=== PATIENT | female | born 1940 | race Caucasian/White ===

== ENCOUNTER → 2017-11-05 08:40 | Outpatient (BNVA) | payer MEDICARE, SELFPAY | PROVIDERS: PCP Family Medicine; Referring Provider Family Medicine; Visit Provider Student in an Organized Health Care Education/Training Program | DX: M76.71 Peroneal tendinitis, right leg (principal) | CPT/HCPCS: 99214 ==

== ENCOUNTER 2017-11-05 12:36 | Outpatient (CLI) | payer MEDICARE, SELFPAY ==
--- NOTE | 2017-11-05 09:30 | DI.RAD_ITS ---
SYMPTOMS/DIAGNOSIS: RT LEG PAIN RIGHT LEG: Two views were obtained. There are mild degenerative changes of the knee. No other significant bony abnormality is seen.
== END 2017-11-05 12:56 ==
PROVIDERS: PCP Family Medicine; Visit Provider Student in an Organized Health Care Education/Training Program
DX: M79.604 Pain in right leg (principal); M17.11 Unilateral primary osteoarthritis, right knee
CPT/HCPCS: 99214; 73590

== ENCOUNTER 2018-02-26 22:08 | Emergency (ER) | payer MEDICARE, SELFPAY ==
[2018-02-26 22:13] VITALS: BP 154/83; PULSE 90; RESP 18; TEMP 36.7; O2SAT 97
--- NOTE | 2018-02-26 22:21 | DI.CT_ITS ---
SYMPTOM/DIAGNOSIS: RT FLANK PAIN RENAL COLIC CT: A noncontrast exam was performed. Comparison is made with 06/14/09. There is severe left hydronephrosis. The left ureter is also severely dilated. There is an obstructing stone in the distal ureter. This is a similar or same position as the stone on the previous exam. It measures 5 mm. in greatest dimension. The degree of hydronephrosis has increased significantly since the previous exam. There is severe renal parenchymal atrophy. A large parapelvic cyst of the right kidney with calcifications is relatively unchanged. No right hydronephrosis is seen. The bladder is unremarkable. The uterus and ovaries also are unremarkable. The visualized portions of the liver and spleen appear normal. The gallbladder, pancreas and adrenals also appear normal. The appendix has a normal appearance. There is no bowel dilatation or inflammatory change. No free fluid or adenopathy is seen. The aorta is normal in diameter. There is a small amount of fat at the umbilicus. Degenerative disc changes are seen in the lumbar spine. IMPRESSION: Severe left hydronephrosis secondary to a 5 mm. stone at the distal left ureter. The stone position is unchanged from the previous exam. There is underlying severe left renal atrophy. There is a relatively stable right parapelvic renal cyst.
--- NOTE | 2018-02-26 22:26 | ED.GENADUL_ITS ---
Discharge Plan Disposition Patient Disposition: HOME Condition: Stable Discharge Details Chief Complaint: FlankPain Clinical Impression: Kidney stone on left side Primary Care Provider: Richie Mendez ED Provider: Trent Ch Home Meds and New Rx's Prescriptions: New ondansetron 4 mg tablet,disintegrating 4 mg PO TID PRN (Reason: nausea and vomiting) Qty: 30 RF: 0 oxycodone 5 mg tablet 5 mg PO Q6H PRN (Reason: pain) Qty: 10 RF: 0 Discharge Instructions Instructions: Kidney Stones (ED) Additional Instructions: You have a kidney stone on the left side you can take 1000mg tylenol every 6 hours. If you need additional pain relief take 1 oxycodone, do not drink alcohol or drive if you take this medicine you should be contacted with an appointment with urology if you have fevers, severe worsening pain that doesn't improve with pain medication or uncontrolled vomit return to the emergency department for reevaluation Medical Decision Making 77 yo female with hx of nonfunctioning kidney who comes in with left flank pain since 11am. She states she has a hx of stones but not in over 10 years and hasn't seen a urologist since. Since 11am she has had sharp left flank and llq pain. Has mild llq pain on exam and cva tenderness. No other abdominal tenderness, no fevers or chills, denies chest pain or sob. Will eval for kidney stone vs diverticulitis with CT and monitor Labs are unremarkable, her pain is much improved. CT shows distal left kidney stone and evidence of chronic obstruction as well. No evidence of infection, is hd stable for d/c. Will have her f/u with urology ADRIANA and return precautions given Differential Diagnosis kidney stone, lumbar strain, diverticulitis Imaging Data Radiologic Study: Attestation: I personally reviewed and interpreted this imaging study as follows: Imaging: CT Scan Radiologist's impression: IMPRESSION: 1. There is an obstructing 4.5 mm diameter distal left ureteric calculus with severe left hydroureter and severe left hydronephrosis. There is almost no discernible renal cortex remaining within the right kidney. No evidence of significant perinephric stranding or periureteric stranding. 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 2. There is a large, complex, septated and calcified renal cyst seen within the right kidney arising from the inferior pole. Impression. There is moderate to severe right hydronephrosis. No definitive right ureteric calculi are identified. Lab Data Lab results reviewed: Yes I reviewed the patient's lab results. HPI General Mode of arrival: ambulatory . Date/Time Provider Initiated Documentation: 02/26/18 22:09 . Limitations to Documentation: no limitations . Information obtained by: patient . History of Present Illness 77 year old F presents to the emergency department with the chief complaint of left flank pain, described as moderate, Quality is described as stabbing, Patient started experiencing this hour(s) (11) and it has been constant. No relieving factors improve symptom(s), No exacerbating factors reported . Patient notes other (nausea). Patient did receive the following treatments prior to arrival, none Related Data Home Medications Medication Instructions Recorded Confirmed ondansetron 4 mg PO TID PRN #30 tab 02/26/18 oxycodone 5 mg PO Q6H PRN #10 tab 02/26/18 Previous Rx's Medication Instructions Recorded ondansetron 4 mg PO TID PRN #30 tab 02/26/18 oxycodone 5 mg PO Q6H PRN #10 tab 02/26/18 Allergies Allergy/AdvReac Type Severity Reaction Status Date / Time codeine AdvReac SLEEPS Unverified 02/26/18 23:29 ibuprofen AdvReac ONE KIDNEY Unverified 02/26/18 23:29 Review of Systems Review of Systems All systems reviewed & are unremarkable except as noted in HPI and below Constitutional Denies chills, Denies fever(s) and Denies weakness Eyes Denies loss of vision ENT Denies change in voice Cardiovascular Denies chest pain and Denies dyspnea Respiratory Denies dyspnea Gastrointestinal Denies nausea Genitourinary Denies dysuria Musculoskeletal Denies joint swelling Integumentary/Breasts Denies rash Neurologic Denies loss of vision and Denies weakness PFSH Medical History Primary osteoarthritis of right knee (Chronic 04/04/15) GERD IBS Migraine Non functing kidney elevated lipids kidney stones visual issues Surgical History Ligation of fallopian tube kidney surgery X 2 procedures for kidney stones Family History Mother Diabetes Dementia Father Heart disease Sister Breast cancer Social History Smoking/Tobacco Use Status: Never Exam Const General: no acute distress Orientation: alert HENMT Head: normal to inspection Ears: external ears normal General nose exam: external nose normal Mouth: moist mucous membranes Eyes General: appearance normal, both eyes and all related structures Neck Neck: normal visual inspection Resp Effort & Inspection: normal respiratory effort and able to speak in complete sentences Cardio Rate: regular rate GI Palpation: soft Skin General skin exam: no rashes or lesions noted Neuro General: alert and oriented x3 Extrem General: normal to inspection Psych Mental Status: mental status grossly normal
[2018-02-26] MEDS: Ondansetron 4 MG/2 ML VIAL IVP (22:29)
[2018-02-26] MEDS: Normal Saline 1,000 ML 1000 ML IV (22:30)
[2018-02-26] MEDS: MORPHine 10 MG/ML VIAL 4 MG IVP (22:30)
[2018-02-26 22:34] LABS: Abs Immature Grans 0.01 k/cumm (0.0-0.09); Absolute Basophil Count 0.02 k/cumm (0.0-0.2); Absolute Eosinophil Count 0.23 k/cumm (0.0-0.7); Absolute Lymphocyte Count 1.99 k/cumm (1.2-3.4); Absolute Monocyte Count 0.54 k/cumm (0.11-0.7); Absolute Neutrophil Count 4.64 k/cumm (1.2-6.7); Basophils % 0.3; Eosinophils % 3.1; HCT 45.2 % (36.0-46.0); HGB 14.7 g/dL (12.0-15.5); Immature Grans % 0.1; Lymphocytes % 26.8; Mean Corp. HGB Concentration 32.5 g/dL (32.0-36.0); Mean Corpuscular Hemoglobin 29.1 pg (27.0-33.0); Mean Corpuscular Volume 89.3 fL (80-95); Mean Platelet Volume 11.2 fL (8.0-11.0); Monocytes % 7.3; Neutrophils % 62.4; Platelet Count 204 x1000/uL (130-400); RBC 5.06 m/cumm (4.00-5.20); RBC Distribution Width 14.8 % (11.7-14.6); White Blood Cell Count 7.43 k/cumm (4.4-10.8)
[2018-02-26 22:48] LABS: ALT 32 U/L (12-78); AST 22 U/L (15-37); Albumin 3.7 g/dL (3.4-5.0); Alkaline Phosphatase 106 U/L (46-116); Anion Gap 11.7 mmol/L (3-11); BUN 15 mg/dL (7-18); Bilirubin, Direct 0.08 mg/dL (0.00-0.20); Bilirubin, Total 0.3 mg/dL (0.2-1.0); CO2 23.3 mmol/L (21.0-32.0); CREATININE 1.06 mg/dL (0.55-1.02); Calcium 9.5 mg/dL (8.5-10.1); Chloride 103 mmol/L (98-107); Estimated GFR 50.54 (mL/min/1.73m2); Glucose 105 mg/dL (70-100); Lipase 250 U/L (73-393); Magnesium 1.9 mg/dL (1.8-2.4); Potassium 4.1 mmol/L (3.5-5.1); Sodium 138 mmol/L (136-145); Total Protein 7.8 g/dL (6.4-8.2)
[2018-02-26 23:02] LABS: Bilirubin Negative (Negative); Blood Small (Negative); Clarity Clear; Glucose Negative (Negative); Ketones Negative (Negative); Leukocyte Esterase Trace (Negative); Nitrite Negative (Negative); Urobilinogen 0.2 EU/dL (Up TO 0.2); pH 6.5 (5-8)
[2018-02-26 23:12] LABS: Bacteria Negative HPF (Negative); C & S Indicated? Yes; Casts Negative LPF (Negative); Crystals Negative HPF (Negative); Epithelial Cells Negative HPF (Negative); Mucus Negative (Negative); Other Cells Negative (Negative); RBC Negative (0-2); WBC 0-2 HPF (0-5)
[2018-02-26 23:15] LABS: INR 0.9 (0.9-1.1); PTT Activated 24.7 sec (21.0-31.4); Prothrombin Time 9.1 sec (9.3-11.0)
--- NOTE | 2018-02-26 23:36 | DI.VRAD_ITS ---
EXAM: CT Abdomen and Pelvis Without Contrast EXAM DATE/TIME: 02/26/2018 10:22 PM CLINICAL HISTORY: 77 years old, female; Pain; Abdominal pain; Localized; Left; Prior surgery; Surgery date: 6+ months; Surgery type: Stent placed in left kidney in 2002. ; Patient HX: Left sided back/ abdominal pain, HX of kidney stones, no kidney stone since 2009. No blood in urine, no difficulty urinating. TECHNIQUE: Axial computed tomography images of the abdomen and pelvis without contrast. All CT scans at this facility use at least one of these dose optimization techniques: automated exposure control; mA and/or kV adjustment per patient size (includes targeted exams where dose is matched to clinical indication); or iterative reconstruction. Coronal and sagittal reformatted images were created and reviewed. COMPARISON: CR LEFT HIP COMPLETE \T\ AP PELVIS 09/26/2014 11:24 AM FINDINGS: Lower thorax: The lungs are normal. There is no evidence of pneumothorax. There are no pleural effusions present. The cardiac structures are normal. ABDOMEN: Liver: There are no focal liver lesions present. Gallbladder and bile ducts: Normal. No calcified stones. No ductal dilation. Pancreas: Normal. No ductal dilation. Spleen: Calcifications within the splenic parenchyma consistent with old granulomatous exposure. Adrenals: The adrenal glands are normal. Kidneys and ureters: There is an obstructing 4.5 mm diameter distal left ureteric calculus with severe left hydroureter and severe left hydronephrosis. There is almost no discernible renal cortex remaining within the right kidney. No evidence of significant perinephric stranding or periureteric stranding. These findings are consistent with long-standing obstruction of the left distal ureter. There is a large, complex, septated and calcified renal cyst seen within the right kidney arising from the inferior pole. Impression. There is moderate to severe right hydronephrosis. No definitive right ureteric calculi are identified. Stomach and bowel: There is no evidence of intestinal obstruction. There is mild increased colonic fecal content. The colon is nondilated. These findings suggest a mild degree of constipation. Clinical correlation recommended. Appendix: No evidence of appendicitis. PELVIS: Bladder: The bladder is normal. Reproductive: There is a small, simple appearing right ovarian cyst measuring 11 mm. No follow-up is necessary. ABDOMEN and PELVIS: Intraperitoneal space: There is no free intraperitoneal air. There is no evidence of free intraperitoneal or pelvic fluid. Bones/joints: The skeletal structures and soft tissues show no evidence of fracture or other acute processes. There is moderate to severe degenerative changes of the lumbosacral spine. Soft tissues: There is a fat-containing umbilical hernia. The extra-abdominal soft tissues are normal. Vasculature: The aorta is normal. The inferior venacava appears normal.The portal, mesenteric and splenic veins are patent.There is a fat-containing umbilical hernia. Lymph nodes: There is no evidence of lymphadenopathy. IMPRESSION: 1. There is an obstructing 4.5 mm diameter distal left ureteric calculus with severe left hydroureter and severe left hydronephrosis. There is almost no discernible renal cortex remaining within the right kidney. No evidence of significant perinephric stranding or periureteric stranding. 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 2. There is a large, complex, septated and calcified renal cyst seen within the right kidney arising from the inferior pole. Impression. There is moderate to severe right hydronephrosis. No definitive right ureteric calculi are identified. Dictated and Authenticated by: Stephan Salazar MD. Ordering:OSIEL Newman MD
[2018-02-26] MEDS: oxyCODONE 5 MG TAB PO (23:48)
[2018-02-26] MEDS: Ondansetron O.D.T. 4 MG TABEF PO (23:49)
[2018-02-27 00:01] VITALS: BP 134/68; PULSE 72; RESP 16; TEMP 36.5; O2SAT 72
--- NOTE | 2018-02-27 13:52 | PDOC.ERCMPRO ---
Care Management Progress Note 02/27-Dr. Ch requested assistance with a urology f/u as soon as possible for hydronephresis and kidney stones. Referral faxed to urology this am.
== END 2018-02-27 00:04 | disposition home or self-care (01) ==
PROVIDERS: Emergency Provider Emergency Medicine; PCP Family Medicine
DX: N13.1 Hydronephrosis with ureteral stricture, not elsewhere classified (principal); Z87.442 Personal history of urinary calculi
CPT/HCPCS: 36415; 80053; 80076; 83690; 96361; 96374; 96375; 99284; 74176; 81003; 81015; 83735; 85025; 85610; 85730; 87086; J2270; J2405

== ENCOUNTER → 2018-02-27 12:13 | Outpatient (BNVA) | payer MEDICARE, SELFPAY | PROVIDERS: PCP Family Medicine; Visit Provider Urology | DX: N20.1 Calculus of ureter (principal); N13.30 Unspecified hydronephrosis; N26.1 Atrophy of kidney (terminal); N28.1 Cyst of kidney, acquired | CPT/HCPCS: 99203; 99215 ==

== ENCOUNTER 2018-03-02 11:16 | Day surgery (SDC) | payer MEDICARE, SELFPAY ==
[2018-03-02] MEDS: Lactated Ringers 1,000 ML 80 ML IV (12:20)
--- NOTE | 2018-03-02 12:57 | DI.RAD_ITS ---
SYMPTOM/DIAGNOSIS: STONE OR RETROGRADE: Fluoroscopy Time: 48.5seconds Fluoroscopy was provided for Dr. Moralez while performing a retrograde examination. Please see procedure note for details.
[2018-03-02] MEDS: Lidocaine 2% Jelly 11 ML SYR (15:29)
[2018-03-02] MEDS: Omnipaque 300 MG/ML 50 ML BTL (15:29)
--- NOTE | 2018-03-02 15:50 | W.PM.DSUDISC ---
Discharge Plan Disposition Patient Disposition: HOME Condition: Stable Discharge Details Reason For Visit: (L) URETERAL STONE Attending Provider: Bryn Moralez Primary Care Provider: Richie Mendez Home Meds and New Rx's Prescriptions: No Action ondansetron 4 mg tablet,disintegrating 4 mg PO TID PRN (Reason: nausea and vomiting) Qty: 30 RF: 0 oxycodone 5 mg tablet 5 mg PO Q6H PRN (Reason: pain) Qty: 10 RF: 0 acetaminophen [Tylenol Extra Strength] 500 mg Tablet 1,000 mg PO QID PRNRF: 0 Discharge Instructions Additional Instructions: No definite f/u appt needed unless pt wants to discuss surgeries to remove left kidney Otherwise, she can call our office to arrange referral Activity:: Activity as Tolerated Diet:: As Tolerated Discharge Orders Discharge Orders: Discharge Order (Routine); Ordered 03/02/18 Ordered By: Bryn Moralez
[2018-03-02] MEDS: Phenazopyridine 200 MG TAB PO (16:17)
[2018-03-02 16:32] VITALS: BP 139/80; PULSE 76; RESP 17; TEMP 35.8; O2SAT 98
--- NOTE | 2018-03-03 08:56 | ROE_ITS ---
REPORT OF OPERATIVE PROCEDURE DATE OF SURGERY March 02, 2018 PREOPERATIVE DIAGNOSIS Left ureteral stone. POSTOPERATIVE DIAGNOSES Left ureteral stone with left ureteral stricture. PROCEDURE Cystoscopy, left retrograde pyelogram, left rigid ureteroscopy. SURGEON Bryn Moralez M.D. ANESTHESIA MAC with local. COMPLICATIONS None. HISTORY This is a 77-year-old woman with a long history of kidney stones. She has had a number of procedures in the past including ESWL and ureteroscopy. She has been identified as having a left ureteral stricture, which has made it difficult to treat pieter e of her stones. This has resulted in left hydronephrosis and a renal function of only 8% on the left side. She had remained asymptomatic for nearly 10 years, but recently developed left flank pain. On CT scan , she was found to have marked hydronephrosis and what appears to be a 4 to 5-mm stone in the left ur eter. We had discussed treatment options, including simple nephrectomy. She comes in now to undergo u reteroscopy to see if we are even able to access the stone. DESCRIPTION OF OPERATIVE PROCEDURE The patient was brought to the Operating Room on 03/02/2018. She was given Monitored Anesthesia Care a nd placed in the dorsal lithotomy position. Her genitalia was prepped and draped. A #22-Tanzanian rigid cystoscope was passed through the urethra into the bladder. The bladder was inspe cted. The left ureteral orifice was identified. I was able to access the left orifice with a #6-Tanzanian Access Catheter. I injected Omnipaque through the access catheter under fluoroscopic guidance. We found a blind-ending ureter with a tapered ending approximately 5 centimeters from the ureterovesical junction. I then attempted to pass a Glidewire to see if it would be able to pass the strictured area. Again, t his hit a blind-ending area. Finally, I passed a semi-rigid ureteroscope through the urethra, I was a ble to maneuver it into the left ureteral orifice and advance it up the ureter. I visualized the narr owing and again, was unable to pass a wire or any type of contrast through this region. Unable to gain access to the upper ureter, we ended the procedure at this point. She tolerated this p rocedure with no complications. If she remains symptomatic, my only other treatment option or suggest ion would be the simple nephrectomy.
== END 2018-03-02 16:58 | disposition home or self-care (01) ==
PROVIDERS: PCP Family Medicine; Visit Provider Urology
PROC: (CPT 74450; principal; 2018-03-02 13:45)
DX: N20.1 Calculus of ureter (principal); N13.1 Hydronephrosis with ureteral stricture, not elsewhere classified; Z87.442 Personal history of urinary calculi
CPT/HCPCS: 52351; 74420; J0690; Q9967

== ENCOUNTER 2018-07-11 20:10 | Emergency (ER) | payer MEDICARE, SELFPAY ==
[2018-07-11 20:19] VITALS: BP 173/92; PULSE 90; RESP 18; TEMP 36.5; O2SAT 97
--- NOTE | 2018-07-11 20:29 | DI.CT_ITS ---
SYMPTOMS/DIAGNOSIS: LT FLANK PAIN RENAL COLIC CT: Comparison is 02/26/18. There is again seen a 7 mm stone in the distal left ureter causing severe hydronephrosis and hydroureter. It appears unchanged compared to 02/26/18. There is significant left renal cortical thinning which appears chronic. There are large right renal cysts again noted. No evidence of obstructive uropathy on the right. The urinary bladder is intact. The reproductive organs are unremarkable. Lack of IV contrast does limit evaluation of the abdominal pelvic organs. IMPRESSION: No acute abnormality is seen in the unenhanced portions of the liver, spleen, pancreas, gallbladder and adrenal glands. The aorta is of normal caliber. The bowel shows no evidence of obstruction or inflammation. The reproductive organs are grossly unremarkable. No significant abdominal or pelvic adenopathy, ascites or pneumoperitoneum is present. Note is made of a small fat containing umbilical hernia. IMPRESSION: Stable severe left obstructive uropathy caused by a 7 mm stone in the distal ureter.
--- NOTE | 2018-07-11 20:37 | ED.GENADUL_ITS ---
Discharge Plan Disposition Patient Disposition: HOME Condition: Improving Discharge Details Chief Complaint: FlankPain Clinical Impression: Obstructive uropathy Primary Care Provider: Richie Mendez ED Provider: Teofilo Melendrez Home Meds and New Rx's Prescriptions: New ondansetron HCl [Zofran] 4 mg tablet 4 mg PO QID PRN (Reason: nausea and vomiting) Qty: 10 RF: 0 oxycodone 5 mg tablet 5 mg PO Q6H PRN (Reason: pain) Qty: 5 RF: 0 Continued oxycodone 5 mg tablet 5 mg PO Q6H PRN (Reason: pain) Qty: 10 RF: 0 acetaminophen [Tylenol Extra Strength] 500 mg Tablet 1,000 mg PO QID PRNRF: 0 Discharge Instructions Additional Instructions: May use the prescribed oxycodone, sparingly if needed for severe pain. Tylenol 500 to 975 mg every 6 hours if needed May use Zofran as needed for nausea. Please call the urology office on Friday for a follow-up appointment this week. Return if you develop a fever, worsening pain, or any other acute concerns. Your case was discussed with Dr Randolph from [facility] this evening Medical Decision Making 77-year-old female stone former presents with 2 days of colicky left-sided flank pain. She states she has a left renal cyst, chronic left renal stones and colic, and poor left renal function for which she has considered a nephrectomy with Dr. Velazquez at [facility]. She arrives today mildly hypertensive but without fever. She is in some distress. IV placed, patient given analgesia, fluids and antiemetic. She is referred for laboratory testing and CT imaging. Labs are reassuring with mild chronic renal insufficiency. Leuk esterase present, but negative nitrites in urine and no evidence of microscopic infection. CT reveals severe and chronic left obstructive uropathy with a 7 mm impacted stone in the distal left ureter. Images reviewed and case discussed with on-call Urology at [facility], Dr Randolph. He recommends ongoing treatment of pain, short term followup in clinic and probable interval nephrectomy. Patient consented for use of oxycodone. Will provide Zofran as well. She will follow-up in urology clinic this week. She understands return if she develops a fever or uncontrolled pain. Lab Data Lab results reviewed: Yes I reviewed the patient's lab results. Laboratory Results - last 24 hr 07/11/18 07/11/18 07/11/18 20:30 20:30 20:30 WBC 6.46 RBC 5.17 Hgb 15.0 Hct 47.1 H MCV 91.1 MCH 29.0 MCHC 31.8 L RDW 14.7 H Plt Count 219 MPV 11.2 H Immature Gran % 0.2 Neutrophils % 57.0 Lymphocytes % 32.4 Monocytes % 7.0 Eosinophils % 3.1 Basophils % 0.3 Absolute Neutrophils 3.69 Absolute Lymphocytes 2.09 Absolute Monocytes 0.45 Absolute Eosinophils 0.20 Absolute Basophils 0.02 Sodium 140 Potassium 4.0 Chloride 102 Carbon Dioxide 24.9 Anion Gap 13.1 H BUN 13 Creatinine 1.14 H Estimated GFR/1.73 m2 46.47 Glucose 124 H Calcium 9.1 Total Bilirubin 0.3 AST 24 ALT 35 Alkaline Phosphatase 110 Total Protein 7.9 Albumin 3.8 Urine Color Yellow Urine Clarity Clear Urine pH 6.0 Ur Specific [place] 1.015 Urine Protein Negative Urine Ketones Negative Urine Blood Trace-lysed H Urine Nitrite Negative Urine Bilirubin Negative Urine Urobilinogen 0.2 Ur Leukocyte Esterase Small H Urine RBC 3-5 H Urine WBC 3-5 Ur Epithelial Cells Rare Urine Crystals Negative Urine Bacteria Negative Urine Casts Negative Urine Mucus Negative Ur Culture Indicated? Yes Urine Glucose Negative HPI General Mode of arrival: ambulatory . Date/Time Provider Initiated Documentation: 07/11/18 20:11 . Limitations to Documentation: no limitations . Information obtained by: patient . History of Present Illness 77 year old F presents to the emergency department with the chief complaint of Left flank pain., described as moderate, severe and similar to prior episodes, Quality is described as dull, and is localized to the back, abdomen and left. Patient reports radiation to back and abdomen. Patient started experiencing this day(s) and it has been intermittent. No relieving factors improve symptom(s), No exacerbating factors reported . Patient notes denies fever/chills and nausea/vomiting. Patient did receive the following treatments prior to arrival, NSAID Related Data Home Medications Medication Instructions Recorded Confirmed oxycodone 5 mg PO Q6H PRN #10 tab 02/26/18 07/11/18 acetaminophen [Tylenol Extra 1,000 mg PO QID PRN 03/02/18 07/11/18 Strength] ondansetron HCl [Zofran] 4 mg PO QID PRN #10 tab 07/11/18 oxycodone 5 mg PO Q6H PRN #5 tab 07/11/18 Previous Rx's Medication Instructions Recorded oxycodone 5 mg PO Q6H PRN #10 tab 02/26/18 ondansetron HCl [Zofran] 4 mg PO QID PRN #10 tab 07/11/18 oxycodone 5 mg PO Q6H PRN #5 tab 07/11/18 Allergies Allergy/AdvReac Type Severity Reaction Status Date / Time codeine AdvReac SLEEPS Unverified 07/11/18 20:24 ibuprofen AdvReac ONE KIDNEY Unverified 07/11/18 20:24 General Stated Complaint: FlankPain KAREN: 3 Review of Systems Review of Systems No fever. States she has 8% of left kidney remaining and has been candidate for nephrectomy with Dr. Velazquez due to chronic pain and stones. 8 systems reviewed and otherwise neg PFSH Medical History Primary osteoarthritis of right knee (Chronic 04/04/15) GERD IBS Migraine Non functing kidney elevated lipids kidney stones visual issues Surgical History Ligation of fallopian tube kidney surgery X 2 procedures for kidney stones Family History Mother Diabetes Dementia Father Heart disease Sister Breast cancer Social History Smoking/Tobacco Use Status: Never Alcohol Intake: never Drug use: Never Do you feel safe at home: Yes Do you feel safe in your relationship?: Yes Exam Narrative Exam Narrative: GEN: awake, alert, oriented 3. Pleasant, well groomed, interactive, in mild to moderate distress. HEAD: Normocephalic, atraumatic ENT: Mucous membranes moist, oropharynx unremarkable, External ear exam unremarkable EYES: PERRL, EOMI NECK: Full ROM, no [place], no menigismus CHEST/RESP: Nontender, clear to auscultation bilateral, no wheeze/rhonchi/rales CARDIOVASCULAR: RRR, no murmur, rub lexy. 2+ Rad pulse bilateral ABDOMEN: Soft, tender left side without rebound, no mass. +Bowel sounds EXT: Full ROM, no edema, no rash Neuro: Grossly normal neurologic exam, conversant, interactive. Psych: Speech fluent, thoughts congruent, affect normal Course Vital Signs Temperature 36.5 C 07/11/18 20:19 Pulse 90 07/11/18 20:19 Respiratory Rate 18 07/11/18 20:19 Blood Pressure 173/92 H 07/11/18 20:19 Pulse Oximetry 97 07/11/18 20:19 Temperature 36.5 C 07/11/18 20:19 Temperature Source Skin 07/11/18 20:19 Pulse 90 07/11/18 20:19 Respiratory Rate 18 07/11/18 20:19 Respiratory Effort Non-Labored 07/11/18 20:23 Blood Pressure 173/92 H 07/11/18 20:19 Blood Pressure Position Supine 07/11/18 20:19 Pulse Oximetry 97 07/11/18 20:19 Oxygen Delivery Method Room Air 07/11/18 20:19 Oxygen Flow Rate 0 07/11/18 20:19 Pain Level 8 07/11/18 20:34
[2018-07-11] MEDS: MORPHine 10 MG/ML VIAL 4 MG IVP (20:41)
[2018-07-11] MEDS: Ondansetron 4 MG/2 ML VIAL IVP (20:41)
[2018-07-11] MEDS: Normal Saline 1,000 ML 150 ML IV (20:42)
[2018-07-11 20:44] LABS: Abs Immature Grans 0.01 k/cumm (0.0-0.09); Absolute Basophil Count 0.02 k/cumm (0.0-0.2); Absolute Lymphocyte Count 2.09 k/cumm (1.2-3.4); Absolute Monocyte Count 0.45 k/cumm (0.11-0.7); Absolute Neutrophil Count 3.69 k/cumm (1.2-6.7); Basophils % 0.3; Eosinophils % 3.1; HCT 47.1 % (36.0-46.0); Immature Grans % 0.2; Lymphocytes % 32.4; Mean Corp. HGB Concentration 31.8 g/dL (32.0-36.0); Mean Corpuscular Volume 91.1 fL (80-95); Mean Platelet Volume 11.2 fL (8.0-11.0); Platelet Count 219 x1000/uL (130-400); RBC 5.17 m/cumm (4.00-5.20); RBC Distribution Width 14.7 % (11.7-14.6); White Blood Cell Count 6.46 k/cumm (4.4-10.8)
[2018-07-11 20:47] LABS: Bilirubin Negative (Negative); Blood Trace-lysed (Negative); Clarity Clear; Glucose Negative (Negative); Ketones Negative (Negative); Leukocyte Esterase Small (Negative); Nitrite Negative (Negative); Specific Gravity 1.015 (1.005-1.025); Urobilinogen 0.2 EU/dL (Up TO 0.2)
[2018-07-11 20:57] LABS: ALT 35 U/L (12-78); AST 24 U/L (15-37); Albumin 3.8 g/dL (3.4-5.0); Alkaline Phosphatase 110 U/L (46-116); Anion Gap 13.1 mmol/L (3-11); BUN 13 mg/dL (7-18); Bilirubin, Total 0.3 mg/dL (0.2-1.0); CO2 24.9 mmol/L (21.0-32.0); CREATININE 1.14 mg/dL (0.55-1.02); Calcium 9.1 mg/dL (8.5-10.1); Chloride 102 mmol/L (98-107); Estimated GFR 46.47 (mL/min/1.73m2); Glucose 124 mg/dL (70-100); Sodium 140 mmol/L (136-145); Total Protein 7.9 g/dL (6.4-8.2)
[2018-07-11 20:58] LABS: Bacteria Negative HPF (Negative); C & S Indicated? Yes; Casts Negative LPF (Negative); Crystals Negative HPF (Negative); Epithelial Cells Rare HPF (Negative); Mucus Negative (Negative)
[2018-07-11 21:00] VITALS: BP 131/64; PULSE 64; RESP 18; O2SAT 96
--- NOTE | 2018-07-11 21:36 | DI.VRAD_ITS ---
EXAM: CT Abdomen and Pelvis Without Contrast EXAM DATE/TIME: 07/11/2018 8:30 PM CLINICAL HISTORY: 77 years old, female; Abdominal pain; Left; Patient HX: L flank pain TECHNIQUE: Imaging protocol: Axial computed tomography images of the abdomen and pelvis without contrast. Coronal and sagittal reformatted images were created and reviewed. COMPARISON: CT renal colic wo 02/26/2018 10:34 PM FINDINGS: Lungs: Atelectasis and mild scarring in the lung bases. ABDOMEN: Liver: Visualized liver appears grossly unremarkable except for a punctate calcified granuloma in the right hepatic lobe which is of no clinical concern. Gallbladder and bile ducts: Gallbladder is unremarkable. No biliary ductal dilation. Pancreas: Pancreas is normal. Spleen: Splenic calcifications are of no clinical concern. No acute splenic findings. Adrenals: Adrenal glands are unremarkable. Kidneys and ureters: Stable large inferior pole right renal cyst and multiple parapelvic cysts. No evidence of right obstructive uropathy. Stable 7 mm x 6 mm calculus impacted in the distal left ureter causing severe upstream hydroureteronephrosis. There is severe cortical thinning throughout the left kidney, stable. The findings are most likely related to chronic left obstructive uropathy. There is no significant left perinephric or periureteral stranding. Stomach and bowel: No bowel obstruction or significant bowel wall thickening. Evidence for moderate to severe constipation. Appendix: No evidence of acute appendicitis. PELVIS: Bladder: Urinary bladder appears grossly unremarkable. Reproductive: Unremarkable as visualized. ABDOMEN and PELVIS: Intraperitoneal space: Normal. No free air. No significant fluid collection. Bones/joints: No acute skeletal abnormality or aggressive osseous lesion. Soft tissues: Unremarkable. Vasculature: No acute vascular pathology grossly seen. Lymph nodes: No concerning abdominal pelvic adenopathy is appreciated. IMPRESSION: 1. Stable severe and chronic left obstructive uropathy caused by a 7 mm stone impacted in the distal left ureter. No acute findings otherwise noted. 2. Other stable/chronic findings as detailed above. Dictated and Authenticated by: Kalia Fisher MD. Ordering:LAUREL Red MD
[2018-07-11 22:00] VITALS: BP 123/70; PULSE 68; RESP 18; O2SAT 95
[2018-07-11] MEDS: Normal Saline Flush 10 ML SYR IVP (22:11)
[2018-07-11] MEDS: oxyCODONE 5 MG TAB 20 MG PO (23:50)
[2018-07-11] MEDS: Ondansetron O.D.T. 4 MG TABEF (23:51)
[2018-07-11 23:56] VITALS: BP 108/64; PULSE 69; RESP 16; TEMP 36.6; O2SAT 96
== END 2018-07-11 23:55 | disposition home or self-care (01) ==
PROVIDERS: Emergency Provider Emergency Medicine; PCP Family Medicine
DX: N13.2 Hydronephrosis with renal and ureteral calculous obstruction (principal); I12.9 Hypertensive chronic kidney disease with stage 1 through stage 4 chronic kidney disease, or unspecified chronic kidney disease; N18.9 Chronic kidney disease, unspecified; Z87.442 Personal history of urinary calculi
CPT/HCPCS: 36415; 80053; 96361; 96374; 96375; 96376; 99284; 74176; 81003; 81015; 85025; 87086; J2270; J2405

== ENCOUNTER 2019-02-01 01:06 | Outpatient (CLI) | payer MEDICARE, SELFPAY ==
--- NOTE | 2019-02-01 15:36 | DI.CT_ITS ---
EXAM: CT ABDOMEN PELVIS WO CLINICAL HISTORY: LOWER ABD PAIN, H/O LT NEPHRECTOMY, PERIINCISIONAL PAIN, ? HERNIA TECHNIQUE: Post oral contrast. Without IV contrast. COMPARISON: CT renal colic wo from 07/11/2018 FINDINGS: Patient is now status post left nephrectomy. There is again noted to be a large cyst at the lower po le of the right kidney. No ureteral or bladder calculi are seen. Heart size is normal. No pleural or pericardial effusions are seen. The lung bases are clear. The liver, gallbladder, spleen, pancre as and adrenals are unremarkable. The appendix appears normal. There is no bowel dilatation or infl ammatory change. There is a small amount of fat herniating through the paraumbilical region, which w as not seen on the previous exam. No additional hernias are seen. The uterus and ovaries are unrema rkable. There are degenerative changes in the spine. IMPRESSION: Status post left nephrectomy. Stable appearance of right kidney with large inferior pole cyst. A sm all amount of fat is seen herniating through a postsurgical defect near the umbilicus.
== END 2019-02-01 01:26 ==
PROVIDERS: PCP Family Medicine; Visit Provider Urology
DX: R10.31 Right lower quadrant pain (principal); Z90.5 Acquired absence of kidney; N28.1 Cyst of kidney, acquired; K42.9 Umbilical hernia without obstruction or gangrene
CPT/HCPCS: 74176

== ENCOUNTER → 2019-12-27 11:24 | Outpatient (BNVA) | payer MEDICARE, SELFPAY | PROVIDERS: PCP Family Medicine; Referring Provider Family Medicine; Visit Provider Surgery | DX: K43.2 Incisional hernia without obstruction or gangrene (principal); Z90.5 Acquired absence of kidney | CPT/HCPCS: 99204; 99214 ==

== ENCOUNTER 2020-01-07 04:02 | Outpatient (CLI) | payer MEDICARE, SELFPAY ==
--- NOTE | 2020-01-07 11:45 | DI.MAMMO_ITS ---
EXAM: MG MAMMO SCREENING CLINICAL HISTORY: screening TECHNIQUE: Bilateral full field digital CC and MLO mammographic images were obtained with 3D tomosyn thesis and utilizing computer aided detection (CAD). COMPARISON: Available for comparison. FINDINGS: Masses/Architectural Distortion: None seen. Microcalcifications: No suspicious pleomorphic-type are seen. Skin Thickening/Nipple Retraction: None. IMPRESSION: 1. No significant interval change with no specific features of malignancy noted. 2. Unless there is more urgent need, screening mammography is recommended, as per [employer] guidelines. BI-RADS Category 1 - Negative Breast Density - Category C - Heterogeneously dense The mammogram demonstrates the patient's breast tissue is dense. Dense breast tissue is very common a nd is not abnormal but dense breast tissue can make it harder to find cancer on a mammogram. Also, de nse breast tissue may increase their breast cancer risk. This information about the result of the [facility] mogram report was provided to the patient to raise their awareness. Use this report when you speak wi th the patient about their risks for breast cancer, which includes their family history. At that time , you may recommend for more screening tests (Ultrasound or MRI) as they might be useful based on the ir risk. A negative radiographic report should not delay biopsy if a dominant or clinically suspicious mass is present. Up to ten percent of cancers are not identified on mammography. A negative report may reinforce clinical impression. Adenosis and dense breasts may obscure an underlying neoplasm. False positive reports average 6 to 10%. Patient will receive a letter notifying them of these results.
== END 2020-01-07 04:22 ==
PROVIDERS: PCP Family Medicine; Visit Provider Nurse Practitioner Family
DX: Z12.31 Encounter for screening mammogram for malignant neoplasm of breast (principal)
CPT/HCPCS: 77063; 77067

== ENCOUNTER 2020-01-14 04:14 | Outpatient (CLI) | payer MEDICARE, SELFPAY ==
[2020-01-15 11:49] LABS: SARS-CoV-2 RNA Source Nasal/Nares
[2020-01-15 11:50] LABS: SARS-CoV-2 RNA Not Detected (NotDetected)
== END 2020-01-14 04:34 ==
PROVIDERS: PCP Family Medicine; Visit Provider Surgery
DX: Z11.59 Encounter for screening for other viral diseases (principal); Z01.818 Encounter for other preprocedural examination
CPT/HCPCS: U0003

== ENCOUNTER 2020-01-19 08:13 | Day surgery (SDC) | payer MEDICARE, SELFPAY ==
--- NOTE | 2020-01-19 06:59 | W.PM.OP ---
Date of service: 01/19/20 Time of Service: 15:39 Operative Note Operative Note DATE OF PROCEDURE: 01/19/20 PRE-OP DIAGNOSIS: Incisional hernia POST-OP DIAGNOSIS: same PROCEDURE: Incisional hernia repair with mesh SURGEON: Tracey Felipe TYPING SECTION CHIEF: Preethi Crocker ANESTHESIA: GETA (ASA 2/ Nithin Amos CRNA) ESTIMATED BLOOD LOSS: 25 PATHOLOGY: none sent COMPLICATIONS: None Patient was transported to: PACU Patient's condition: stable Implants: Ventrio ST Hernia Patch: LOT- [id number] REF- [id number] 2020-07-14 Indications: Patient had hand assisted laparoscopic left nephrectomy for chronic nephrolithiasis/obstruction last August. The kidney was so large her abdominal incision was extended to remove it. She has noted pain in the periumbilical region since shortly after surgery. Worse with lifting or other activity. She can see a bulge especially with sitting up. No N/V or generalized abdominal pain. The LUQ port site incision is also tender. CT from 01/2019 shows a fat containing incisional hernia. Findings: 2.5 x 2.5 cm hernia defect just to left of his umbilicus Procedure Description: After informed consent was obtained the patient was taken to the operating room and placed in a supine position. Monitors and SCDs were applied and a timeout was done. The patient's name, date of , procedure type, procedure site, allergies to medications, preoperative antibiotic, and DVT prophylaxis were all reviewed. Fire risk was assessed. The patient was given a deep MAC sedation. Once sedated and comfortable the abdomen was prepped and draped in a sterile surgical fashion. The CT scan was reviewed prior to the surgery. The defect was just next to the umbilicus. 0.25% Bupivacaine mixed 50/50 with 1% Lidocaine was injected into the dermis and subcutaneous tissue. The old scar was opened with a 10 blade. Dissection was done with cautery through the subcutaneous tissues down to the fascia. The hernia defect was identified just to the left of the umbilicus and measured 2.5 x 2.5 cm . The hernia sac was opened and the peritoneum was swept for adhesions. No adhesions were noted. An 8 x 12 cm mesh was then placed under the peritoneum and secured with 2-0 Proline at the 3 and 9 o'clock position. The rest of the mesh was secured with dissolvable tacks. Once the mesh was secured the tissues were irrigated with some normal saline. No bleeding was identified. The fascia was closed over the mesh with 0 vicryl running suture. The subcutaneous tissue was re-approximated with interrupted 3-0 vicryl. The dermis was re-approximated with a running 4-0 Vicryl. The skin was cleaned and dried and skin affix was applied. The patient was woken up and taken back to recovery in stable condition. There were no immediate complications. Sponge, instrument and needle counts were correct at the end of the case x2.
--- NOTE | 2020-01-19 07:02 | W.PM.DSUDISC ---
Discharge Plan Disposition Patient Disposition: HOME Condition: Good Discharge Details Reason For Visit: Incisional hernia Attending Provider: Tracey Felipe Primary Care Provider: Richie Mendez Home Meds and New Rx's Prescriptions: New acetaminophen [Tylenol] 325 mg capsule 650 mg PO Q6H PRNQty: 30 RF: 0 Discharge Instructions Instructions: Open Herniorrhaphy (DC) Additional Instructions: Activity at Home after surgery: 1. Make sure you walk outside at least 4 times per day 2. You should be able to climb a flight of stairs 3. No driving while in pain or taking pain medications 4. No strenuous activity or heavy lifting for 4 weeks Diet, Nutrition, & wound healin. Avoid alcohol until after you are recovered from your surgery 2. Make sure to eat plenty of lean protein (meat, fish, eggs, cottage cheese, beans) 3. Eat a variety of fruits and vegetables. Eat plenty of high fiber foods to avoid constipation. 4. Drink plenty of liquids to stay hydrated and avoid constipation Pain Medications: 1. Tylenol 650 mg every 6 hours as needed 2. If a narcotic has been prescribed take as directed only for breakthrough pain For Constipation: 1. Take Milk of Magnesia or MiraLax as needed for constipation Other: 1. You may shower daily. Do not scrub the incisions 2. Do not soak the incisions for 1 week 3. You may alternate ice and heat as needed for pain and swelling Wound Care: 1. Keep the incisions clean and dry Please call our office if you develop: 1. Fevers >101.5 2. Nausea or Vomiting 3. Worsening pain 4. Redness and thick discharge from the wounds If after hours please call the Hospital at and ask to speak to the on-call surgeon Referrals: Tracey Felipe MD [ [facility] STAFF PHYSICIAN] - 01/28/20 9:30 am Activity:: No lifting >20 lb Diet:: As Tolerated Discharge Orders Discharge Orders: Discharge Order (Routine); Ordered 01/19/20 Ordered By: Tracey Felipe
[2020-01-19 08:20] VITALS: BP 154/80; PULSE 88; RESP 16; TEMP 36.1; O2SAT 100
[2020-01-19] MEDS: Lactated Ringers 1,000 ML 80 ML IV (08:55)
[2020-01-19] MEDS: ceFAZolin 2 GM/50 ML BAG IVPB (10:05)
[2020-01-19] MEDS: Bupivacaine LIPOSOME/PF 133 MG/10 ML VIAL IJ (10:41)
[2020-01-19] MEDS: Bupivacaine 0.5% Pres-Free 30 ML VIAL (10:42)
[2020-01-19] MEDS: Lidocaine 2% Multi-Dose 50 ML VIAL (10:43)
[2020-01-19 11:42] VITALS: BP 101/60; PULSE 75; RESP 18; TEMP 36.2; O2SAT 97
[2020-01-19 12:20] VITALS: BP 108/60; PULSE 70; RESP 16; TEMP 36.3; O2SAT 98
[2020-01-19] MEDS: oxyCODONE 5 MG TAB PO (13:02)
[2020-01-19 13:08] VITALS: BP 149/93; PULSE 76; RESP 20; TEMP 36.1; O2SAT 100
[2020-01-19 13:45] VITALS: BP 132/72; PULSE 78
== END 2020-01-19 13:55 | disposition home or self-care (01) ==
LOC: SUR 08:14
PROVIDERS: PCP Family Medicine; Visit Provider Surgery
PROC: (CPT 49560; principal; 2020-01-19 09:45)
DX: K43.2 Incisional hernia without obstruction or gangrene (principal); Z90.5 Acquired absence of kidney; G89.28 Other chronic postprocedural pain; R10.33 Periumbilical pain
CPT/HCPCS: 49560; 49568; C1781; J0131; J0690; J2001; J2250; J3010

== ENCOUNTER → 2020-01-28 09:29 | Outpatient (BNVA) | payer MEDICARE, SELFPAY | PROVIDERS: PCP Family Medicine; Referring Provider Family Medicine; Visit Provider Surgery | DX: Z48.815 Encounter for surgical aftercare following surgery on the digestive system (principal); Z87.19 Personal history of other diseases of the digestive system; R30.0 Dysuria ==

== ENCOUNTER 2020-02-16 15:53 | Outpatient (REF) | payer MEDICARE, SELFPAY ==
[2020-02-16 20:12] LABS: Anion Gap 7.9 mmol/L (3-11); BUN 16 mg/dL (7-18); CO2 27.1 mmol/L (21.0-32.0); CREATININE 1.12 mg/dL (0.55-1.02); Chloride 104 mmol/L (98-107); Estimated GFR 47.17 (mL/min/1.73m2); Glucose 93 mg/dL (74-106); Potassium 4.3 mmol/L (3.5-5.1); Sodium 139 mmol/L (136-145)
== END 2020-02-16 16:13 ==
LOC: LBO 15:53
PROVIDERS: PCP Family Medicine; Visit Provider Internal Medicine
DX: N18.9 Chronic kidney disease, unspecified (principal)
CPT/HCPCS: 80048

== ENCOUNTER 2020-02-17 14:22 | Outpatient (REF) | payer MEDICARE, SELFPAY | END 2020-02-17 14:42 | LOC: LBN 14:22 | PROVIDERS: PCP Family Medicine; Visit Provider Internal Medicine | DX: R10.9 Unspecified abdominal pain (principal); N18.9 Chronic kidney disease, unspecified; R82.998 Other abnormal findings in urine | CPT/HCPCS: 87086 ==

== ENCOUNTER 2020-06-26 16:24 | Emergency (ER) | payer MEDICARE, SELFPAY ==
--- NOTE | 2020-06-26 16:15 | DI.US_ITS ---
Exam(s) US LOWER EXTREMITY VENOUS RT EXAM: US LOWER EXTREMITY VENOUS RT CLINICAL HISTORY: pain/swelling. TECHNIQUE: Ultrasound performed using standard protocol. COMPARISON: No exams were available for comparison FINDINGS: Duplex venous ultrasound was performed according to the usual protocol. The deep veins are freely com pressible throughout and there is normal flow augmentation with manual calf compression. 2D and Doppl er evaluation are unremarkable. IMPRESSION: No evidence of deep venous thrombosis of the right lower extremity. Note is made of Escobar's cyst measuring about 3 x 2.2 x 0.5 cm in diameter. DATA REPOSITORY:
[2020-06-26 16:32] VITALS: BP 163/97; PULSE 70; RESP 18; TEMP 36.7; O2SAT 97
--- NOTE | 2020-06-26 16:48 | ED.GENADUL_ITS ---
Discharge Plan Disposition Patient Disposition: HOME Condition: Stable Discharge Details Clinical Impression: Escobar's cyst of knee Primary Care Provider: Richie Mendez ED Provider: Epifanio Villasenor Discharge Instructions Instructions: Escobar Cyst (ED) Additional Instructions: Ultrasound negative for DVT. It does show a escobar Cyst. Jemal wrap as tolerated. Rest, elevate, warm compresses every 2 hours for 20 minutes. Gentle stretching. Use your miller as you typically would. Vatq-daq-[id number] medication as directed for symptomatic control. Please contact your primary care provider, on the following symptoms, and need for reevaluation. Please try to be seen by Ortho sooner than already scheduled. Watch for new/worsening symptoms and return to the ER for any concerns. Medical Decision Making 79-year-old female with osteoarthritis of the right knee presents for increased pain over the past several days, atraumatic. Clinically she appears well, nontoxic. O2 sat is 97% on room air pulse 70. No erythema, warmth, ecchymosis or swelling. Extremely low suspicion for acute bony abnormality given no recent trauma, low suspicion for infection given her presentation, and low stage for DVT given negative Homans' sign. I do question if this is a exacerbation of her chronic osteoarthritis versus potential Escobar's cyst. I do not believe emergent x-ray is indicated but will obtain ultrasound. Ultrasound obtained, read by radiology as no DVT, there is a Escobar's cyst. Discussed ultrasound findings with patient. Discussed conservative management of a Escobar's cyst. Jemal wrap applied. She will contact her primary care provider for outpatient reevaluation and attempt to be seen sooner by orthopedics if possible. She already has a cane to help with ambulation. She declines a walker. Patient has no additional questions or concerns and is comfortable discharge. Medical Records Medical records reviewed: Yes I reviewed the patient's medical records. Imaging Data Radiologic Study: Attestation: I personally reviewed and interpreted this imaging study as follows: Imaging: Ultrasound Radiologist's impression: Venous, right lower extremity, negative DVT. Positive Escobar's cyst HPI General Mode of arrival: wheelchair . Date/Time Provider Initiated Documentation: 06/26/20 16:27 . Limitations to Documentation: no limitations . Information obtained by: patient . HPI Narrative: This is a 79-year-old female, typically ambulates with a cane, past medical history of GERD, migraines, osteoarthritis of the right knee, chronic kidney disease, hypertension. She presents to the ER reporting right leg pain primarily behind the knee that does extend upward slightly. She states the pain has been there for last several days, no obvious trauma. She denies recent illness, fever, chest pain, shortness of breath, redness, numbness, tingling, weakness. She reports at rest the pain is mild attempting to get up from a sitting position makes the pain much worse. She states that when she is upright and ambulatory things seem to get slightly better. She has not taken any huea-hcb-evbgbbr medication. She was able to contact orthopedic but does not have an appointment till the end of July. She contacted her primary care provider and they recommended coming to the ER for ultrasound to rule out DVT. She denies anticoagulation, history of DVT or PE. Related Data Allergies Allergy/AdvReac Type Severity Reaction Status Date / Time codeine AdvReac SLEEPS Verified 06/26/20 16:37 ibuprofen AdvReac ONE KIDNEY Verified 06/26/20 16:37 skin affix AdvReac Mild Skin Rash Uncoded 06/26/20 16:37 General Stated Complaint: Vascular KAREN: 3 Review of Systems Constitutional Constitutional: Denies fever(s) Cardiovascular Cardiovascular: Denies chest pain and Denies dyspnea Respiratory Respiratory: Denies cough and Denies dyspnea Musculoskeletal Musculoskeletal: Reports arthralgias, Denies numbness, Reports stiffness and Denies tingling Integumentary/Breasts Skin/Breast: Denies rash Neurologic Neurologic: Denies numbness and Denies tingling [facility] Medical History elevated lipids GERD IBS denies having. kidney stones Migraine Non functing kidney Primary osteoarthritis of right knee (04/04/15) visual issues Surgical History H/O arthroscopic knee surgery Right knee. History of nephrectomy, left (08/21/18) Left lap hand assisted readical nephrectomy Ligation of fallopian tube procedures for kidney stones S/P hernia repair incisional hernia Family History Mother Diabetes Dementia Father Heart disease Sister Breast cancer Social History Smoking/Tobacco Use Status: Never Smoking risk assessment performed?: Yes Alcohol Intake: never Drug use: Never Substance use type: does not use Do you feel safe at home: Yes Do you feel safe in your relationship?: Yes Female Reproductive History Menstrual Menopause type: natural History History 5 Para Hx # Term Pregnancies 4 Multiple births Hx # Pregnancies Ectopic pregnancies AB induced Hx Number of Living Children AB spontaneous Exam Const General: cooperative, healthy appearing, comfortable and no acute distress Orientation: alert and awake HENKY Head: normal to inspection, normocephalic and atraumatic Eyes General: appearance normal, both eyes and all related structures Conjunctivae: conjunctivae normal Neck Neck: normal visual inspection, trachea midline and supple Resp Effort & Inspection: normal respiratory effort and able to speak in complete sentences Auscultation: clear to auscultation bilaterally Cardio Rate: regular rate Rhythm: regular rhythm Back/Spine/Pelvis Back: No back tenderness Skin General skin exam: no rashes or lesions noted Neuro General: patient alert, patient awake, moves all extremities and no focal motor deficits Cognition: normal cognition Speech: speech normal Gait: gait assisted Method: other (Cane) Sensory Exam: no sensory deficits noted Extrem General: normal to inspection, full ROM, capillary refill normal, no pedal edema, no calf tenderness and other (Right leg negative Homans' sign) Right lower extremity: normal to inspection, full ROM, normal capillary refill, hip/thigh Details: normal to inspection and normal ROM; no tenderness and no swelling, knee Details: normal to inspection, tenderness, normal ROM, knee ligament exam normal and other (Diffuse mild posterior discomfort); no swelling, lower leg Details: normal to inspection and no edema; no tenderness and no palpable cords, ankle Details: normal to inspection and no edema; no tenderness and no swelling and foot Details: normal capillary refill and normal to inspection Psych Appearance: grossly normal Mental Status: mental status grossly normal Course Vital Signs Vital signs: Vital Signs Temperature 36.7 C 06/26/20 16:32 Pulse 70 06/26/20 16:32 Respiratory Rate 18 06/26/20 16:32 Blood Pressure 163/97 H 06/26/20 16:32 Pulse Oximetry 97 06/26/20 16:32 Temperature 36.7 C 06/26/20 16:32 Temperature Source Oral 06/26/20 16:32 Pulse 70 05/10/21 16:32 Respiratory Rate 18 06/26/20 16:32 Respiratory Effort 06/26/20 16:41 Blood Pressure 163/97 H 06/26/20 16:32 Blood Pressure Position Sitting 06/26/20 16:32 Pulse Oximetry 97 06/26/20 16:32 Oxygen Delivery Method Room Air 06/26/20 16:32 Oxygen Flow Rate 0 06/26/20 16:32 Pain Level 6 06/26/20 16:32
--- NOTE | 2020-06-26 16:59 | DI.VRAD_ITS ---
PROCEDURE INFORMATION: Exam: US Duplex Right Lower Extremity Veins, Limited Exam date and time: 06/26/2020 4:50 PM Age: 79 years old Clinical indication: Other: RT leg pain/swelling TECHNIQUE: Imaging protocol: Real-time Duplex ultrasound of the Right Lower Extremity with 2-D mckee scale, color Doppler flow and spectral waveform analysis with image documentation. Limited exam was focused on the right lower extremity veins. COMPARISON: No relevant prior studies available. FINDINGS: Right deep veins: Unremarkable. The common femoral, femoral, proximal profunda femoral and popliteal veins are patent without thrombus. Normal Doppler waveforms. Normal compressibility and/or augmentation response. Right superficial veins: Unremarkable. Saphenofemoral junction is patent without thrombus. Soft tissues: Right popliteal cyst measuring 3 x 0.5 x 2.2 cm. IMPRESSION: No evidence for right lower extremity DVT Dictated and Authenticated by: Alyssa Westbrook MD. Ordering:LAUREN Godfrey MD
[2020-06-26 17:03] VITALS: BP 138/75; PULSE 74; RESP 18; O2SAT 97
== END 2020-06-26 18:06 | disposition home or self-care (01) ==
PROVIDERS: Emergency Provider Physician Assistant; PCP Family Medicine
DX: M71.21 Synovial cyst of popliteal space [Baker], right knee (principal)
CPT/HCPCS: 99284; 93971; 99282

== ENCOUNTER 2020-08-14 11:27 | Outpatient (CLI) | payer MEDICARE, SELFPAY ==
--- NOTE | 2020-08-14 11:15 | DI.RAD_ITS ---
Exam(s) XR KNEE LT 3V AP,LAT,HESHAM EXAM: XR KNEE LT 3V AP,LAT,HESHAM CLINICAL HISTORY: left knee pain. TECHNIQUE: 2D digital imaging was performed. COMPARISON: CR RIGHT KNEE 3 VIEWS from 08/21/2010 FINDINGS: Four views of the left knee reveal no evidence of fracture. No obvious joint effusion. No joint spa ce narrowing nor osteophytes. No lytic osseous lesions identified. Bone density is age-appropriate. IMPRESSION: DATA REPOSITORY: RADIATION DOSE DELIVERED:
--- NOTE | 2020-08-14 11:15 | DI.RAD_ITS ---
Exam(s) XR PELVIS AP EXAM: XR PELVIS AP CLINICAL HISTORY: weakness in flexion. TECHNIQUE: 2D digital imaging was performed. FINDINGS: There is no evidence of pelvic nor hip fracture. 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 No obviou s degenerative changes in the hips and sacroiliac joints appear age-appropriate. There is advanced n arrowing of disc spaces in the lumbar spine noted. IMPRESSION: DATA REPOSITORY: RADIATION DOSE DELIVERED:
--- NOTE | 2020-08-14 11:15 | DI.RAD_ITS ---
Exam(s) XR LUMBAR SPINE AP, LAT EXAM: XR LUMBAR SPINE AP, LAT CLINICAL HISTORY: R>L weakness and pain and numbness. TECHNIQUE: 2D digital imaging was performed. COMPARISON: No exams were available for comparison FINDINGS: Views reveal no evidence compression fracture listhesis. Mild scoliosis convex left. There is advan ty disc space narrowing at L3-4 and L4-5 levels. Moderate-advanced narrowing at the other levels. Sacroiliac joints appear unremarkable. IMPRESSION: Chronic advanced multilevel disc space narrowing. Degenerative scoliosis. DATA REPOSITORY: RADIATION DOSE DELIVERED:
--- NOTE | 2020-08-14 11:30 | DI.RAD_ITS ---
Exam(s) XR KNEE RT 3V AP,LAT,HESHAM EXAM: XR KNEE RT 3V AP,LAT,HESHAM CLINICAL HISTORY: right knee pain. TECHNIQUE: 2D digital imaging was performed. COMPARISON: CR XR KNEE LT 3V AP,LAT,HESHAM from 08/14/2020 FINDINGS: There is no evidence of fracture although there does appear to be a joint. There is advanced bone-on -bone narrowing the lateral compartment is seen on the standing view. No obvious narrowing of the me dial compartment. On the lateral view there is calcified density measuring 7 x 5 millimeters which h as the appearance of an intra-articular loose body. IMPRESSION: DATA REPOSITORY: RADIATION DOSE DELIVERED:
== END 2020-08-14 11:28 | disposition home or self-care (01) ==
PROVIDERS: PCP Family Medicine; Referring Provider Family Medicine; Visit Provider Student in an Organized Health Care Education/Training Program
DX: M25.561 Pain in right knee (principal); R29.898 Other symptoms and signs involving the musculoskeletal system; M48.061 Spinal stenosis, lumbar region without neurogenic claudication; M25.562 Pain in left knee
CPT/HCPCS: 73562; 99214; 72100; 72170

== ENCOUNTER 2020-08-29 01:56 | Outpatient (CLI) | payer MEDICARE, SELFPAY ==
--- NOTE | 2020-08-29 15:50 | DI.MRI_ITS ---
Exam(s) MR LUMBAR SPINE WO EXAM: MR LUMBAR SPINE WO CLINICAL HISTORY: R > L WEAKNESS PAIN AND NUMBNESS,[id number]. TECHNIQUE: Multiplanar multisequence MRI of the Lumbar spine was performed. COMPARISON: CR XR LUMBAR SPINE AP, LAT from 08/14/2020 CR XR LUMBAR SPINE AP, LAT from 08/14/2020 FINDINGS: There is scoliosis convex right. Incidentally noted is absence of a kidney in the left renal fossa a nd a huge cyst related to the right kidney. Conus medullaris is at normal level. There is no evidence of conus mass nor subjacent clumping of in trathecal nerve roots to suggest arachnoiditis. The distal thecal sac appears unremarkable.It is at the L2-3 level. 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 No other significant f indings in the sacral canal and no evidence of presacral mass. Bones:There are no fractures nor ominous osseous lesions in the lumbar vertebral bodies and visualize d sacrum. Fusion of sacral levels is noted. With respect to the individual levels... T12-L1: Mild annular bulging. No prominent disc herniation. Central canal dimensions are within nor mal limits. No foraminal stenosis. L1-2: Moderate-advanced decreased disc height. Annular bulging at the level of the exiting right nilay ral foramen results in an element of right-sided foraminal stenosis. No left-sided foraminal stenosi s. Central canal dimensions are lower normal. No prominent facet arthropathy. L2-3: Significant disc space narrowing which is more prominent on the left than the right side. Jyoti c type 2 sub endplate fatty marrow changes. At this level there is broad annular bulging. Scoliosis with annular bulging and left-sided foraminal stenosis noted. Mild annular bulging in the right exi ting neural foramina with out significant foraminal stenosis on the right side. Mild facet arthropat hy.. L3-4: There is advanced disc space height loss. This is more prominent on the right than the left si de. Modic type 1 edema changes on both sides of this disc space. There is mild degenerative anterol isthesis of L3 upon L4. Annular bulging and posterior osteophytic ridging results in moderate-severe central spinal canal stenosis. There is also short AP dimensions the pedicles bilaterally and degen erative facet arthropathy bilaterally. There is significant left-sided foraminal stenosis. Signific ant right-sided foraminal stenosis. L4-5: Advanced disc height loss both sides of this disc space. Modic type 2 sub endplate fatty marro w changes. There is mild central canal stenosis due to annular bulging. There is no significant for aminal stenosis at this level despite significant disc height loss. There are mild degenerative face t joint changes. L5-S1: This level also exhibits advanced disc height loss. Also mild mild degenerative anterolisthes is of L5 upon S1 due to facet arthropathy. There are no pars defects. No distinct focal disc hernia tion. Mild central canal stenosis. Only mild bilateral foraminal stenosis. Moderate facet arthropa thy. IMPRESSION: 1. Multilevel chronic advanced degenerative disc disease and mild scoliosis convex right. 2. No prominent focal disc herniation but there is multilevel canal stenosis which is most prominent at the L3-4 level as described above and there also Modic type 1 sub endplate marrow edema changes at this level evident. 3. There is asymmetric foraminal stenosis at multiple levels as described individually above. 4. Also mild degenerative anterolisthesis L5 upon S1 mild central and bilateral foraminal stenosis n oted at this level. 5. There are bilateral Tarlov intra sacral cyst noted at the S3 level. The thecal sac ends distally at the S2-S3 level. DATA REPOSITORY:
--- NOTE | 2020-08-29 17:20 | DI.VRAD_ITS ---
PROCEDURE INFORMATION: Exam: MR Lumbar Spine Without Contrast. Exam date and time: 08/29/2020 3:54 PM Age: 79 years old Clinical indication: Pain; Other: Lt weakness TECHNIQUE: Imaging protocol: Multiplanar magnetic resonance images of the lumbar spine without contrast. COMPARISON: CR XR LUMBAR SPINE AP, LAT 08/14/2020 11:34 AM FINDINGS: Vertebrae: Unremarkable. Spinal cord: The spinal cord terminates at the L1 level. Discs/Spinal canal/Neural foramina: At the L1-L2 level there is mild broad-based disc bulge with mild bilateral foraminal narrowing. No stenosis. There is mild broad-based disc bulge at the L2-L3 level with early hypertrophy of the ligamentum flavum left worse than right. There is early central stenosis with fairly severe bilateral foraminal narrowing, left worse than right. There are early Modic changes. There is severe stenosis L3-L4 secondary to hypertrophic spurring, ligamentous hypertrophy of the ligamentum flavum left worse than right with associated bilateral foraminal narrowing, left worse than right. At the L4-L5 level there is disc bulge without significant stenosis. Modic changes are associated. There is mild bilateral foraminal narrowing. At the L5-S1 level there is broad-based disc bulge with bilateral foraminal narrowing, severe. Soft tissues: Unremarkable. Kidneys and ureters: There is a large right renal cyst with a ptotic right kidney. There is no left kidney appreciated. IMPRESSION: 1. Multilevel spondylosis. There is stenosis at the L2-L3 and L3-L4 levels particularly. 2. Solitary right kidney. Dictated and Authenticated by: Josselin Aly MD. Ordering:JUANITO Arguelles MD
== END 2020-08-29 02:16 ==
PROVIDERS: PCP Family Medicine; Visit Provider Student in an Organized Health Care Education/Training Program
DX: M47.816 Spondylosis without myelopathy or radiculopathy, lumbar region (principal); M43.17 Spondylolisthesis, lumbosacral region; M48.07 Spinal stenosis, lumbosacral region; M41.86 Other forms of scoliosis, lumbar region; N28.1 Cyst of kidney, acquired; R60.0 Localized edema; R53.1 Weakness; R20.0 Anesthesia of skin
CPT/HCPCS: 72148

== ENCOUNTER → 2020-10-16 09:25 | Outpatient (BNVA) | payer MEDICARE, SELFPAY | PROVIDERS: PCP Family Medicine; Visit Provider Student in an Organized Health Care Education/Training Program | DX: R29.898 Other symptoms and signs involving the musculoskeletal system (principal); M48.061 Spinal stenosis, lumbar region without neurogenic claudication; M25.561 Pain in right knee | CPT/HCPCS: 99214 ==

== ENCOUNTER 2021-02-06 01:56 | Outpatient (CLI) | payer MEDICARE, SELFPAY ==
[2021-02-06 11:39] LABS: Anion Gap 9.7 mmol/L (3-11); BUN 18 mg/dL (7-18); CO2 28.3 mmol/L (21.0-32.0); CREATININE 1.1 mg/dL (0.55-1.02); Calcium 9.4 mg/dL (8.5-10.1); Chloride 101 mmol/L (98-107); Estimated GFR 48.04 (mL/min/1.73m2); Glucose 95 mg/dL (74-106); Potassium 3.8 mmol/L (3.5-5.1); Sodium 139 mmol/L (136-145)
== END 2021-02-06 01:57 | disposition home or self-care (01) ==
LOC: LBO 01:56
PROVIDERS: PCP Family Medicine; Visit Provider Family Medicine
DX: N18.9 Chronic kidney disease, unspecified (principal)
CPT/HCPCS: 36415; 80048

== ENCOUNTER → 2021-05-04 10:43 | Outpatient (BNVA) | payer MEDICARE, SELFPAY | PROVIDERS: PCP Family Medicine; Referring Provider Family Medicine; Visit Provider Student in an Organized Health Care Education/Training Program | DX: M65.311 Trigger thumb, right thumb (principal) | CPT/HCPCS: 20550; 99213; J1030 ==

== ENCOUNTER → 2022-01-11 00:37 | Outpatient (CLI) | payer MEDICARE, SELFPAY ==
--- OUTSIDE RECORDS SUMMARY | 2022-01-11 00:44 | XMS_ITS | Encounter Summary ---
:1940 Author Organization [facility] [address] Care Team Providers Name Role Phone Richie Mendez DO Primary Care Provider Reason for Visit Consultation (Urgent) - Closed Specialty Diagnoses / Procedures Referred By Contact Refer red To Contact Urology Diagnoses SYMPTOMATIC, HYDRONEPHROTIC L KIDNEY, RENAL FUNCTION LESS THAN 10% Bryn Moralez MD [facility] [address] [place], [place] [id number] [place] [phone] Fax: Referral ID Status Reason Start Date Expiration Date Visits V isits Requested Authorized [id number] Closed Consult, 03/04/2018 03/04/2019 1 1 [facility] Encounter Details Date Type Department Care Team Description 03/27/2018 Office Visit Urology at [facility] Romi Velazquez, Hydronephrosis, left; [facility] Atrophic kidney, acquired; Drive [facility] Renal cyst, [place] [address] [place] [address] Social History Tobacco Use Types Packs/Day Years Used Date Smoking Tobacco: Never Sex Assigned at Date Recorded Not on file documented as of this encounter Last Filed Vital Signs Vital Sign Reading Time Taken Comments Blood Pressure 150/68 03/27/2018 2:04 PM EST Pulse 76 03/27/2018 2:04 PM EST Temperature 36.4 ??C (97.6 ??F) 03/27/2018 2:04 PM EST Respiratory Rate - - Oxygen Saturation - - Inhaled Oxygen Concentration - - Weight - - Height - - Body Mass Index - - documented in this encounter Progress Notes Romi Velazquez MD - 03/27/2018 2:20 PM EST UROLOGY CONSULTATION I have been asked to see the patient by Bryn Moralez MD for evaluation and recommendations of left hydroureteronephrosis / atrophic kidney. CHIEF COMPLAINT: Left lower quadrant pain HISTORY OF PRESENT ILLNESS Paz Phillips is a 77 y.o. female with a long standing history of recurrent urolithiasis presenting with her for discussion of left hydroureteronephrosis. Her pertinent urologic history is as follows. 2002: She recalls undergoing SWL in [place] which failed to fully fragment the stone; she then underwent ureteroscopy (reportedly complex/difficult) as well as repeat SWL; she is unsure if she ever cleared all of the stone fragments. By report, a KUB was obtained in 2006 which did not show definote stone. 2009: She was seen in [place] with 3-4 months of moderate LLQ pain radiating towards her psilterallabia as well as suspected bladder spasms and was found to have obstruction of the left ureter on CTimaging. She underwent attempt at URS by Dr. Black at [facility]. She was found to have left hydroureteronephrosis with thinned renal parenchyma of an atrophic left kidney. Ureteroscopy was performed but nolumen could be initially identified at/ above the stone. A wire could not be manpulated beyond the stone. A repeat urs was performed approx 1 week later; ureteral access above the stone still could notbe obtained, but as planned the stone was fragmented in situ. She was referred to Dr. Hdz for a second opinion in 2009. At that point a discussion was had regarding options including observation, repeat attempt at URS, vs. Nephrectomy (open vs. Lap) and risks and benefits. She elected to observe. 09/06/09: MAG 3 right function 88% and left 15% - underwent right URS and dense stricture 02/2018: She remained asymptomatic for almost 10 years without renal colic, then approximately 3 weeks ago she another attack in the evening - seen in the ED, 10/27, LLQ pain. This was associated withnausea and chills, but she denied fever, gross hematuria, dysuria, vomiting, or diarrhea. Her pain improved with IV and po pain meds. A CT revealed significant left hydroureteronephrosis and a distal 5mm stone unchanged in position from 2010 CT. She was taken to OR by Dr. Moralez for attempt a retrograde and URS. A retrograde revealed a blind ending ureter with a tapered ending approximately 5cm from the ureterovesical junction and a glidewire was unable to be advanced beyond the defect. Dr. Moralez offered observation vs. Hand assisted lap nephrectomy. She presents to discuss potential additional management options. Today she reports her LLQ pain is nearly gone. Occasionally this will be a 1- 04/26, resolves with tylenol. She is currently rehabing from a left gluteal tear that she elected to manage conservatively, this is more painful for her at current. She believes she makes calcium oxalate stones. She has never had an associated UTI and has not passed a stone fragment since 2009. She is extremely active with her 12 grand children and frequently hikes with them (how she tore her gluteus). 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 Codeine Phosphate CIS - very sleepy HOME MEDICATIONS None REVIEW OF SYSTEMS A full 12 point review of systems was performed and notable for the findings listed in the HPI, otherwise negative VITALS Most Recent Vitals: 03/27/18 1404 BP: 150/68 Pulse: 76 Temp: 36.4 ??C (97.6 ??F) PainSc: 0 - No pain PHYSICAL EXAM GEN: Alert and oriented to person, place and time. NAD CV: Regular rate HEENT: NCAT PULM: Non labored breathing on RA ABD: Soft, non distended, non tender to palpation. : No CVA tenderness. RECTAL: deferred MSK: Left gluteal injury-walks with cane NEURO: grossly normal, no focal deficits, moves all 4 extremities EXT: symmetric UA: Negative for blood, leukocyte esterase, nitrites IMAGING: I personally reviewed the following imaging: CT Abdomen / Pelvis 02/26/18 Severe hydroureteronephrosis to the level of a 5mm left distal ureteral stone, almost no visible left renal parenchyma, unchanged size/position of the 5mm distal stone as compared to 2010 CT (per report), large simple right renal cyst with calcification, stable in size and characteristic since 2010, no right hydroureteronephrosis or stones. ASSESSMENT / PLAN Paz Phillips is a lissette 77 yr old lady presenting with severe left hydroureteronphrosis /atrophic kidney likely due to chronic impacted stone /distal ureteral stricture. She had been asymptomatic for ~9 yrs now with a recent episode of severe LLQ pain requiring ED visit. Today she is nearly asymptomatic. Fortunately she has not had associated infections. She also has a stable asymptomatic right renal cyst for which she would like to observe. I had a long discussion with and Mrs. Phillips regarding the suspected ureteral stricture/distalstone in the setting of an atrophic left kidney. We discussed management options including watchful waiting (which would be reasonable in the absence of recurrent suspected colic episodes or febrile UTI s), repeat attempted endourologic procedures - though I have relayed the likely futility given both Dr. Ponce and Dr. Moralez's experiences, and nephrectomy-open vs. Lap (hand assist, straight lap, vs. Robotic assist lap). We discussed the limitation of each, as well as possible scenarios. With regard to nephrectomy we discussed the nature of the procedure and recovery with lap procedures typically having shorter recovery. I have relayed that in my hands all laparoscopic options would have similar recovery times. We discussed risks including bleeding requiring transfusion, infection, damage to surrounding structures including bowel, pancreas, spleen, repeat procedures, and the cardiopulmonary risksof a general anesthetic. With an understanding she would like to think about her options. I have relayed that she would no doubt receive excellent care from Dr. Moralez, but that we would be happy to take care of her at [facility] should she elect. I have given her my contact information and have asked her to call should she decide to proceed witha surgical intervention. I have extensively counseled her on reasons to call or return including recurrent severe colic symptoms/febrile UTI, questions or concerns. Thank you for allowing me to participate in this patient's care. Please do not hesitate to contact me with further questions. 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
--- OUTSIDE RECORDS SUMMARY | 2022-01-11 00:44 | XMS_ITS | Encounter Summary ---
:1940 Author Organization [facility] [place] [address] Care Team Providers Name Role Phone Richie Mendez Primary Care Provider Encounter Details Date Type Department Care Team Description 09/10/2018 Office Visit [place] [facility] Romi Velazquez MD Follow up [facility] [place] [address] [place] [address] [phone] (Wo rk) Social History Tobacco Use Types Packs/Day Years Used Date Smoking Tobacco: Never Smokeless Tobacco: Never Alcohol Use Standard Drinks/Week Comments Yes 3 (1 standard drink = 0.6 oz pure alcoho l) 2 wine a week. Sex Assigned at Date Recorded Not on file documented as of this encounter Last Filed Vital Signs Vital Sign Reading Time Taken Comments Blood Pressure 129/76 09/10/2018 1:01 PM EDT Pulse 85 09/10/2018 12:59 PM EDT Temperature - - Respiratory Rate - - Oxygen Saturation - - Inhaled Oxygen Concentration - - Weight - - Height - - Body Mass Index - - documented in this encounter Progress Notes Romi Velazquez MD - 09/10/2018 1:00 PM EDT UROLOGY OUTPATIENT FOLLOW UP CHIEF COMPLAINT: Follow up surgery HISTORY OF PRESENT ILLNESS Paz Phillips is a 77 y.o. female with a long standing history of recurrent urolithiasis presenting with her for discussion of left hydroureteronephrosis. Her pertinent urologic history is as follows. 2002: She recalls undergoing SWL in [place] which failed to fully fragment the stone; she then underwent ureteroscopy (reportedly complex/difficult) as well as repeat SWL; she is unsure if she ever cleared all of the stone fragments. By report, a KUB was obtained in 2006 which did not show definote stone. 2009: She was seen in [place] with 3-4 months of moderate LLQ pain radiating towards her psilterallabia as well as suspected bladder spasms and was found to have obstruction of the left ureter on CTimaging. She underwent attempt at URS by Dr. Black at [facility]. She was found to have left [...] in the ED, 10/27, LLQ pain. This w as associated with nausea and chills, but she denied fever, gross [...] ureter with a tapered ending approximately 5cm fromthe ureterovesical junction and a glidewire was unable to be advanced beyond the defect. Dr. Moralez offered observation vs. Hand assisted lap nephrectomy. 03/27/18: seen by me at [facility]. At that time she reports her LLQ pain is nearly gone. Occasionally this will be a 1-3/10, resolves with tylenol. She is currently rehabing [...] and frequently hikes with them (how she toreher gluteus). We discussed management options including obs, lap/robotic/open nephrectomy and she elected to observe. 07/16/18: Presented to OSH again with severe LLQ pain, this time radiated to the flank. 10/10 at worst. Came on after using the weed eater in the garden. Was seen at OSH ED, pain subsequently resolved with po pain meds. Work up neg for infection, CT with stable left hydro/atrophic kidney. Discussion was had and she elected to proceed with laparoscopic left radical nephrectomy. 08/21/18: She underwent LEFT laparoscopic hand assisted radical nephrectomy Findings: -Dilated left atrophic kidney -Single left artery and vein -Antegrade ureteroscopy with calcified debris cleared out, completely obliterated distal ureter without mobile stone identified Pathology Left kidney (nephrectomy): 1. Hydronephrosis. 2. Renocortical atrophy and chronic pyelonephritis. 3. No evidence of malignancy. Discharged on POD # 1 without issue 09/10/18: She returns for follow up. She is doing well . Had some burning across the lower abdomen, this has improved. Voiding without difficulty. Her acid reflex has completely resolved. Today her pain is controlled without medications. She denies fevers, chills, nausea, gross hematuria, or dysuria. She is now interested in nephrectomy. 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 Codeine Phosphate CIS - very sleepy ??? Nsaids (Non-Steroidal Anti-Inflammatory Drug) Other (See Comments) Told she shouldn't take d/t kidney stones and left kidney being plugged HOME MEDICATIONS None REVIEW OF SYSTEMS A full 12 point review of systems was performed and notable for the findings listed in the HPI, otherwise negative VITALS Most Recent Vitals: 09/10/18 1301 BP: 129/76 Pulse: PHYSICAL EXAM GEN: Alert and oriented to person, place and time. NAD CV: Regular rate HEENT: NCAT PULM: Non labored breathing on RA ABD: Soft, non distended, appropriately tender to palpation, well healing incisions : No CVA tenderness. RECTAL: deferred MSK: Left gluteal injury-walks with cane NEURO: grossly normal, no focal deficits, moves all 4 extremities EXT: symmetric UA : 03/27/18: Negative for blood, leukocyte esterase, nitrites IMAGING: [...] 2010, no right hydroureteronephrosis or stones. ASSESSMENT 1. Left chronic hydroureteronphrosis /atrophic kidney likely due to chronic impacted stone /distal ureteral stricture now s/p HALap Nx She also has a stable asymptomatic right renal cyst Recovered well from surgery. PLAN -RTC 3mo In the interim have extensively counseled her on reasons to call or return including recurrent severe colic symptoms/febrile UTI, questions or concerns. Romi Velazquez MD documented in this encounter Plan of Treatment Not on filedocumented as of this encounter Visit Diagnoses Diagnosis Follow up documented in this encounter Care Teams Life Sciences Manager Relationship Specialty Start Date End Date Richie Mendez DO PCP - General Family Medicine 03/27/[address] [place] [address] [place] [address] documented as of this encounter
--- OUTSIDE RECORDS SUMMARY | 2022-01-11 00:44 | XMS_ITS | Encounter Summary ---
:1940 [address] [facility] [place] [address] Care Team Providers Name Role Phone Richie Tripathi MD Primary Care Provider [phone] Reason for Visit Reason Comments Skin Check Encounter Details Date Type Department Care Team Description 10/31/2015 Office Visit Dermatology at [facility], Brachio radial pruritus [facility] [address] [place], [place] D[place]MATOLOGY [address] [place], [place] [phone] [id number] Social History Tobacco Use Types Packs/Day Years Used Date Smoking Tobacco: Never Sex Assigned at Date Recorded Not on file documented as of this encounter Progress Notes Kunal Ontiveros MD - 10/31/2015 3:15 PM EDT PROBLEM: Itchy rash. Paz is a 74-year-old woman who comes today with her , Shen. She states that, for at least 2 months since August, she has had an itchy rash on the bilateral arms, but really nowhere else. It is only on the dorsal arms and forearms. Her has had no issues. She is on no medications but is undergoing workup for possible ankylosing spondylitis of her back. The patient is seen in consultation today for Юлия Arreaga MD PHYSICAL EXAMINATION: A pleasant 74-year-old woman who has erythematous excoriated papules present on just the dorsal arms and forearms in a few sparse areas. These stop at the short-sleeve curtis and extend down to just before the dorsal hand. They do not extend onto the volar forearm. She has a couple of irritated seborrheic keratoses on her left upper back, but otherwise she has no lesion on the chest, back, on the face or her legs. She has a mild jacobs on her arms. ASSESSMENT AND PLAN: Brachioradial pruritus. A. Likely related to mild nerve root irritation at exits in the vertebral column, related to her spinal arthritis. B. This, combined with sun exposure, tends to bring out this itching. C. I suspect that the erythematous papules are really secondary due to her scratching now for 2 months on her arms. D. Recommend that she wear long sleeves and/or sunscreen and try to avoid sun. E. Recommend Sarna lotion for symptomatic relief of itching. She has tried Gold Schneider and it would help a little bit, but then the itching would come back. F. Reassured patient about this and explained that, with sun avoidance and symptomatic therapy, it should improve. Must be diligent in avoiding sun indoors and outdoors. Return to clinic here p.r.n. CC: Юлия Arreaga M.D. documented in this encounter Plan of Treatment Not on filedocumented as of this encounter Visit Diagnoses Diagnosis Brachioradial pruritus documented in this encounter Care Teams Vending Machine Technician Relationship Specialty Start Date End Date Richie Tripathi MD PCP - General 01/09/10 03/03/[address] [place] [address] documented as of this encounter
--- OUTSIDE RECORDS SUMMARY | 2022-01-11 00:44 | XMS_ITS | Encounter Summary ---
:1940 Author Organization [facility] [place] [address] Care Team Providers Name Role Phone Vanessa Richie Das DO Primary Care Provider Encounter Details Date Type Department Care Team Description 01/11/2019 Telephone Urology at [facility] Romi Velazquez MD [facility] [place] [address] [place] [address] [phone] (Wo rk) Social History Tobacco Use Types Packs/Day Years Used Date Smoking Tobacco: Never Smokeless Tobacco: Never Alcohol Use Standard Drinks/Week Comments Yes 3 (1 standard drink = 0.6 oz pure alcoho l) 2 wine a week. Sex Assigned at Date Recorded Not on file documented as of this encounter Miscellaneous Notes Telephone Encounter - Kirt Suero - 01/11/2019 1:48 PM EST PHONE: [phone] When she was seen on 12/10/18, she told Dr. Velazquez she had pain around the belly button on the left side. Now, everyday it hurts. She wants to hear from Dr. Velazquez that all is well or that she needs to see to come back and be seen or if she should see someone local. She is not sure if this is normal. She says she can wait till Friday when Dr. Velazquez returns. documented in this encounter Plan of Treatment Not on filedocumented as of this encounter Visit Diagnoses Not on filedocumented in this encounter Care Teams Interior Assemblies Developer Prover Relationship Specialty Start Date End Date Richie Mendez DO PCP - General Family Medicine 03/27/[address] [place] [address] documented as of this encounter
--- OUTSIDE RECORDS SUMMARY | 2022-01-11 00:44 | XMS_ITS | Encounter Summary ---
:1940 Author Organization [facility] Address [facility] [place] [address] Care Team Providers Name Role Phone Richie Mendez Primary Care Provider Encounter Details Date Type Department Care Team Description 08/13/2018 Clinical Support [place] [facility] At[place] kidney; [facility] Abnormal finding [place] [address] Social History Tobacco Use Types Packs/Day Years Used Date Smoking Tobacco: Never Smokeless Tobacco: Never Alcohol Use Standard Drinks/Week Comments Yes 0 (1 standard drink = 0.6 oz pure alcoho l) Sex Assigned at Date Recorded Not on file documented as of this encounter Last Filed Vital Signs Vital Sign Reading Time Taken Comments Blood Pressure - - Pulse 83 08/13/2018 9:41 AM EDT Temperature - - Respiratory Rate - - Oxygen Saturation 99% 08/13/2018 9:41 AM EDT Inhaled Oxygen Concentration - - Weight 61.2 kg (135 lb) 08/13/2018 9:41 AM EDT Height 152.4 cm (5') 08/13/2018 9:41 AM EDT Body Mass Index 26.37 08/13/2018 9:41 AM EDT documented in this encounter Progress Notes Alee Cifuentes RN - 08/13/2018 10:00 AM EDT PAT questionnaire reviewed with patient and no while in Pre Admission testing. Pt has had anesthesia in the past. Pre-operative instruction booklet reviewed. Patient verbalizes a good understanding of all information reviewed. Pt given hibiclens soap, has instructions for use. PLAN: Testing: Type and screen, other labs Special medication instructions: Procedure date: 08-21-18 Dr Velazquez documented in this encounter Plan of Treatment Not on filedocumented as of this encounter Procedures Procedure Name Priority Date/Time Associated Diagnosis Comme nts URINE CULTURE Routine 08/13/2018 10:40 AM Abnormal finding in Results for this EDT urine procedure are in Atrophic kidney the results section. ABORH RECHECK Routine 08/13/2018 10:37 AM Results for this STATUS EDT procedure are i n the results section. HEMOGRAM Routine 08/13/2018 10:37 AM Atrophic kidney Resul ts for this EDT procedure are i n the results section. DIFFERENTIAL, Routine 08/13/2018 10:37 AM Atrophic kidney Resu lts for this AUTOMATED EDT procedure are i n the results section. ABO/RH TYPING Routine 08/13/2018 10:37 AM Atrophic kidney Resu lts for this EDT procedure are i n the results section. CBC (WITH DIFF) Routine 08/13/2018 10:37 AM Atrophic kidney EDT ANTIBODY SCREEN Routine 08/13/2018 10:37 AM Atrophic kidney Re sults for this EDT procedure are i n the results section. TYPE AND SCREEN Routine 08/13/2018 10:37 AM Atrophic kidney ([facility]) EDT BASIC METABOLIC STAT 08/13/2018 10:37 AM Atrophic kidney Re sults for this PANEL (NON-FASTING) EDT procedur e are in the results section. documented in this encounter Results (ABNORMAL) Urine culture Clean Catch Urine (08/13/2018 10:40 AM EDT) [facility] Method Time Signature Urine Culture 1,000-9,000 MIRYAM cfu/ml [facility] probable LABORATORY contaminant (A) Specimen (Source) Anatomical Collection Method Collection Time Re ceived Time Location / / Volume Laterality Urine specimen 08/13/2018 10:40 9 obtained by clean AM EDT 11:10 AM E DT catch procedure (specimen) Resulting Agency Comment Spec In Lab Romi Velazquez MD MICROBIOLOGY - GENERAL ORDER KAITLIN Performing Organization Address City/State/[place] [address] ABORH Recheck Status (08/13/2018 10:37 AM EDT) [facility] Method Time Signature ABORH Recheck Order Placed [facility] Order [facility] ABORH Type Complete [facility] LABORATORY Specimen Anatomical Collection Method Collection Time Receive d Time (Source) Location / / Volume Laterality Blood specimen 08/13/2018 10:37 9 (specimen) AM EDT 10:49 AM EDT Resulting Agency Comment Spec In Lab Romi Velazquez MD BLOOD BANK ORDERABLES Performing Organization Address City/State/ZIP Code Phon e Number [address] Antibody screen (08/13/2018 10:37 AM EDT) [facility] Method Time Signature Ab Screen Negative [facility] LABORATORY Expires at 08/24/2018 [facility] [id number] on: [facility] Specimen Anatomical Collection Method Collection Time Receive d Time (Source) Location / / Volume Laterality Blood specimen 08/13/2018 10:37 9 (specimen) AM EDT 10:49 AM EDT Resulting Agency Comment Spec In Lab Romi Velazquez MD BLOOD BANK ORDERABLES Performing Organization Address City/State/ZIP Code Phon e Number [address] ABO/Rh Typing (08/13/2018 10:37 AM EDT) P athologist Signature ABORh Type A Pos [facility] LABORATORY Specimen Anatomical Collection Method Collection Time Receive d Time (Source) Location / / Volume Laterality Blood specimen 08/13/2018 10:37 9 (specimen) AM EDT 10:49 AM EDT Resulting Agency Comment Spec In Lab Romi Velazquez MD BLOOD BANK ORDERABLES Performing Organization Address City/[facility]/ZIP Code Phon e Number [address] Differential, Automated (08/13/2018 10:37 AM EDT) P athologist Signature Neutrophils % 64.4 % [facility] LABORATORY Neutr Abs (ANC) 3.67 1.70 - [facility] 6.10 [facility] x10(3)/[facility] LABORATORY Lymphocytes % 25.8 % [facility] LABORATORY Lymphocytes Abs 1.5 0.9 - 3.2 [facility] x10(3)/[facility] LABORATORY Monocytes % 6.8 % [facility] LABORATORY Monocyte Abs 0.4 0.3 - 0.9 [facility] x10(3)/[facility] LABORATORY Eosinophils % 2.1 % [facility] LABORATORY Eosinophils Abs 0.1 0.0 - 0.4 [facility] x10(3)/[facility] LABORATORY Basophils % 0.5 % [facility] LABORATORY Basophils Abs 0.0 0.0 - 0.1 [facility] x10(3)/[facility] LABORATORY Immature Gran % 0.40 % [facility] LABORATORY Comment: Immature granulocytes(IG's)percentage an d absolute count will include metamyelocytes, myelocytes, and promyelo cytes. Blood smears from CBCs yielding IG's will be scanned manually for concor dance. If this scan disagrees with the automated IG or if promyelocytes are not ed, a manual differential will be performed. Deann Gran Abs 0.02 0.00 - 0.04 x10(3)/[facility] Y [facility] LABORATORY Specimen Anatomical Collection Method Collection Time Receive d Time (Source) Location / / Volume Laterality Blood specimen 08/13/2018 10:37 9 (specimen) AM EDT 10:47 AM EDT Resulting Agency Comment Spec In Lab Romi Velazquez MD HEMATOLOGY ORDERABLES Performing Organization Address City/State/[place] [address] (ABNORMAL) Hemogram (08/13/2018 10:37 AM EDT) Analysis Performed At Patho logist Time Signature WBC 5.7 4.0 - 9.5 [facility] x10(3)/[facility] LABORATORY RBC 4.96 4.00 - [facility] 5.21 [facility] x10(6)/[facility] LABORATORY Hemoglobin 14.3 11.7 - [facility] 15.5 gm/dL [facility] Hematocrit 46.1 (H) 35.7 - MIRYAM VARELA 45.8 % [facility] MCV 92.9 82.6 [facility] LAB[facility]AT[facility] MCH 28.8 27.1 - MIRYAM MERCEDESCK 32.0 pg [facility] MCHC 31.0 (L) 31.7 - MIRYAM GORDONNICHOLE 35.0 gm/dL [facility] Platelets 208 145 - 357 [facility] x10(3)/[facility] LABORATORY RDWSD 48.9 (H) 37.0 - MIRYAM NICHOLE 46.0 [facility] LABORATORY RDWCV 14.2 (H) 11.5 - [facility] 14.1 % [facility] MPV 11.2 7.6 - 12.9 [facility] LABORATORY nRBC % Auto 0.0 % [facility] LABORATORY nRBC Abs Auto 0.000 0.000 - [facility] 0.000 [facility] x10(3)/[facility] LABORATORY Specimen Anatomical Collection Method Collection Time Receive d Time (Source) Location / / Volume Laterality Blood specimen 08/13/2018 10:37 9 (specimen) AM EDT 10:47 AM EDT Resulting Agency Comment Spec In Lab Romi Velazquez MD HEMATOLOGY ORDERABLES Performing Organization Address City/State/ZIP Code Phon e Number [place] [id number] (ABNORMAL) Basic Metabolic Panel (non-fasting) (08/13/2018 10:37 AM EDT) P athologist Signature Glucose Lvl 98 65 - 199 [facility] mg/dL [facility] Comment: Diabetes: >=200 mg/dL plus symp toms BUN 14 8 - 18 mg/dL [facility] LABOR[facility]ORY Creatinine 1.06 0.70 - 1.20 mg/dL [facility] LABORATORY Sodium 143 135 - 145 mmol/L [facility] Potassium 5.1 (H) 3.5 - 5.0 mmol/L [facility] Comment: Please note: ??Patients with WBC >100,00 0 may have falsely elevated Potassium levels. ??For accurate Potassium quantif ication in these patients send serum separator tube (gold top) for subsequent determinations. ??Contact the Clinical Chemistry Laboratory if there are any qu estions. Chloride 105 98 - 107 mmol/L [facility]ORY CO2 28 22 - 31 mmol/L [facility] LABOR[facility] Anion Gap 10 5 - 15 mmol/L [facility] LAB[facility] Calcium 10.2 8.5 - 10.5 mg/dL [facility] Estimated GFR 51 (L) >=60 mL/min/1.73 m?? [facility] Comment: The eGFR was calculated using the CKD-EP I equation. As with all creatinine based estimates of kidney function, eGFR values calculated with the CKD-EPI equation are not accurate in patients wi th acute kidney failure, extremes of body mass or the acutely ill. [email or web address]/[facility] eGFR 59 (L) >=60 mL/min/1.73 m?? [facility] Comment: The eGFR was calculated using the CKD-EP I equation. As with all creatinine based estimates of kidney function, eGFR values calculated with the CKD-EPI equation are not accurate in patients wi th acute kidney failure, extremes of body mass or the acutely ill. [email or web address] Specimen Anatomical Collection Method Collection Time Receive d Time (Source) Location / / Volume Laterality Blood specimen 08/13/2018 10:37 9 (specimen) AM EDT 10:47 AM EDT Resulting Agency Comment Spec In Lab Romi Velazquez MD CHEMISTRY ORDERABLES Performing Organization Address City/State/[place] [address] documented in this encounter Visit Diagnoses Diagnosis Atrophic kidney Renal sclerosis, unspecified Abnormal finding in urine Other nonspecific finding on examination of urine documented in this encounter Care Teams Linotype Machinist Relationship Specialty Start Date End Date Richie Mendez DO PCP - General Family Medicine 03/27/18 [address] [place] [address] documented as of this encounter
--- OUTSIDE RECORDS SUMMARY | 2022-01-11 00:44 | XMS_ITS | Encounter Summary ---
:1940 Author Organization [place] [address] Care Team Providers Name Role Phone Richie Mendez DO Primary Care Provider Encounter Details Date Type Department Care Team Description 08/28/2018 Telephone Urology at [facility] Romi Velazquez MD [facility] [place] [address] [place] [address] [phone] (Wo rk) Social History Tobacco Use Types Packs/Day Years Used Date Smoking Tobacco: Never Smokeless Tobacco: Never Alcohol Use Standard Drinks/Week Comments Yes 3 (1 standard drink = 0.6 oz pure alcoho l) 2 wine a week. Sex Assigned at Date Recorded Not on file documented as of this encounter Miscellaneous Notes Telephone Encounter - Beth Rodriguez - 08/28/2018 12:[address] Velazquez, this pt called asking me to send her op note through the mail. I just wanted to check with you first because it looks like she hasn't had her post op visit yet. I don't know if you'd like o wait until she sees you or can I send it to her now? Let me know. Thanks! documented in this encounter Plan of Treatment Not on filedocumented as of this encounter Visit Diagnoses Not on filedocumented in this encounter Care Teams Certified Hyperbaric Technologist Relationship Specialty Start Date End Date Richie Mendez DO PCP - General Family Medicine 03/27/[address] [place] [address] documented as of this encounter
--- OUTSIDE RECORDS SUMMARY | 2022-01-11 00:44 | XMS_ITS | Encounter Summary ---
:1940 Author Organization [facility] [place] [address] Care Team Providers Name Role Phone Richie Mendez Primary Care Provider Encounter Details Date Type Department Care Team Description 01/14/2020 Hospital [place] [address] Social History Tobacco Use Types Packs/Day Years Used Date Smoking Tobacco: Never Smokeless Tobacco: Never Alcohol Use Standard Drinks/Week Comments Yes 3 (1 standard drink = 0.6 oz pure alcoho l) 2 wine a week. Sex Assigned at Date Recorded Not on file documented as of this encounter Medications at Time of Discharge Medication Sig Dispensed Refills Start Date End Date lidocaine-menthol 4-1 % Apply 1 patch 7 patch 0 9 Adhesive Patch, Medicated topically over 24 hrs. acetaminophen (TYLENOL) Take 1,000 mg by 0 500 mg Tablet mouth every 6 hours as needed for Pain. documented as of this encounter Plan of Treatment Not on filedocumented as of this encounter Procedures Procedure Name Priority Date/Time Associated Diagnosis Comme nts COVID-19 PCR Routine 01/14/2020 9:13 AM Results f or this EST procedure are i n the results section . documented in this encounter Results COVID-19 PCR (01/14/2020 9:13 AM EST) [facility] Method Time Signature SARS-CoV-2 Not Detected Not Detected [facility] Comment: This result should be interpreted in com bination with the clinical observations, patient history and epidem iological information in making a final diagnosis. For testing of asymptomatic i ndividuals, assay performance characteristics and clinical utility hav e not been evaluated. Testing for SARS-CoV-2 (Severe acute respiratory syn drome coronavirus 2, formerly known as 2019 novel coronavirus or 2019-nCoV) to aid in the diagnosis of COVID-19 is performed using the Back RealTime SARS -CoV-2 Assay as authorized by the FDA Emergency Use Authorization (EUA). This EUA assay is intended for In-vitro Diagnostic (IVD) use with respiratory sp ecimens such as nasopharyngeal swabs collected from individuals during the ac campo phase of infection. This assay is performed based on the instructions for use provided by [employer] and additional guidance provided by CDC and FDA. Testing is performed in the [facility] within the Department of Pathology and Laboratory Medicine at [facility], certified under the Clinical Laboratory Improvement Amendments of 1988 (CLIA), 42 U.S.C. 263a, to perform high complexi ty tests. Assay performance has been verified according to clinical laborator y regulatory requirements for use with specimens collected from individuals wilfred pected of COVID-19. Test results are provided above. A result of ? Not Detected? indicates that the viral RNA target is not present above the limit of detect ion, but does not preclude SARS-CoV-2 infection. False negative results may oc cur if a specimen is improperly collected, transported or handled; if am plification inhibitors are present; or if inadequate numbers of viral particles are present in the specimen. When a diagnostic test is negative, the possibi lity of a false negative result should be considered in the context of a patien t? s recent exposures and the presence of clinical signs and symptoms consisten t with COVID-19. A result of ? Detected? indicates that RNA from SARS-CoV-2 was d etected and the patient is infected. As required or requested by public health a uthorities, positive specimens may be sent for additional testing. Positive an d negative predictive values for this test are highly dependent on disease pre valence. A result of ? Invalid? indicates that neither the viral RNA tar gets nor the internal control target was detected. An invalid result suggests the presence of inhibitors. Recollection and re-testing is recommend ed in the case of an invalid result. CDC COVID-19 criteria for testing on hum an specimens and clinical management guidance information are available at e CDC Coronavirus Disease 2019 (COVID-19) webpage under ? Information for Healthcare Professionals? (https://www.cdc.gov/coronavirus/2019-nc ov/hcp/index.html) Additional information about this and ot her EUA tests can be found in provider and patient fact sheets at the following FDA website: https://www.fda.gov/medical-devices/mltpqapitdj-mhfkhru-5757-mqpxj-38-bpgnuhdbb- tsy-ypbgdypigfsiyv-nqvmqzd-devices/swzkb-sinynbgawig-shvb SARS-Cov-2 RNA Source Nasal [facility] Specimen Anatomical Collection Method Collection Time Receive d Time (Source) Location / / Volume Laterality Specimen from Other / Unknown 01/14/2020 9:13 AM 01/13 nose (specimen) EST 11:19 PM EST Resulting Agency Comment Spec In Lab Oanh Mishra MD MICROBIOLOGY - GENERAL ORDER KAITLIN Performing Organization Address City/State/[place] [address] documented in this encounter Visit Diagnoses Not on filedocumented in this encounter Care Teams Deck Cadet Relationship Specialty Start Date End Date Richie Mendez DO PCP - General Family Medicine 03/27/[address] [place] [address] documented as of this encounter
--- OUTSIDE RECORDS SUMMARY | 2022-01-11 00:44 | XMS_ITS | Encounter Summary ---
:1940 Author Organization [facility] [place] [address] Care Team Providers Name Role Phone Richie Mendez DO Primary Care Provider Encounter Details Date Type Department Care Team Description 07/14/2018 Telephone Urology at [facility] Romi Velazquez MD [facility] [place] [address] [place] [id number] [phone] (Wo rk) Social History Tobacco Use Types Packs/Day Years Used Date Smoking Tobacco: Never Sex Assigned at Date Recorded Not on file documented as of this encounter Miscellaneous Notes Telephone Encounter - Beth Rodriguez - 07/14/2018 8:10 AM EDT Patient calling to be seen in the clinic today. She is not feeling better and was seen at [facility] (see telephone note by Dr. Randolph). I paged a resident as is not in clinic today. She can be reached at [phone]. documented in this encounter Plan of Treatment Not on filedocumented as of this encounter Visit Diagnoses Not on filedocumented in this encounter Care Teams Surgery Scheduling Coordinator Relationship Specialty Start Date End Date Richie Mendez DO PCP - General Family Medicine 03/27/18 [address] [place] [address] documented as of this encounter
--- OUTSIDE RECORDS SUMMARY | 2022-01-11 00:44 | XMS_ITS | Encounter Summary ---
:1940 Author Organization [facility] [address] Care Team Providers Name Role Phone Richie Mendez Pippa MAYNARD Primary Care Provider Encounter Details Date Type Department Care Team Description 03/04/2019 Office Visit Urology at [facility] Romi Velazquez MD Surgical followup [facility] [address] [place] [id number] [phone] (Wo rk) Social History Tobacco Use Types Packs/Day Years Used Date Smoking Tobacco: Never Smokeless Tobacco: Never Alcohol Use Standard Drinks/Week Comments Yes 3 (1 standard drink = 0.6 oz pure alcoho l) 2 wine a week. Sex Assigned at Date Recorded Not on file documented as of this encounter Last Filed Vital Signs Vital Sign Reading Time Taken Comments Blood Pressure 155/77 03/04/2019 10:54 AM EST Pulse - - Temperature 36.9 ??C (98.5 ??F) 03/04/2019 10:54 AM EST Respiratory Rate 20 03/04/2019 10:54 AM EST Oxygen Saturation - - Inhaled Oxygen Concentration - - Weight 61.2 kg (135 lb) 03/04/2019 10:54 AM EST Height 152.4 cm (5') 03/04/2019 10:54 AM EST Body Mass Index 26.37 03/04/2019 10:54 AM EST documented in this encounter Progress Notes Romi Velazquez MD - 03/04/2019 10:40 AM EST UROLOGY OUTPATIENT FOLLOW UP CHIEF COMPLAINT: Follow up surgery HISTORY OF PRESENT ILLNESS Paz Phillips is a 78 y.o. female with a long standing history of recurrent urolithiasis presenting with her for discussion of left hydroureteronephrosis. Her pertinent urologic history is as follows. 2002: She recalls undergoing SWL in [place] which failed to fully fragment the stone; she then underwent ureteroscopy (reportedly complex/difficult) as well as repeat SWL; she is unsure if she ever cleared all of the stone fragments. By report, a KUB was obtained in 2006 which did not show definote stone. 2009: She was seen in [place] with 3-4 months of moderate LLQ pain radiating towards her psilterallabia as well as suspected bladder spasms and was found to have obstruction of the left ureter on CTimaging. She underwent attempt at URS by Dr. Black at [facility]. She was found to have left [...] lap nephrectomy. 03/27/18: seen by me at [facility]. At that time she reports her LLQ [...] difficulty. Her acid reflex has completely resolved. 12/10/18: Returns for follow up. No acute issues. She feels she is healing well. Occasional twinges over incision sites, nothing like prior to surgery. No fevers, chills, nausea, or vomiting. 01/29/19: Returns for follow up and notes continued right lower quadrant pain, sharp, comes on when doing dishes, and turning in bed. Different than preop pain. No nausea or vomiting. Moving bowels. Quite bothersome. Activity makes worse, nothing makes better. Work up with OSH CT revealed a fat containing hernia near the incision site- of note she brings withher prior CT scan reports with similar appearing periumbilical hernia. 03/04/19: She presents and relays she has been completely pain free for 3 weeks. She has been intentionally taking it easy. She has no GI symptoms including nausea, vomiting, or diarrhea. 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 NAD CV: Regular rate HEENT: NCAT PULM: Non labored breathing on RA ABD: Soft, non distended, well healing incisions , 2 areas of prior tenderness no longer tender. No palpable masses or obvious hernias : No CVA tenderness. NEURO: grossly normal, no focal deficits, moves all 4 extremities EXT: symmetric UA : 03/27/18: Negative for blood, leukocyte esterase, nitrites 12/10/18: + trace blood 01/29/19: negative IMAGING: I personally reviewed the following imaging: CT Abdomen / Pelvis 02/26/18 Severe hydroureteronephrosis to the level of a 5mm left distal ureteral stone, almost no visible left renal parenchyma, unchanged size/position of the 5mm distal stone as compared to 2010 CT (per report), large simple right renal cyst with calcification, stable in size and characteristic since 2010, no right hydroureteronephrosis or stones. Small periumbilical fat containing hernia 07/11/18: CT Severe hydroureteronephrosis to the level of a 5mm left distal ureteral stone, almost novisible left renal parenchyma, unchanged size/position of the 5mm distal stone as compared to 2010 CT 02/01/19: CT s/p left nephrectomy - fat containing hernia similar in appearance to 02/26/18- no boweldilation. ASSESSMENT 1. Recent history or persistent bro-incisional pain post s/p left HALap Nx. This has now completelyresolved and she is having no worrisome GI symptoms. Reviewed all available prior CT and appears that she has a stable fat containing hernia which is now completely asymptomatic. Discussed observation vs. Proceeding with her scheduled operative exploration. At this point she favors observation and I think that is reasonable. We reviewed worrisome symptoms to return for including pain, nausea, vomiting, etc. All questions answered. PLAN -F/U PRN Romi Velazquez MD documented in this encounter Plan of Treatment Not on filedocumented as of this encounter Visit Diagnoses Diagnosis Surgical followup Follow-up examination, following unspeci fied surgery documented in this encounter Care Teams Layout Artist Relationship Specialty Start Date End Date Richie Mendez DO PCP - General Family Medicine 03/27/[address] [place] [address] [place] [address] documented as of this encounter
--- OUTSIDE RECORDS SUMMARY | 2022-01-11 00:44 | XMS_ITS | Encounter Summary ---
:1940 Author Organization [place] [address] Care Team Providers Name Role Phone Vanessa Richie Das DO Primary Care Provider Encounter Details Date Type Department Care Team Description 07/16/2018 Office Visit Urology at [facility] Romi Velazquez, Atrophic kidney; [facility] Abnormal [place] [address] [place] [address] [phone] Social History Tobacco Use Types Packs/Day Years Used Date Smoking Tobacco: Never Smokeless Tobacco: Never Sex Assigned at Date Recorded Not on file documented as of this encounter Last Filed Vital Signs Vital Sign Reading Time Taken Comments Blood Pressure 151/79 07/16/2018 11:34 AM EDT Pulse 78 07/16/2018 11:34 AM EDT Temperature 36.7 ??C (98.1 ??F) 07/16/2018 11:34 AM EDT Respiratory Rate 18 07/16/2018 11:34 AM EDT Oxygen Saturation 99% 07/16/2018 11:34 AM EDT Inhaled Oxygen Concentration - - Weight 61.7 kg (136 lb) 07/16/2018 11:34 AM EDT Height 152.4 cm (5') 07/16/2018 11:34 AM EDT Body Mass Index 26.56 07/16/2018 11:34 AM EDT documented in this encounter Progress Notes Romi Velazquez MD - 07/16/2018 11:40 AM EDT UROLOGY OUTPATIENT FOLLOW UP CHIEF COMPLAINT: Left lower quadrant / flank pain HISTORY OF PRESENT ILLNESS Paz Phillips is a 77 y.o. female with a long standing history of recurrent urolithiasis presenting with her for discussion of left hydroureteronephrosis. Her pertinent urologic history is as follows. 2002: She recalls undergoing SWL in [place] which failed to fully fragment the stone; she then underwent ureteroscopy (reportedly complex/difficult) as well as repeat SWL; she is unsure if she ever cleared all of the stone fragments. By report, a KUB was obtained in 2006 which did not show definote stone. 2009: She was seen in [place] with 3-4 months of moderate LLQ pain radiating towards her psilterallabia as well as suspected bladder spasms and was found to have obstruction of the left ureter on CTimaging. She underwent attempt at URS by Dr. Black at [facility]. She was found to have left hydroureteronephrosis [...] lap nephrectomy. 03/27/18: seen by me at [facility]. At that time she reports her LLQ [...] infection, CT with stable left hydro/atrophic kidney. Today her pain is controlled without medications. She denies fevers, chills, nausea, gross hematuria, or dysuria. She is now interested in nephrectomy. 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 Codeine Phosphate CIS - very sleepy HOME MEDICATIONS None REVIEW OF SYSTEMS A full 12 point review of systems was performed and notable for the findings listed in the HPI, otherwise negative VITALS Most Recent Vitals: 07/16/18 1134 Pulse: 78 Resp: 18 Temp: 36.7 ??C (98.1 ??F) SpO2: 99% PainSc: 3 PHYSICAL EXAM GEN: Alert and oriented to [...] 2010, no right hydroureteronephrosis or stones. 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 She also has a stable asymptomatic right renal cyst I have re-discussed all management options including obs (not recommended given second colic episoderequiring an ED visit) repeat attempted endourologic procedures - though I have relayed the likely futility given both Dr. Ponce and Dr. Moralez's experiences, and nephrectomy-open vs. Lap (hand assist,straight lap, vs. Robotic assist lap). We discussed [...] to surrounding structures including bowel, pancreas, spleen, persistent or recurrent pain,repeat procedures, and the cardiopulmonary risks of a general anesthetic. With an understanding she would like to proceed with laparoscopic nephrectomy and we will book this at her soonest convenience. PLAN -Book Lap radical nephrectomy -PAT with CBC, BMP, type and screen, urine culture In the interim have extensively counseled her on reasons to call or return including recurrent severe colic symptoms/febrile UTI, questions or concerns. Romi Velazquez MD documented in this encounter Plan of Treatment Not on filedocumented as of this encounter Results (ABNORMAL) Urine culture Clean Catch Urine (08/13/2018 10:40 AM EDT) [facility] Method Time Signature Urine Culture 1,000-9,000 MIRYAM cfu/ml [facility] probable LABORATORY contaminant (A) Specimen (Source) Anatomical Collection Method Collection Time Re ceived Time Location / / Volume Laterality Urine specimen 08/13/2018 10:40 9 obtained by clean AM EDT 11:10 AM E DT catch procedure (specimen) Resulting Agency Comment Spec In Lab Romi Velazquez MD MICROBIOLOGY - GENERAL ORDER KAITLIN Performing Organization Address City/State/[place] [address] (ABNORMAL) Basic Metabolic Panel (non-fasting) (08/13/2018 10:37 AM EDT) athologist Signature Glucose Lvl 98 65 - 199 [facility] mg/dL [facility] Comment: Diabetes: >=200 mg/dL plus symp toms BUN 14 8 - 18 mg/dL [facility] Creatinine 1.06 0.70 - 1.20 mg/dL [facility] Sodium 143 135 - 145 mmol/L [facility] Potassium 5.1 (H) 3.5 - 5.0 mmol/L [facility] Comment: Please note: ??Patients with WBC >100,00 0 may have falsely elevated Potassium levels. ??For accurate Potassium quantif ication in these patients send serum separator tube (gold top) for subsequent determinations. ??Contact the Clinical Chemistry Laboratory if there are any qu estions. Chloride 105 98 - 107 mmol/L [facility] CO2 28 22 - 31 mmol/L [facility] Anion Gap 10 5 - 15 mmol/L [facility] Calcium 10.2 8.5 - 10.5 mg/dL [facility] Estimated GFR 51 (L) >=60 mL/min/1.73 m?? [facility] Comment: The eGFR was calculated using the CKD-EP I equation. As with all creatinine based estimates of kidney function, eGFR values calculated with the CKD-EPI equation are not accurate in patients wi th acute kidney failure, extremes of body mass or the acutely ill. [email or web address] eGFR 59 (L) >=60 mL/min/1.73 m?? [facility] Comment: The eGFR was calculated using the CKD-EP I equation. As with all creatinine based estimates of kidney function, eGFR values calculated with the CKD-EPI equation are not accurate in patients wi th acute kidney failure, extremes of body mass or the acutely ill. [email or web address] Specimen Anatomical Collection Method Collection Time Receive d Time (Source) Location / / Volume Laterality Blood specimen 08/13/2018 10:37 9 (specimen) AM EDT 10:47 AM EDT Resulting Agency Comment Spec In Lab Romi Velazquez MD CHEMISTRY ORDERABLES Performing Organization Address City/State/ZIP [place] [address] documented in this encounter Visit Diagnoses Diagnosis Atrophic kidney Renal sclerosis, unspecified Abnormal finding in urine Other nonspecific finding on examination of urine documented in this encounter Care Teams Environmental Sciences Professor Relationship Specialty Start Date End Date Richie Mendez DO PCP - General Family Medicine 03/27/[address] [place] [address] documented as of this encounter
--- OUTSIDE RECORDS SUMMARY | 2022-01-11 00:44 | XMS_ITS | Encounter Summary ---
:1940 Author Organization [facility] [address] Care Team Providers Name Role Phone Richie Mendez Primary Care Provider Encounter Details Date Type Department Care Team Description 07/11/2018 Telephone Urology at [facility] Jaylen Randolph [place] [phone] UROLOGY [phone] [place], [place] [address] (Wo rk) Social History Tobacco Use Types Packs/Day Years Used Date Smoking Tobacco: Never Sex Assigned at Date Recorded Not on file documented as of this encounter Miscellaneous Notes Telephone Encounter - Jaylen Randolph MD - 07/11/2018 11:21 PM EDT I received a call from the [facility] ED regarding Ms. 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 Moralez / Marcus (on observation as she was previously asymptomatic at least in 03/2018 at her last visit with Dr. Velazquez. She is there with left renal colic. Renal function at baseline. No s/s of infection. I reviewed the two CT scans (02/2018and today) as well as Dr. Velazquez notes. Essentially unchanged severe left hydro, atrophic kidney, multiple left parapelvic cysts without hydro. I recommended pain control, If they can not get her comfortable or if she has any fevers or other signs of infection then to let me know and we can get her a PCN. I reiterated that in my review of her records, she would benefit from a nephrectomy. documented in this encounter Plan of Treatment Not on filedocumented as of this encounter Visit Diagnoses Not on filedocumented in this encounter Care Teams Metal Furniture Assembly Supervisor Relationship Specialty Start Date End Date Richie Mendez DO PCP - General Family Medicine 03/27/18 [address] [place] [address] documented as of this encounter
--- OUTSIDE RECORDS SUMMARY | 2022-01-11 00:44 | XMS_ITS | Encounter Summary ---
:1940 Author Organization [facility] [place] [address] Care Team Providers Name Role Phone Richie Mendez DO Primary Care Provider Encounter Details Date Type Department Care Team Description 02/01/2019 [address] [facility] Romi Velazquez MD [facility] [address] [place] [id number] [phone] (Wo rk) Social History Tobacco Use Types Packs/Day Years Used Date Smoking Tobacco: Never Smokeless Tobacco: Never Alcohol Use Standard Drinks/Week Comments Yes 3 (1 standard drink = 0.6 oz pure alcoho l) 2 wine a week. Sex Assigned at Date Recorded Not on file documented as of this encounter Miscellaneous Notes Telephone Encounter - Aleksandra Briceño - 02/01/2019 4:00 PM EST Pt called to let Dr. Velazquez know that she had the CT in [facility] today. documented in this encounter Plan of Treatment Not on filedocumented as of this encounter Visit Diagnoses Not on filedocumented in this encounter Care Teams Strategic Buyer Relationship Specialty Start Date End Date Richie Mendez DO PCP - General Family Medicine 03/27/18 [address] [place] [address] documented as of this encounter
--- OUTSIDE RECORDS SUMMARY | 2022-01-11 00:44 | XMS_ITS | Encounter Summary ---
:1940 Author Organization [facility] [place] [address] Care Team Providers Name Role Phone Richie Mendez Pippa MAYNARD Primary Care Provider Reason for Visit Auth/Cert Specialty Diagnoses / Procedures Referred By Contact Refer red To Contact Diagnoses Atrophic kidney LEFT ATROPHIC KIDNEY/ PAIN Procedures PRO LAP, RADICAL NEPHRECTOMY @LAPAROSCOPY, RADICAL NEPHRECTOMY (WRVU 25.06) Referral ID Status Reason Start Date Expiration Date Visits Requ ested Visits Authorized [id number] 1 1 Encounter Details Date Type Department Care Team Description 08/21/2018 Anesthesia Event Main Operating Room Mike Sims MD [facility] [address] [facility] Abraham Cooper MD [facility] [place] [address] [place] [address] Anesthesia Record Procedure Summary Procedure Name Responsible Anesthesia Start Anesthesia Stop Anesthesiologist Time Time @LAPAROSCOPY, RADICAL Mike Bangura MD 08/21/18 1310 08/21/181957 NEPHRECTOMY (WRVU 25.06) (Left: Flank) Events Date Time Event Comment 08/21/2018 1112 1310 AN Verify 1310 Start 1310 An Start Data 1320 An Induction 1323 An Intubation 1355 Anesthesia Ready 1441 Procedure Start 1458 Quick Note TOF / 1603 Handoff Intra-procedure anesthesia care was transferred afte r review of the patient's history, current anesthetic/surgical status and plan, accord ing to the ANES Provider Handoff Checklis t. 1654 Break/Relief In Manoj scott, MATERIAL HANDLING EQUIPMENT STEVEDORE 1934 Extubation/LMA Out 1934 an stop data 1957 Recovery or ICU Handoff Patient care was transferred to the destination unit staff after review of the patient's medica l history, current anesthetic/surgi toby status and plan, according to the Provider Handoff Checklist. 1957 Stop Name Total Midazolam 2 mg fentaNYL 200 mcg Propofol 150 mg Rocuronium 80 mg PHENYLephrine 200 mcg ePHEDrine 40 mg Ondansetron 4 mg ceFAZolin 4 g Heparin 5000 units SQ 5,000 Units BUpivacaine 0.5% 30 mL Propofol INF 692.17 mg HYDROmorphone 1.4 mg Esmolol 15 mg Lactated Ringers 1,700 mL Sodium Chloride 0.9% 1,100 mL Agents Name O2 Air N2O Sevoflurane (et) Blood No blood administrations on file. Lines, Drains, and Airways Type Details Placement Removal Urethral Catheter 08/21/18; 1314; Urologic 08/21/18 1314 by 08/05 1143 by surgery; Physician order; Kaitlyn Austin RN Fulton, Marina A, indwelling double lumen CASE MANAGEMENT DIRECTOR catheter; latex, silicone coated; 14; inserted at this facility; 1; 10; 10; none; drainage bag to dependent drainage; inserted by Caro Herrera RN; 08/22/18; 1143 ETT Mask Ventilation: Easy 08/21/18 1328 by 08/21/18 1935 by (1); ETT Type: Cuffed, Abraham Cooper MD Mo ores, Jason C, Oral; ETT Size: 7 mm; Mac MATERIAL HANDLING EQUIPMENT STEVEDORE Blade: 3; Attempts: 2; Laryngoscopy Grade: 2; ETT Placement Verified By: Auscultation, Capnometry, Visual PIV 08/21/18; 1403; 08/21/18 1403 by 08/22/18 1544 b y metacarpal vein (top of Abraham Cooper MD F Rebecca joseph, hand), left; 08/22/18; CASE MANAGEMENT DIRECTOR 1544 Incision 08/21/18; 1443; abdomen; 08/21/18 1443 by 1715 by laparoscopic puncture, Kaitlyn Austin RN Mu ller, Dierdre L vertical; multiple trocar sites to abdomen along with hand port to Left Lower Abdomen ; 10/15/21 (LDA cleanup utility RA#[id number]); 1715 (LDA cleanup utility RA#[id number]) documented in this encounter Social History Tobacco Use Types Packs/Day Years Used Date Smoking Tobacco: Never Smokeless Tobacco: Never Alcohol Use Standard Drinks/Week Comments Yes 3 (1 standard drink = 0.6 oz pure alcoho l) 2 wine a week. Sex Assigned at Date Recorded Not on file documented as of this encounter OR Notes Anesthesia Postprocedure Evaluation - Mike Bangura MD - 08/21/2018 8:44 PM EDT Department of Anesthesiology Post-procedure Note Patient: Paz Phillips Procedure Summary Date: 08/21/18 [facility] / [facility] Anesthesia Start: 1309 Anesthesia Stop: 1957 Procedure: @LAPAROSCOPY, RADICAL NEPHRECTOMY (WRVU 25.06) (Left Flank) Diagnosis: (LEFT ATROPHIC KIDNEY/ PAIN) Surgeon: Romi Velazquez MD Responsible Provider: Mike Bangura MD Anesthesia Type: general ASA Status: 3 All Anesthesia Providers: Anesthesiologist: Mike Bangura MD; Norm Frances MD MATERIAL HANDLING EQUIPMENT STEVEDORE: Bernardo Araujo CRNA Traveling Freight Agent: Abraham Cooper MD Vitals Value Taken Time BP 126/67 08/21/2018 8:30 PM Temp Pulse 103 08/21/2018 8:43 PM Resp 12 08/21/2018 8:43 PM SpO2 97 % 08/21/2018 8:43 PM Pain Level Vitals shown include unvalidated device data. Patient Location: PACU/[facility] Level of Consciousness: Awake and Alert Pain Management: Satisfactory Analgesia PONV: None Cardiovascular Status: At Baseline Respiratory Status: At Baseline Postoperative Fluid Status: Intravascular EUvolemia Possible Anesthetic Complications: NONE apparent at time of evaluation Final Primary Anesthesia Type: General (The anesthetic type performed was the same as planned.) Comments: Anesthesia Procedure Notes - Beth Michael MD - 08/21/2018 2:53 PM EDT Associated Order(s): Anesthesia Block Anesthesia Block Date/Time: 08/21/2018 2:33 PM Performed by: Beth Michael MD Authorized by: Carola Lam MD Start Time: 08/21/2018 2:30 PM End Time: 08/21/2018 2:35 PM Patient Location: Main OR The patient was greeted; the risks and benefits of the procedure were reviewed. Indication: Post-op Pain Control Post-op pain management at the request of surgeon. Block Type: TAP Laterality: Left Position: Right lateral decubitus Prep: Chlorhexidine, patient draped and mask, cap, sterile gloves, hand hygeine [id number]-[id number] 21 10 cm Ultrasound Guided: YES and in-plane. Ultrasound Image(s) were saved. Ultrasound guidance was used to identify the targeted neuronal structure. Ultrasound was also used to identify needle position and to identify tissue (bone, muscle, and blood vessels) to prevent inadvertent intraneural or intravascular needle placement and injection. The spread of local anesthetic was confirmed with live ultrasound imaging. Single-Shot: Single-shot BUpivacaine 0.5%, 30 mL Resident/MATERIAL HANDLING EQUIPMENT STEVEDORE:: Beth Michael MD Fellow:: Yousif Jose MD Attending Physician:: Carola Lam MD Anesthesia Preprocedure Evaluation - Norm Frances MD - 08/20/2018 10:05 AM EDT Pre-Anesthesia Evaluation for: Paz Phillips a 77 y.o. female. Procedure(s): @LAPAROSCOPY, RADICAL NEPHRECTOMY (WRVU 25.06) Patient Active Problem List Diagnosis ??? Atrophic kidney ??? Hydronephrosis, left ??? Atrophic kidney, acquired ??? Renal cyst, right ??? Brachioradial pruritus Past Medical History: Diagnosis Date ??? Chronic pain left lat upper abdomen ??? Gastroesophageal reflux may use one TUMS every other day ??? Kidney failure ??? Motion sickness can't do boats, can't read in car ??? Post-operative nausea and vomiting was vomiting as she was waking up from knee surgery, done in [facility] No past surgical history on file. Social History Tobacco Use ??? Smoking status: Never Smoker ??? Smokeless tobacco: Never Used Substance Use Topics ??? Alcohol use: Yes Types: 3 Glasses of wine, 1 Cans of beer, 1 Shots of liquor per week Social History Substance and Sexual Activity Drug Use Never Allergies Allergen Reactions ??? Codeine Phosphate CIS - very sleepy ??? Nsaids (Non-Steroidal Anti-Inflammatory Drug) Other (See Comments) Told she shouldn't take d/t kidney stones and left kidney being plugged Medications: MAR and/or home medications have been reviewed. Physical Exam: There were no vitals filed for this visit. There is no height or weight on file to calculate BMI. Airway Assessment: Mallampati: II TM distance: >3 FB Neck ROM: full Cardiovascular Assessment: Rhythm: regular Rate: normal Pulmonary Assessment: breath sounds clear to auscultation Dental Assessment: Misc Assessment: IV access: Peripheral line Anesthesia Plan: ASA 3 general, with a(n) intravenous induction 77 yo m will undergo laparoscopy and radical nephrectomy due to atropic kidney. PMhx GERD, motion sickness, recurrent urolithiasis. No known cardiac or pulmonary issues. No smoking hx. Drinks about 3 glasses of wine/day. Several past surgeries. Prior anesthesia with n/v. Allergies to codeine and NSAIDS (unclear reaction). Recent studies labs 08/13/18 with Hg 14.3, plt 208, lytes with K 5.1, Cr 1.06. Will plan on GA with ETT and propofol infusion with propofol/sevolfluorane maintenance to decrease risk of post-op n/v. May benefit from pre-op scopolamine patch. Likely second IV in case of need for transfusion (T&S on file - good until 08/24/18). Regional block for post-op pain control. Anesthesiaconcerns include risk of blood loss (maximum allowable blood loss about 2L). Anesthesia Staff (Sites) I have seen and examined the patient. I have reviewed the medical record and pertinent laboratory information. I have noted the major medical issues as outlined above. I have reviewed risks from minor to major as outlined in the anesthesia consent form. I have highlighted risks related to airway management, regional anesthesia, long-duration surgical procedure (position-related injury), and perioperative opioid therapy. The patient was counseled regarding the dangers of opioid medications medications that may be prescribed including sedation and exacerbation of sleep apnea if present. The potential for addiction was discussed and the need to stop use as soon as possible. It was recommended that she promptly destroy unused medication or take them back to drop box locations. She is aware that our care model is based on a team and I will be working with either a MATERIAL HANDLING EQUIPMENT STEVEDORE or resident physician. A resident physician means a physician who is in training to be an anesthesiologist. The patient acknowledged these risks and would like to proceed with the anesthesia plan. Informed Consent: Anesthetic plan and risks discussed with patient. Plan discussed with resident. PAT Clinic Note documented in this encounter Miscellaneous Notes Addendum Note - Bernardo Araujo CRNA - 08/24/2018 4:18 PM EDT Addendum created 08/24/18 1618 by Bernardo Araujo CRNA Intraprocedure Meds edited Addendum Note - Beth Michael MD - 08/24/2018 9:53 AM EDT Addendum created 08/24/18 0953 by Beth Michael MD Sign clinical note documented in this encounter Plan of Treatment Not on filedocumented as of this encounter Procedures Procedure Name Priority Date/Time Associated Diagnosis Comme nts ANESTHESIA BLOCK Routine 08/21/2018 2:53 PM Resul ts for this EDT procedure are i n the results section. documented in this encounter Results Anesthesia Block (08/21/2018 2:53 PM EDT) Narrative Carola Lam MD - 08/21/2018 2:53 PM EDT Beth Michael MD ? 08/21/2018 ??2:55 PM Anesthesia Block Date/Time: 08/21/2018 2:33 PM Performed by: Beth Michael MD Authorized by: Carola Lam MD Start Time: ??08/21/2018 2:30 PM End Time: ??08/21/2018 2:35 PM Patient Location: ??Main OR The patient was greeted; the risks and b enefits of the procedure were reviewed. ?? Indication: ??Post-op Pain Control Post-op pain management at the request o f surgeon. ?? Block Type: ??TAP Laterality: ??Left Position: ??Right lateral decubitus Prep: ??Chlorhexidine, patient draped an d mask, cap, sterile gloves, hand hygeine [id number]-mnlgy 21 10 cm Ultrasound Guided: ??YES and in-plane. ? ?Ultrasound Image(s) were saved. Ultrasound guidance was used to identify the targeted neuronal structure. Ultrasound was also used to identify nee dle position and to identify tissue (bone, muscle, and blood vessels) to prevent inadvertent intraneural or intravascular needle plac ement and injection. The spread of local anesthetic was confirmed with live ultrasound imaging. ?? Single-Shot: ??Single-shot BUpivacaine 0.5%, 30 mL Resident/MATERIAL HANDLING EQUIPMENT STEVEDORE:: ??Beth Michael MD Fellow:: ??Yousif Jsoe MD Attending Physician:: ??Carola Lam MD Carola Lam MD CYBER LEGAL ADVISOR [facility] documented in this encounter Visit Diagnoses Not on filedocumented in this encounter Administered Medications Inactive Administered Medications - up to 3 most recent administrations Medication Order MAR Action Action Date Dose Rate Site BUpivacaine (PF) (MARCAINE) 0.5 % Given 08/21/2018 2:33 PM EDT 3 0 mLs (5 mg/mL) injection Starting on Fri08/21/18 at 1433, Until Fri08/21/18 at 1433, Anesthesia Intra-op, Routine ceFAZolin (ANCEF) 1g in dextrose 5% 50mL Given 08/21/2018 4:55 PM EDT 2 g PRN, Starting on Fri08/21/18 at 1355, Until Fri08/21/18 at 2019, Administer over 30 Minutes, Anesthesia Intra-op Given 08/21/2018 1:55 PM EDT 2 g ePHEDrine 5 mg/mL multi-dose injection Given 08/21/2018 1:40 PM EDT 10 mg PRN, Starting on Fri08/21/18 at 1330, Until Fri08/21/18 at 2019, Anesthesia Intra-op, Routine Given 08/21/2018 1:35 PM EDT 20 mg Given 08/21/2018 1:30 PM EDT 10 mg esmolol (BREVIBLOC) injection Given 08/21/2018 3:34 PM EDT 5 mg PRN, Starting on Fri08/21/18 at 1534, Until Fri08/21/18 at 2019, Anesthesia Intra-op, Routine Given 08/21/2018 1:45 PM EDT 10 mg fentaNYL 50 mcg/mL multi-dose injection Given 08/21/2018 3:09 PM EDT 50 mcg PRN, Starting on Fri08/21/18 at 1320, Until Fri08/21/18 at 2019, Anesthesia Intra-op, Routine Given 08/21/2018 2:48 PM EDT 50 mcg Given 08/21/2018 1:20 PM EDT 100 mcg heparin (porcine) multi-dose injection Given 08/21/2018 1:29 PM EDT 5,000 Units PRN, Starting on Fri08/21/18 at 1329, Until Fri08/21/18 at 2019, Anesthesia Intra-op, Routine HYDROmorphone (DILAUDID) injection Given 08/21/2018 6:48 PM EDT 0.4 mg PRN, Starting on Fri08/21/18 at 1526, Until Fri08/21/18 at 2019, Anesthesia Intra-op, Routine Given 08/21/2018 6:23 PM EDT 0.4 mg Given 08/21/2018 6:01 PM EDT 0.4 mg lactated ringers infusion New Bag 08/21/2018 3:17 PM EDT CONTINUOUS PRN, Starting on Fri08/21/18 at 1310, Until Fri08/21/18 at 2019, Anesthesia Intra-op New Bag 08/21/2018 1:10 PM EDT midazolam (PF) (VERSED) multi-dose injec tion Given 08/21/2018 1:10 PM EDT 2 mg PRN, Starting on Fri08/21/18 at 1310, Until Fri08/21/18 at 2019, Anesthesia Intra-op, Routine ondansetron (ZOFRAN) injection Given 08/21/2018 6:11 PM EDT 4 mg PRN, Starting on Fri08/21/18 at 1811, Until Fri08/21/18 at 2019, Anesthesia Intra-op, Routine PHENYLephrine in NS (PF) (RAJ-SYNEPHRINE) 0.8 Given 6:39 PM EDT 80 mcg mg/10 mL (80 mcg/mL) multi-dose injection Syrg PRN, Starting on Fri08/21/18 at 1330, Until Fri08/21/18 at 2019, Anesthesia Intra-op, Routine Given 08/21/2018 1:35 PM EDT 80 mcg Given 08/21/2018 1:30 PM EDT 40 mcg propofol (DIPRIVAN) 10 mg/mL bolus injection Given 06/2018 1:20 PM EDT 150 mg (Anesthesia) PRN, Starting on Fri08/21/18 at 1355, Until Fri08/21/18 at 2018, Anesthesia Intra-op propofol (DIPRIVAN) Rate/Dose 08/21/2018 6:47 50 mcg/kg/min 18.4 mL/ hr infusion Change PM EDT CONTINUOUS PRN, Starting on Fri08/21/18 at 1330, Until Fri08/21/18 at 2019, Anesthesia Intra-op, Routine New Bag 08/21/2018 1:30 PM EDT 30 mcg/kg/min 11 mL/hr rocuronium (ZEMURON) multi-dose injectio n Given 08/21/2018 4:18 PM EDT 20 mg PRN, Starting on Fri08/21/18 at 1320, Until Fri08/21/18 at 2019, Anesthesia Intra-op, Routine Given 08/21/2018 2:56 PM EDT 10 mg Given 08/21/2018 1:20 PM EDT 50 mg sodium chloride 0.9% infusion New Bag 08/21/2018 1:15 PM EDT CONTINUOUS PRN, Starting on Fri08/21/18 at 1315, Until Fri08/21/18 at 2019, Anesthesia Intra-op documented in this encounter Care Teams Patient Support Tech Relationship Specialty Start Date End Date Richie Mendez DO PCP - General Family Medicine 03/27/18 [address] [place] [address] documented as of this encounter
--- OUTSIDE RECORDS SUMMARY | 2022-01-11 00:44 | XMS_ITS | Clinical Summary ---
:1940 Author Organization [facility] [place] [address] Care Team Providers Name Role Phone Richie Mendez Primary Care Provider Allergies Active Allergy Reactions Severity Noted Date Comments Codeine Phosphate High CIS - very sleepy Nsaids (Non-Steroidal Other (See Comments) 08/13/2018 Told she shouldn't Anti-Inflammatory Drug) take d/t kidney stones and left kidney being plugged Medications Medication Sig Dispensed Refills Start Date End Date Status acetaminophen Take 1,000 mg by 0 Active (TYLENOL) 500 mg mouth every 6 Tablet hours as needed for Pain. lidocaine-menthol 4-1 Apply 1 patch 7 patch 0 01/29/2019 Active % Adhesive Patch, topically over 24 Medicated hrs. Additional Information Patient not taking. Reported on 03/04/2019 Active Problems Problem Noted Date Atrophic kidney 07/22/2018 Hydronephrosis, left 03/28/2018 Atrophic kidney, acquired 03/28/2018 Renal cyst, right 03/28/2018 Brachioradial pruritus 10/31/2015 Social History Tobacco Use Types Packs/Day Years Used Date Smoking Tobacco: Never Smokeless Tobacco: Never Alcohol Use Standard Drinks/Week Comments Yes 3 (1 standard drink = 0.6 oz pure alcoho l) 2 wine a week. Sex Assigned at Date Recorded Not on file Last Filed Vital Signs Vital Sign Reading Time Taken Comments Blood Pressure 155/77 03/04/2019 10:54 AM EST Pulse 82 01/29/2019 10:22 AM EST Temperature 36.9 ??C (98.5 ??F) 03/04/2019 10:54 AM EST Respiratory Rate 20 03/04/2019 10:54 AM EST Oxygen Saturation 100% 12/10/2018 9:47 AM EDT Inhaled Oxygen Concentration - - Weight 61.2 kg (135 lb) 03/04/2019 10:54 AM EST Height 152.4 cm (5') 03/04/2019 10:54 AM EST Body Mass Index 26.37 03/04/2019 10:54 AM EST Plan of Treatment Health Maintenance Due Date Last Done Comments Covid-19 Vaccine (#1) 05/06/1941 Hepatitis C Screening 1958 Tdap adult 1961 Tetanus vaccine 1961 Zoster vaccine (1 of 2) 1992 Advance Directive 1997 Bone Density Scan 11/06/2007 Pneumoccocal Vaccine: 65+ (1 - PCV) 11/06/2007 Influenza (Flu) vaccine (1 of 1 - Influenza standard 10/18/2021 series) Insurance Payer Benefit Plan / Subscriber ID Effective Phone Address T ype Group Dates MEDICARE MEDICARE PART A [id number] 2007-Prese [phone] [place] [address] AARP SUPPLEMENT AARP SUPPLEMENT [id number] 2015-[address] [address] [place] [address] Advance Directives Latest Code Status on File Code Status Date Activated Date Inactivated Comments Full Code 08/21/2018 7:59 PM 08/22/2018 6:44 PM Question Answer Comments Does patient have capacity to make decision: Yes Code Status History Code Status Date Activated Date Inactivated Comments Full Code 08/21/2018 11:21 AM 08/21/2018 7:59 PM Question Answer Comments Does patient have capacity to make decision: Yes Care Teams Sales And Service Engineer Relationship Specialty Start Date End Date Richie Mendez DO PCP - General Family Medicine 03/27/18 [address] [place], [place] [id number]
--- OUTSIDE RECORDS SUMMARY | 2022-01-11 00:44 | XMS_ITS | Encounter Summary ---
:1940 [place] [address] Care Team Providers Name Role Phone Vanessa Richie Das DO Primary Care Provider Reason for Visit Auth/Cert Specialty Diagnoses / Procedures Referred By Contact Refer red To Contact Diagnoses Atrophic kidney LEFT ATROPHIC KIDNEY/ PAIN Procedures PRO LAP, RADICAL NEPHRECTOMY @LAPAROSCOPY, RADICAL NEPHRECTOMY (WRVU 25.06) Referral ID Status Reason Start Date Expiration Date Visits Requ ested Visits Authorized [id number] 1 1 Encounter Details Date Type Department Care Team Description 08/21/2018 - Hospital Encounter 2 [facility] Yanelis Romi Velazquez, 08/22/2018 [facility] [address] [place] [id number] [phone] Social History Tobacco Use Types Packs/Day Years Used Date Smoking Tobacco: Never Smokeless Tobacco: Never Alcohol Use Standard Drinks/Week Comments Yes 3 (1 standard drink = 0.6 oz pure alcoho l) 2 wine a week. Sex Assigned at Date Recorded Not on file documented as of this encounter Last Filed Vital Signs Vital Sign Reading Time Taken Comments Blood Pressure 125/64 08/22/2018 12:00 PM EDT Pulse 94 08/22/2018 12:00 PM EDT Temperature 36.6 ??C (97.9 ??F) 08/22/2018 12:00 PM EDT Respiratory Rate 16 08/22/2018 12:00 PM EDT Oxygen Saturation 97% 08/22/2018 12:00 PM EDT Inhaled Oxygen Concentration - - Weight 61.2 kg (135 lb) 08/22/2018 2:35 AM EDT Height 152.4 cm (5') 08/22/2018 2:35 AM EDT Body Mass Index 26.37 08/22/2018 2:35 AM EDT documented in this encounter Discharge Summaries Azael Robles MD - 08/22/2018 3:18 PM EDT Discharge Summary Patient Name: Paz Phillips Patient Age: 77 y.o. Language: Lebanese Race: White Ethnicity: Not nor Admit date: 08/21/2018 Discharge date: 08/22/18 Attending Physician: Romi Velazquez MD Discharge Diagnoses (Hospital Problems) and Secondary Diagnoses (Chronic Problems): Active Hospital Problems Diagnosis ??? Atrophic kidney Resolved Hospital Problems No resolved problems to display. Active Non-Hospital Problems Diagnosis ??? Hydronephrosis, left ??? Atrophic kidney, acquired ??? Renal cyst, right ??? Brachioradial pruritus Operations/Major Procedures: Procedure(s): @LAPAROSCOPY, RADICAL NEPHRECTOMY (WRVU 25.06) 08/21/2018 - 08/22/2018 Findings: -Dilated left atrophic kidney -Single left artery and vein -Antegrade ureteroscopy with calcified debris cleared out, completely obliterated distal ureter without mobile stone identified History of Presentation: Paz Phillips is a 77 y.o. female w/ hx of IBS, GERD, and urolithiasis/recurrent infection w/ left ureteral stricture/hydronephrosis in context of atrophic left kidney; this has been causing her intermittent left sided flank pain. She presents today for left laparoscopic nephrectomy. ?? She was last seen on 03/27/18 at which time she was asymptomatic. Please see clinic note for full history. ?? No interval changes. No recent illness or changes in health. ?? Pre-op urine cx was positive for 1-9K GPCs -- likely contaminant. She will receive ancef today for prophylaxis. Hospital Course: Patient was admitted electively to [facility] via the same day surgery program and underwent the above procedure. She tolerated surgery well and was tranferred from the PACU to the general floor in good condition a few hours after surgery. Operative findings are below: Findings: -Dilated left atrophic kidney -Single left artery and vein -Antegrade ureteroscopy with calcified debris cleared out, completely obliterated distal ureter without mobile stone identified Patient's hospital course was uncomplicated. She remained afebrile, with stable vital signs throughout her hospital stay. Today, on POD# 1 she has met all criteria for discharge home: her pain is well controlled with medications by mouth, she is tolerating a regular diet, is voiding spontaneously without difficulties, and is up and ambulating without complications. Scott was removed and she voided with PVR 0. She has been deemed safe for discharge. Plan will be for follow up with Dr. Velazquez in 2 weeks for wound check. She will be sent home with PO Keflex QID for 5 days as prophylaxis. Prescriptions have been sent to [facility] in [facility] Vital Signs at Discharge: Weight: Wt Readings from Last 1 Encounters: 08/22/18 61.2 kg (135 lb) Height: Ht Readings from Last 1 Encounters: 08/22/18 152.4 cm (5') BMI: Body mass index is 26.37 kg/m??. Last value Range last 24 hrs Temperature Temp: 36.6 ??C (97.9 ??F) Temp: [36.3 ??C (97.3 ??F)-37 ??C (98.6 ??F)] Heart Rate Heart Rate: 94 Heart Rate: [79-109] Blood Pressure BP: 125/64 BP: (115-131)/(52-71) Respiratory Rate Resp: 16 Resp: [9-19] SpO2 SpO2: 97 % SpO2: [89 %-100 %] Exam at Discharge: General: AOx3 CV: RRR Pulm: CTAB Abd: Soft, slightly distended, appropriately tender Incision: c/d/i Ext: WWP Functional and Cognitive Status: Ambulating and cognitively intact. Important Studies and Lab Data: Last 3 wbc, hgb, hct plt Recent Labs 08/22/18 0124 08/21/18200508/13/18 1037 WBC 14.0* 13.9* 5.7 HGB 13.3 13.4 14.3 HCT 41.9 43.4 46.1* PLATELET 164 169 208 Studies: none Pending Studies and Lab Data: No current labs Discharge Conditions/Prognosis: stable Outpatient Services/Studies: No discharge procedures on file. Discharge to: Home Updated Allergies/ADRs: Allergies Allergen Reactions ??? Codeine Phosphate CIS - very sleepy ??? Nsaids (Non-Steroidal Anti-Inflammatory Drug) Other (See Comments) Told she shouldn't take d/t kidney stones and left kidney being plugged Immunizations Given this Hospitalization: There is no immunization history on file for this patient. Discharge Medications: Your Medications New Medications Dose Details cephALEXin 250 mg Cap Commonly known as: KEFLEX Take 1 capsule by mouth every 6 hours for 5 days. 250 mg Quantity: 20 capsule Refills: 0 oxyCODONE 5 mg Tab Commonly known as: ROXICODONE Take 1 tablet by mouth every 4 hours as needed for Pain. Replaces: oxyCODONE 5 mg Tbor 5 mg Quantity: 15 tablet Refills: 0 Continued medications, unchanged Dose Details acetaminophen 500 mg Tab Commonly known as: TYLENOL Take 1,000 mg by mouth every 6 hours as needed for Pain. 1000 mg Refills: 0 STOPPED Medications oxyCODONE 5 mg Tbor Commonly known as: OXECTA Replaced by: oxyCODONE 5 mg Tab Smoking Status at Discharge: Social History Tobacco Use Smoking Status Never Smoker Smokeless Tobacco Never Used Instructions Given to Patient at Discharge: Patient Instructions UROLOGY NEPHRECTOMY DISCHARGE INSTRUCTIONS Call your doctor for: ??? fevers greater than 100.5 ??? severe nausea or vomiting ??? increasing pain not controlled by pain medications ??? increasing redness or drainage from incisions ??? decreased urine output, inability to urinate ??? Burning with urination or urinary frequency The number for questions is before 5 PM weekdays and [phone] after 5 PM and weekends, and ask for clinical operations specialist Urologist. Special Considerations for Solitary Kidneys: Do not take megavitamins, herbal products, and NSAID pain relievers (such as ibuprofen, Motrin, Advil, naproxen, Aleve)., unless instructed otherwise by your Physician. Pharmacy : Please be sure that you take adequate fluids with all medication. It is important to discuss any medications, dietary supplements with your physician before starting them. Please be sure to remind all prescribing physicians that you have one kidney. Activity level: No heavy lifting greater than 10 pounds (about equal to a full gallon jug) for the next 4-6 weeks or until cleared to do so at follow-up appointment. Otherwise activity as tolerated by comfort level. Take frequent short walks throughout the day. There is no such thing as too much walking. Diet: You may resume your regular diet as tolerated. Drink plenty of fluids. Bowel Meds: The major problem most patients have after surgery is return of bowel function, gas and constipation. Take stool softeners as directed until bowels return to normal. If needed, take a laxative such as Miralax, Senna, Dulcolax. Generic is fine. Antibiotics: Please take the prescribed antibiotics (Keflex) to prevent urinary tract infections as directed. Pain Meds: For pain, please take tylenol 1000mg every 6 hours as needed. If you pain is not controlled by these medications, you may take the narcotic pain medications as prescribed (oxycodone 5mg every 4-6 hours). Be sure to take a stool softener (colace or miralax) to prevent constipation, common with this medication Driving: No driving while still taking opioid pain medications (wait at least 6- 8 hours since last dose). No driving if you are still sore from surgery as it may limit your ability to react quickly if necessary. Shower/Bath: You may shower and get incision(s) wet. Pat dry immediately following your shower. Do not scrub them vigorously for the next 2-3 weeks. Do not soak incision(s) (i.e. soaking in bath, hot tub, or swimming) until told you may do so by a doctor, as this may promote a wound infection. Wound Care: You may cover wounds with sterile gauze as needed to prevent incision rubbing on clothesor for any seepage. Your sutures are absorbable and do not need to be removed. Your incision is covered by a layer of surgical glue which will peel off on its own. Do not pick it off. Urology Follow up Appointments: Your surgical follow-up appointment will be scheduled with Dr. Galeas approximately 2 weeks. Appointment will be mailed to you. Please call (clinic number for appointments) to confirm date and time of your appointment if you do not receive it. General Instructions None Follow-Up: No future appointments. Primary Care Provider: Richie Mendez DO [phone] Follow-up Recommendations for Providers: * Call your doctor if: Please call your doctor immediately or go to an Emergency Department if you notice worsening pain not controlled by pain medications, uncontrolled headache, vision changes, chest pain, difficulty breathing, persistent nausea and vomiting, new redness or swelling in any extremities, new onset weakness or changes in sensation, or for any fevers greater than 101.3 F. Your care was managed by the Urology Team at [facility]. If you have any questions or concerns, please feel free to contact us. Provider Contact Information: Urology Clinic: [facility] (after business hours): Discharge References/Attachments None Associated attestation - Je Persaud III, MD - 08/23/2018 7:40 AM EDT I have seen the patient and reviewed the resident's above history and I agree with the details as written. The assessment and plan were formulated in discussion with me and I agree with them as documented. Je Persaud III, MD tennis instructor and Pediatrics [facility] [employer] Senior Staff Pediatric Urologist [facility] documented in this encounter Discharge Instructions Patient InstructionsAzael Robles MD - 08/21/2018 2:38 PM EDT UROLOGY NEPHRECTOMY DISCHARGE INSTRUCTIONS Call your doctor for: ??? fevers greater than 100.5 ??? severe nausea or vomiting ??? increasing pain not controlled by pain medications ??? increasing redness or drainage from incisions ??? decreased urine output, inability to urinate ??? Burning with urination or urinary frequency The number for questions is before 5 PM weekdays and [phone] after 5 PM and weekends, and ask for clinical operations specialist Urologist. Special Considerations for Solitary Kidneys: Do not take megavitamins, herbal products, and NSAID pain relievers (such as ibuprofen, Motrin, Advil, naproxen, Aleve)., unless instructed otherwise by your Physician. Pharmacy : Please be sure that you take adequate fluids with all medication. It is important to discuss any medications, dietary supplements with your physician before starting them. Please be sure to remind all prescribing physicians that you have one kidney. Activity level: No heavy lifting greater than 10 pounds (about equal to a full gallon jug) for the next 4-6 weeks or until cleared to do so at follow-up appointment. Otherwise activity as tolerated by comfort level. Take frequent short walks throughout the day. There is no such thing as too much walking. Diet: You may resume your regular diet as tolerated. Drink plenty of fluids. Bowel Meds: The major problem most patients have after surgery is return of bowel function, gas and constipation. Take stool softeners as directed until bowels return to normal. If needed, take a laxative such as Miralax, Senna, Dulcolax. Generic is fine. Antibiotics: Please take the prescribed antibiotics (Keflex) to prevent urinary tract infections as directed. Pain Meds: For pain, please take tylenol 1000mg every 6 hours as needed. If you pain is not controlled by these medications, you may take the narcotic pain medications as prescribed (oxycodone 5mg every 4-6 hours). Be sure to take a stool softener (colace or miralax) to prevent constipation, common with this medication Driving: No driving while still taking opioid pain medications (wait at least 6- 8 hours since last dose). No driving if you are still sore from surgery as it may limit your ability to react quickly if necessary. Shower/Bath: You may shower and get incision(s) wet. Pat dry immediately following your shower. Do not scrub them vigorously for the next 2-3 weeks. Do not soak incision(s) (i.e. soaking in bath, hot tub, or swimming) until told you may do so by a doctor, as this may promote a wound infection. Wound Care: You may cover wounds with sterile gauze as needed to prevent incision rubbing on clothesor for any seepage. Your sutures are absorbable and do not need to be removed. Your incision is covered by a layer of surgical glue which will peel off on its own. Do not pick it off. Urology Follow up Appointments: Your surgical follow-up appointment will be scheduled with Dr. Galeas approximately 2 weeks. Appointment will be mailed to you. Please call (clinic number for appointments) to confirm date and time of your appointment if you do not receive it. documented in this encounter Medications at Time of Discharge Medication Sig Dispensed Refills Start Date End Date acetaminophen (TYLENOL) Take 1,000 mg by 0 500 mg Tablet mouth every 6 hours as needed for Pain. cephALEXin (KEFLEX) 250 Take 1 capsule by 20 capsule 0 08/2208/27/2018 mg Capsule mouth every 6 hours for 5 days. oxyCODONE (ROXICODONE) 5 Take 1 tablet by 15 tablet 0 08/2212/10/2018 mg Tablet mouth every 4 hours as needed for Pain. documented as of this encounter Progress Notes Rachel Dutton RN - 08/22/2018 4:39 PM EDT Reviewed AVS; pt returned verbalization of discharge instructions. New Rx sent electronically to pt's home pharmacy. PIV removed. Patient left [facility] in a wheelchair accompanied by 2 [facility] staff. Beth Fernández MD - 08/22/2018 4:39 PM EDT Spoke to patient via telephone. Peripheral nerve block resolved appropriately. No residual weakness/numbness/decreased sensation. No sign of infection at injection site. Tolerating POs appropriately. Patient very satisfied with nerve block. BETH FERNÁNDEZ MD 08/24/2018 Alicia Muller RN - 08/22/2018 3:31 AM EDT Pt admitted to [facility] at 0245. Oriented to room, call light and unit. Belongings (including glasses went home with spouse). Bed alarm on. A&Ox4. Scott w/ adequate UOP. Pt denies pain upon arrival. Incision sites c/d/i. LR@100ml/hr. Will continue to monitor. BP 127/71 (Patient Position: Sitting) Pulse 81 Temp 36.8 ??C (98.2 ??F) (Oral) Resp 19 Ht 152.4 cm (5') Wt 61.2 kg (135 lb) SpO2 96% BMI 26.37 kg/m?? Anushka Azevedo MD - 08/22/2018 3:22 AM EDT UROLOGY POST-OP NOTE Pazluther Phillips is a 77 y.o. female s/p Subjective Pain well-controlled. Denies nausea/vomiting, abdominal pain, chest pain, SOB. Good urine output. Urine is clear yellow in scott. Objective Temp: [36.4 ??C (97.5 ??F)-37 ??C (98.6 ??F)] Heart Rate: [81-102] Resp: [9-19] BP: (126-131)/(64-71) SpO2: [96 %-99 %] Heart Rate from SpO2: [88 bpm-109 bpm] I/O this shift: In: 578 [P.O.:180; I.V.:348; IV Piggyback:50] Out: 920 [Urine:920] Physical Exam GEN: NAD. Resting comfortably. CV: RRR, normal S1 S2 sounds. CHEST: CTAB. ABD: Soft, non-distended. Moderate post-op tenderness to RUQ. Incisional dressing clean and dry without drainage or surrounding erythema. EXTR: Moving spontaneously, warm. SCDs in place. Assessment/Plan Paz Phillips is a 77 y.o. female s/p . Stable post-op. - Pain well-controlled on current regimen. - Hemodynamically stable. - UOP adequate, continue to monitor. - SCDs in place. - Continue post-op plan per primary team. Monserrat Greene RN - 08/21/2018 11:36 PM EDT 0 - report from CLEMENT Jeffery and care resumed. Monitor alarms set per floor protocols. Pt will floor board overnight in pacu bay 22. Pt identified with id band and per pt verbalized. Pt assessed. Alert and oriented x 4. Perrl, morejon. Clear voice. Pleasant. Pt denies pain but will grimace to touch of abdomen - stoic but can fall asleep and seems tolerable. sats good on room air and clear lungs. Dry cough on command. Vss. ivf infusing via right hand piv. Left hand piv saline locked. bilat venodynes on. Skin intact - pale pink, warm and dry, afebrile. abd soft - lap sites x 4 and small umbilical incision of 2 inches - all cdi - all closed with dermabind and open to air. Turned - back intact - mepilex intact on sacrum. Left forearm with soft bulge area noted - MD aware Per reporting RN. Pt denies nausea.jorge a sips water. Yael Azevedo MD for ivf maintenance order. Scott intact and secured to bedside bag- good amounts clear yellow urine. Pt in bed - tipped to left side. Call al in reach. No pt belongi [facility], family left for home earlier. 0130 - pt sleeping well. Stable. Am labs sent. 0145 - report to CLEMENT Matute and pt readied for transfer to [facility] via bed. Rosi Ceja RN - 08/21/2018 7:52 PM EDT 1945- On arrival to pacu, pt is sedated. Unable to follow commands. Breathing is equal and non labored w/ oxygen at 6L via simple mask. Surgical sites to abd w/ Dermabond- dry and intact. (+) scott cath w/ clear yellow urine. Cont to monitor. 2007- Stat labs collected and sent. 2044- Pt is drowsy, easily aroused, follows commands. C/O lower abdominal pain of 6/10. See MAR for meds given. 2056- Marked ready for visitation. 2099- Pt has met pacu phase II criteria. Will board in the PACU. Family ( & son) at for visitation. 2210- Report to Jennifer [place] [employer]. documented in this encounter H&P Notes Romi Velazquez MD - 08/21/2018 12:16 PM EDT Images from the original note were not included. Interval H&P HPI: Paz Phillips is a 77 y.o. female w/ hx of IBS, GERD, and urolithiasis/recurrent infection w/ left ureteral stricture/hydronephrosis in context of atrophic left kidney; this has been causing her intermittent left sided flank pain. She presents today for left laparoscopic nephrectomy. She was last seen on 07/16/18 at which time she had a second renal colic episode. Please see full H&P note below for updated history. No interval changes. No recent illness or changes in health. Pre-op urine cx was positive for 1-9K GPCs -- likely contaminant. She will receive ancef today for prophylaxis. Physical Exam: General: NAD Cardiac: RRR Respiratory: CTAB Plan: Will proceed with planned surgery - left laparoscopic nephrectomy. Consent confirmed. Left side marked. MD Marcus Aguirre Rachel A, MD Physician Urology Progress Notes Signed Encounter Date: 07/16/2018 Show:Clear all [x]Manual[x]Template[x]Copied Added by: [x]Romi Velazquez MD []Essence for details UROLOGY OUTPATIENT FOLLOW UP ?? CHIEF COMPLAINT: Left lower quadrant / flank pain ?? HISTORY OF PRESENT ILLNESS Paz Phillips is a 77 y.o. female with a long standing history of recurrent urolithiasis presenting with her for discussion of left hydroureteronephrosis. Her pertinent urologic history is as follows. ?? 2002: She recalls undergoing SWL in [place] which failed to fully fragment the stone; she then underwent ureteroscopy (reportedly complex/difficult) as well as repeat SWL; she is unsure if she ever cleared all of the stone fragments. By report, a KUB was obtained in 2006 which did not show definote stone. ?? 2009: She was seen in [place] with 3-4 months of moderate LLQ pain radiating towards her psilterallabia as well as suspected bladder spasms and was found to have obstruction of the left ureter on CTimaging. She underwent attempt at URS by Dr. Black at [facility]. She was found to have left [...] risks and benefits. She elected to observe. ? 09/06/09: MAG 3 right function 88% and left 15% - underwent right URS and dense stricture ?? 02/2018: She remained asymptomatic for almost 10 [...] offered observation vs. Hand assisted lap nephrectomy. ? 03/27/18: seen by me at [facility]. At that time she reports her LLQ [...] lap/robotic/open nephrectomy and she elected to observe. ?? 07/16/18: Presented to OSH again with severe LLQ pain, this time radiated to the flank. 10/10 at worst. Came on after using the weed eater in the garden. Was seen at OSH ED, pain subsequently resolved with po pain meds. Work up neg for infection, CT with stable left hydro/atrophic kidney. ? Today her pain is controlled without medications. She denies fevers, chills, nausea, gross hematuria, or dysuria. She is now interested in nephrectomy. ?? GYNECOLOGIC HISTORY G 5 P 4 Route: Menopause: age 1993 HRT: on premerin x 3 mo then went off ? PAST MEDICAL HISTORY Urolithiasis GERD IBS ?? PAST SURGICAL HISTORY URS SWL Tubal ligation ?? 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 FAMILY HISTORY No known history of malignancy or urolithiasis ? ALLERGY Allergies Allergen Reactions ??? Codeine Phosphate ? CIS - very sleepy ? HOME MEDICATIONS None ?? REVIEW OF SYSTEMS A full 12 point review of systems was performed and notable for the findings listed in the HPI, otherwise negative ? VITALS Most Recent Vitals: ?? 07/16/18 1134 Pulse: 78 Resp: 18 Temp: 36.7 ??C (98.1 ??F) SpO2: 99% PainSc: 3 ? PHYSICAL EXAM GEN: Alert and oriented to person, place and time. NAD CV: Regular rate HEENT: NCAT PULM: Non labored breathing on RA ABD: Soft, non distended, non tender to palpation. : No CVA tenderness.?? RECTAL: deferred MSK: Left gluteal injury-walks with cane NEURO: grossly normal, no focal deficits, moves all 4 extremities EXT: symmetric ? UA: Negative for blood, leukocyte esterase, nitrites ? IMAGING: I personally reviewed the following imaging: CT Abdomen / Pelvis 02/26/18 Severe hydroureteronephrosis to the level of a 5mm left distal ureteral stone, almost no visible left renal parenchyma, unchanged size/position of the 5mm distal stone as compared to 2010 CT (per report), large simple right renal cyst with calcification, stable in size and characteristic since 2010, no right hydroureteronephrosis or stones. ? 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 She also has a stable asymptomatic right renal cyst ?? I have re-discussed all management options including [...] will book this at her soonest convenience. ? PLAN -Book Lap radical nephrectomy -PAT with CBC, BMP, type and screen, urine culture ? In the interim have extensively counseled her on reasons to call or return including recurrent severe colic symptoms/febrile UTI, questions or concerns. Romi Velazquez MD ? documented in this encounter Miscellaneous Notes Plan of Care - Rachel Dutton RN - 08/22/2018 1:48 PM EDT Problem: Patient Care Overview Goal: Plan of Care Review Outcome: Ongoing (Interventions Implemented as Appropriate) 08/22/18 1320 Coping/Psychosocial Plan Of Care Reviewed With patient Plan of Care Review Progress progress toward functional goals as expected OUTCOME EVALUATION NOTE: OUTCOME SUMMARY: Susan rested comfortably between care. Her pain was 4/10, administered scheduled tylenol w/ some effect. Her diet was advanced to regular, tolerated well, denied nausea. Scott was D/C'd in the AM, passed voiding trial w/ a PVR of 0ml. No BM this shift. Ambulated in hallway x2, tolerated well. Family at bedside for part of the shift. PLAN MOVING FORWARD: Encourage ambulation. Pain management. INDIVIDUALIZED FALL PREVENTION INTERVENTIONS: High Fall Risk Patient-specific fall risk factors per assessment: [current deficits]: Patient has 2 or more active diagnoses, recent surgery, has an actively infusing IV line, uses an ambulatory aid, has generalized weakness, pain, and opioids for pain. Assistance [level of assistance required for transfers and ambulation]: One assist w/ FWW. Supervision [direct monitoring required during toileting and ADLs]: Eyes on. Surveillance [continuous indirect monitoring]: Hourly rounding, observation by staff, NKE at bedside. Assistive device, bed/chair alarm, family at bedside, environmental modifications (reduce clutter, lighting adjusted for safety, IV tubing and cords are free from the floor), glasses at bedside, nonskid shoes/slippers when out of bed, sitter at bedside, bed in low position, upper position siderails raised x2, wheels locked, call light in reach, ID bands on, yellow falls ID band on Patient-specific fall prevention interventions for sensory deficits provided, if applicable: N/A CPG GOAL OUTCOME EVALUATION: Op Note - Romi Velazquez MD - 08/22/2018 9:38 AM EDT Operative Note Patient Name: Paz Phillips : [id number] MR#: [id number] Case Date: 08/21/2018 Surgeon: Surgeon(s) and Role: * Romi Velazquez MD - Primary * Tracie Angela MD - Resident * Khari Lemus MD - Assisting Attending Preoperative diagnosis: LEFT ATROPHIC KIDNEY/ PAIN Postoperative diagnosis: LEFT ATROPHIC KIDNEY/ PAIN Procedure(s) (LRB): @LAPAROSCOPY, RADICAL NEPHRECTOMY (WRVU 25.06) (Left) Anesthesia: General Findings: -Dilated left atrophic kidney -Single left artery and vein -Antegrade ureteroscopy with calcified debris cleared out, completely obliterated distal ureter without mobile stone identified Complications: none Intake: Intraprocedure Crystalloid Total Lactated Ringers Volume (mL) 1700 mL Sodium Chloride 0.9% Volume (mL) 1100 mL Transfusion No data found. Output: Estimated Blood Loss: 50 mL Urine Output:: 1100 mL Other Output: (no other output recorded) Drains: 14F scott with 10cc sterile water Specimens removed during surgery: Order Name Source Comment Collection Info Order Time SPECIMEN TO PATHOLOGY LEFT ATROPHIC KIDNEY/ PAIN Left Kidney excision No 08/21/2018 6:05 PM Time specimen removed from patient: 6:03 PM Disposition: awakened from anesthesia, extubated and taken to the recovery room in a stable condition, having suffered no apparent untoward event. Condition: doing well without problems Indication: Paz Phillips is a 77 y.o. female w/ hx of IBS, GERD, and urolithiasis/recurrent infection w/ left ureteral stricture/hydronephrosis in context of atrophic left kidney; this has been causing her intermittent left sided flank pain. She presents today for left laparoscopic nephrectomy. Procedure: The patient was identified in the pre-operative holding area. Consent was verified. The correct sideof the procedure was marked. The patient was taken to the operating room and placed supine on the operating table. General anesthesia was induced, prophylactic IV antibiotics were infused consisting ofKefzol and Gentamicin, veno dynes were placed, and subcutaneous heparin was administered for DVT prophylaxis. A 14 F urethral catheter was inserted with return of clear urine and 10cc sterile water instilled in the balloon. The patient was then moved to the right lateral decubitus position with the LEFT side up. The patient was secured with the assistance of a guidry bag ensuring all pressure points were appropriately padded. The patient was prepped and draped in the usual sterile fashion. A timeout was performed involving all members of the OR team confirming the patient's identity, planned procedure, and laterality. ?? A 7cm periumbilical midline incision was made using a #15blade This was carried down to the level ofthe rectus fascia using Bovie electrocautery. The linea alba was identified and incised with electrocautery. The peritoneum was identified and incised sharply allowing entry into the abdomen. The incision was extended through the fascia to allow for passage of a hand. The hand assist port was placed. The abdomen was Insufflated to 15mmHg via a 11mm blunt trocar placed through the hand port . Minimal adhesions were noted between the bowel and the anterior abdominal wall. A 12 mm port was lateral to the hand port at the level of the anterior to the anterior iliac spine at the mid-clavicular line under direct vision w/ the 30 degree 10mm lens through the hand port trocar. Two additional ports were placed, an 11mm port at the mid-clavicular line approximately 2cm caudal to the costal margin and a second approximately 6cm below and lateral to the hand assist port. Using a combination of blunt and sharp dissection, the thin adhesions between the abdominal sidewalland the abdominal contents were taken down. Thicker adhesions were taken down with the Harmonic scalpel. Using the Harmonic scalpel for the remainder of the procedure, the LEFT colon was mobilized fromthe LEFT abdominal wall following the line of Toldt towards the pelvis. The colon was then graduallyreflected medially and protected during the rest of the procedure. The LEFT ureter was identified and noted to be quite dilated and tortuous. This was dissected from the peritoneum revealing the gonadal vein. Given the size of the kidney and ureter, a fourth 5mm assistant editor port was place 1cm lateral and superior to the left lower quadrant port to allow for a Amado to assist in retraction. The gonadalvein was then dissected to the level of the hilum. The psoas was identified and the posterior renal attachments released. Given the size of the kidney the decision was made to partially transect the ureter to decompress the renal pelvis with suction to enable safe dissection of the hilum and splenorenal attachments. His released clear fluid. Once the kidney and ureter were suspended, the hilar vessels were identified and noted to have one renal artery and vein. The renal artery was taken with a 35mm vascular staple load. The renal vein wassimilarly taken with a 35mm vascular stapler proximal to the branching of the gonadal vein. The gonadal vein was identified and taken with a 35mm vascular staple load. The remaining splenorenal attachments were then taken with harmonic scalpel A flexible ureteroscope was then guided into the distal ureter with the aid of the surgeon's hand under direct visualization. Antegrade ureteroscopy was performed and some debris was liberated. No mobile stone was definitively seen, though visualization was limited. The distal ureter was completely obliterated with densely impacted calcified fragments. These were unable to be manipulated or retrievedwith a basket, nor allow antegrade passage of scope or wire. The ureteral transection was completed with the Harmonic scalpel and the left open. ?? Once free of attachments, the kidney was removed via the hand assist port and sent to pathology as specimen. The pelvis and left sidewall were liberally irrigated. Bipolar cautery was used to ensure hemostasis. No active or significant hemorrhage was noted. Floseal was placed under the spleen near the hilum and posterior wall. The colon was replaced in its anatomic position. There were no obvious bowel or mesenteric defects. A Jonathon Tompson was used to close all 12mm ports with 2-0 vicryl under direct vision. All laparoscopic ports were removed under direct visualization. The midline hand port incision fascia was closed w/ interrupted figure of 8 interrupted 1-0 prolene. The subcutaneous tissue was then re-approximated with 2-0 monocryl. Finally, 4-0 mnocryl running subcuticular running stitches were used to close the skin for the midline incision and all port sites. Dermabond glue was applied to all incisions. The patient tolerated the procedure well and was awakened from anesthesia with no adverse events. A sponge and instrument count was performed and the counts were correct. The patient was awakened, extubated, and taken to the recovery area in stable condition. Dr. Velazquez, the attending surgeon, was present for the entire procedure. Attestation: Case Date: 08/21/2018 - 08/22/2018 I was present and I participated during the entire procedure (does not need to include opening and closing). Romi Velazquez MD 08/22/2018 Plan of Care - Alicia Muller RN - 08/22/2018 3:39 AM EDT OUTCOME EVALUATION NOTE: OUTCOME SUMMARY: No acute events this shift. Admitted to unit at 0245. A&Ox4. Rates pain between 0-2/10, treated w/ scheduled tylenol. Adequate UOP via scott. PLAN MOVING FORWARD: Potential DC today or tomorrow. LR@100ml/hr. Mobilize. Continue to monitor pain, labs, and 1&O. Notify MDs as necessary for pertinent pt condition changes. INDIVIDUALIZED FALL PREVENTION INTERVENTIONS: Patient-specific fall risk factors per assessment: [current deficits]: Age, POD#0, high-risk fall meds Assistance [level of assistance required for transfers and ambulation]: Ax1 w/ walker Supervision [direct monitoring required during toileting and ADLs]: Hands on Surveillance [continuous indirect monitoring]: Purposeful hourly rounding, assistive device, bed/chair alarm, environmental modifications (waste basket is out of the path and the IV tubing and cords are free from the floor), door open throughout shift, lighting adjusted for task/safety, bed in low position, wheels locked, side rails up (x2), nonskid socks worn OOB, [place] ID band on, no restraints, and call light is within reach at all times Patient-specific fall prevention interventions for sensory deficits provided, if applicable: Yes pt wears glasses CPG GOAL OUTCOME EVALUATION: Problem: Patient Care Overview Goal: Plan of Care Review Outcome: Ongoing (Interventions Implemented as Appropriate) 08/22/18 030 Coping/Psychosocial Plan Of Care Reviewed With patient Goal: Fall Prevention-Safe Patient Handling Outcome: Ongoing (Interventions Implemented as Appropriate) 08/22/18 0248 Briggs Fall Risk History of Falling 0 Secondary Diagnosis 15 Ambulatory Aids 15 Intravenous Therapy/Heparin/Saline Lock 20 Gait/Transferring 10 Mental Status 0 Score 60 OTHER Briggs Fall Risk High Restraint Interventions Safety Promotion/Fall Prevention activity supervised;nonskid shoes/slippers when out of bed;fall prevention program maintained;safety round/check completed Positioning Body Position independent Activity Activity Type activity adjusted per tolerance Activity Assistance Provided assistance, 1 person Assistive Device Utilized front-wheel walker Goal: Infection Control Outcome: Ongoing (Interventions Implemented as Appropriate) 08/22/18 0248 08/22/18 0300 Safety Interventions Isolation Precautions standard precautions maintained -- Infection Prevention rest/sleep promoted;environmental surveillance performed;single patient room provided -- Coping Strategies Supportive Measures -- decision-making supported;goal setting facilitated;relaxation techniques promoted;self-care encouraged Brief Op Note - Tracie Angela MD - 08/21/2018 7:07 PM EDT Brief Operative Note Patient Name: Paz Phillips : [id number] MR#: [id number] Case Date: 08/21/2018 Surgeon: Surgeon(s) and Role: * Romi Velazquez MD - Primary * Tracie Angela MD - Resident * Khari Lemus MD - Assisting Attending Preoperative diagnosis: LEFT ATROPHIC KIDNEY/ PAIN Postoperative diagnosis: LEFT ATROPHIC KIDNEY/ PAIN Procedure(s) (LRB): @LAPAROSCOPY, RADICAL NEPHRECTOMY (WRVU 25.06) (Left) Anesthesia: General Findings: -Dilated left atrophic kidney -Single left artery and vein -Antegrade ureteroscopy with calcified debris cleared out, completely obliterated distal ureter without mobile stone identified Complications: none Intake: Intraprocedure Crystalloid Total Lactated Ringers Volume (mL) 1700 mL Sodium Chloride 0.9% Volume (mL) 1100 mL Transfusion No data found. Output: Estimated Blood Loss: 50 mL Urine Output:: 1100 mL Other Output: (no other output recorded) Drains: 14F scott with 10cc sterile water Specimens removed during surgery: Order Name Source Comment Collection Info Order Time SPECIMEN TO PATHOLOGY LEFT ATROPHIC KIDNEY/ PAIN Left Kidney excision No 08/21/2018 6:05 PM Time specimen removed from patient: 6:03 PM Disposition: awakened from anesthesia, extubated and taken to the recovery room in a stable condition, having suffered no apparent untoward event. Condition: doing well without problems Attestation: Case Date: 08/21/2018 I was present and I participated during the entire procedure (does not need to include opening and closing). (Please see the Surgical Encounter Summary for any Implant and Specimen details pertinent to this patient.) PLAN: - pain mgmt - Scott out AM - bro-op ancef/gent x24 hr, transition to Keflex 500mg QID for 5 days - clears, ADAT - f/u 2 weeks (requested) Associated attestation - Romi Velazquez MD - 08/22/2018 12:18 PM EDT Attestation: Case Date: 08/21/2018 - 08/22/2018 I was present and I participated during the entire procedure (does not need to include opening and closing). Romi Velazquez MD 08/22/2018 documented in this encounter Plan of Treatment Not on filedocumented as of this encounter Procedures Procedure Name Priority Date/Time Associated Comments Diagnosis HEMOGRAM Routine 08/22/2018 1:24 AM Results f or this EDT procedure are i n the results section. DIFFERENTIAL, Routine 08/22/2018 1:24 AM Results for this AUTOMATED EDT procedure are i n the results section. CREATININE Routine 08/22/2018 1:24 AM Results f or this EDT procedure are i n the results section. CBC (WITH DIFF) Routine 08/22/2018 1:24 AM EDT BUN Routine 08/22/2018 1:24 AM Results f or this EDT procedure are i n the results section. ELECTROLYTES PANEL Routine 08/22/2018 1:24 AM Res ults for this EDT procedure are i n the results section. HEMOGRAM Routine 08/21/2018 8:06 PM Results f or this EDT procedure are i n the results section. DIFFERENTIAL, Routine 08/21/2018 8:06 PM Results for this AUTOMATED EDT procedure are i n the results section. CBC (WITH DIFF) Routine 08/21/2018 8:06 PM EDT BASIC METABOLIC PANEL Routine 08/21/2018 8:06 PM Results for this (NON-FASTING) EDT procedure are in the results section. SPECIMEN TO PATHOLOGY Routine 08/21/2018 6:05 PM Results for this EDT procedure are i n the results section. SURGICAL PATHOLOGY Routine 08/21/2018 6:03 PM Res ults for this REPORT EDT procedure are i n the results section. BLOOD GAS 2 ARTERIAL Routine 08/21/2018 2:45 PM R esults for this EDT procedure are i n the results section. @LAPAROSCOPY, RADICAL Yes 08/21/2018 1:07 PM LEFT ATROPHIC NEPHRECTOMY (WRVU EDT KIDNEY/ PAIN 25.06) documented in this encounter Results (ABNORMAL) Differential, Automated (08/22/2018 1:24 AM EDT) [facility] Method Time Signature Neutrophils % 94.9 % [facility] Neutr Abs (ANC) 13.32 (H) 1.70 - [facility] 6.10 [facility] x10(3)/[facility] L LABORATORY Lymphocytes % 1.7 % [facility] Lymphocytes Abs 0.2 (L) 0.9 - 3.2 [facility] x10(3)/[facility] LABORATORY Monocytes % 3.1 % [facility] Monocyte Abs 0.4 0.3 - 0.9 [facility] x10(3)/[facility] LABORATORY Eosinophils % 0.0 % [facility] Eosinophils Abs 0.0 0.0 - 0.4 [facility] x10(3)/[facility] LABORATORY Basophils % 0.1 % [facility] Basophils Abs 0.0 0.0 - 0.1 [facility] x10(3)/[facility] LABORATORY Immature Gran % 0.20 % [facility] Comment: Immature granulocytes(IG's)percentage an d absolute count will include metamyelocytes, myelocytes, and promyelo cytes. Blood smears from CBCs yielding IG's will be scanned manually for concor dance. If this scan disagrees with the automated IG or if promyelocytes are not ed, a manual differential will be performed. Deann Gran Abs 0.03 0.00 - 0.04 x10(3)/[facility] Specimen Anatomical Collection Method Collection Time Receive d Time (Source) Location / / Volume Laterality Blood specimen 08/22/2018 1:24 AM 019 1:33 (specimen) EDT AM EDT Resulting Agency Comment Spec In Lab Tracie Angela MD HEMATOLOGY ORDERABLES Performing Organization Address City/State/[place] [address] (ABNORMAL) Hemogram (08/22/2018 1:24 AM EDT) Analysis Performed At Patho logist Time Signature WBC 14.0 (H) 4.0 - 9.5 [facility] x10(3)/[facility] LABORATORY RBC 4.55 4.00 - [facility] 5.21 [facility] x10(6)/[facility] LABORATORY Hemoglobin 13.3 11.7 - [place] 15.5 gm/dL [facility] Hematocrit 41.9 35.7 - [place] 45.8 % [facility] MCV 92.1 82.6 - [facility] 94[facility]4 [facility] LABORATORY MCH 29.2 27.1 - [place] 32.0 pg [facility] MCHC 31.7 31.7 - [place] 35.0 gm/dL [facility] Platelets 164 145 - 357 [place] x10(3)/[facility] LABORATORY RDWSD 48.4 (H) 37.0 - [place] 46.0 [facility] LABORATORY RDWCV 14.3 (H) 11.5 - [place] 14.1 % [facility] LAB[facility] MPV 11.2 7.6 - 12.9 [place] [place] [facility] LABORATORY nRBC % Auto 0.0 % [facility] nRBC Abs Auto 0.000 0.000 - [place] 0.000 [facility] x10(3)/[facility] LABORATORY Specimen Anatomical Collection Method Collection Time Receive d Time (Source) Location / / Volume Laterality Blood specimen 08/22/2018 1:24 AM 019 1:33 (specimen) EDT AM EDT Resulting Agency Comment Spec In Lab Tracie Angela MD HEMATOLOGY ORDERABLES Performing Organization Address City/State/ZIP Code Phon e Number [place] [id number] (ABNORMAL) Creatinine (08/22/2018 1:24 AM EDT) P athologist Signature Creatinine 0.97 0.70 - [place] 1.20 mg/dL [facility] Estimated GFR 57 (L) >=60 [place] [place] mL/min/1.7 [facility] 3 ? HOSPITAL LABORATORY Comment: The eGFR was calculated using the CKD-EP I equation. As with all creatinine based estimates of kidney function, eGFR values calculated with the CKD-EPI equation are not accurate in patients wi th acute kidney failure, extremes of body mass or the acutely ill. [email or web address] eGFR 66 >=60 mL/min/1.73 m?? [facility] Comment: The eGFR was calculated using the CKD-EP I equation. As with all creatinine based estimates of kidney function, eGFR values calculated with the CKD-EPI equation are not accurate in patients wi th acute kidney failure, extremes of body mass or the acutely ill. [email or web address] Specimen Anatomical Collection Method Collection Time Receive d Time (Source) Location / / Volume Laterality Blood specimen 08/22/2018 1:24 AM 019 1:33 (specimen) EDT AM EDT Resulting Agency Comment Spec In Lab Romi Velazquez MD CHEMISTRY ORDERABLES Performing Organization Address City/[facility]/ZIP Code Phon e Number [address] BUN (08/22/2018 1:24 AM EDT) P athologist Signature BUN 9 8 - 18 [facility] mg/dL [facility] LAB[facility] Specimen Anatomical Collection Method Collection Time Receive d Time (Source) Location / / Volume Laterality Blood specimen 08/22/2018 1:24 AM 019 1:33 (specimen) EDT AM EDT Resulting Agency Comment Spec In Lab Romi Velazquez MD CHEMISTRY ORDERABLES Performing Organization Address City/[facility] [place] [address] (ABNORMAL) Electrolytes panel (08/22/2018 1:24 AM EDT) athologist Signature Sodium 140 135 - 145 [facility] mmol/L [facility] Potassium 4.4 3.5 - 5.0 [facility] mmol/L [facility] Comment: Please note: ??Patients with WBC >100,00 0 may have falsely elevated Potassium levels. ??For accurate Potassium quantif ication in these patients send serum separator tube (gold top) for subsequent determinations. ??Contact the Clinical Chemistry Laboratory if there are any qu estions. Chloride 106 98 - 107 mmol/L [facility] CO2 21 (L) 22 - 31 mmol/L [facility] Anion Gap 13 5 - 15 mmol/L [facility] Specimen Anatomical Collection Method Collection Time Receive d Time (Source) Location / / Volume Laterality Blood specimen 08/22/2018 1:24 AM 019 1:33 (specimen) EDT AM EDT Resulting Agency Comment Spec In Lab Romi Velazquez MD CHEMISTRY ORDERABLES Performing Organization Address City/State/[place] [address] (ABNORMAL) Differential, Automated (08/21/2018 8:06 PM EDT) [facility] Method Time Signature Neutrophils % 93.8 % [facility] Neutr Abs (ANC) 13.01 (H) 1.70 - [facility] 6.10 [facility] x10(3)/[facility] LABORATORY Lymphocytes % 2.6 % [facility] Lymphocytes Abs 0.4 (L) 0.9 - 3.2 [facility] x10(3)/[facility] LABORATORY Monocytes % 3.0 % [facility] Monocyte Abs 0.4 0.3 - 0.9 [facility] x10(3)/[facility] LABORATORY Eosinophils % 0.0 % [facility] Eosinophils Abs 0.0 0.0 - 0.4 [facility] x10(3)/[facility] LABORATORY Basophils % 0.2 % [facility] Basophils Abs 0.0 0.0 - 0.1 [facility] x10(3)/[facility] LABORATORY Immature Gran % 0.40 % [facility] Comment: Immature granulocytes(IG's)percentage an d absolute count will include metamyelocytes, myelocytes, and promyelo cytes. Blood smears from CBCs yielding IG's will be scanned manually for concor dance. If this scan disagrees with the automated IG or if promyelocytes are not ed, a manual differential will be performed. Deann Gran Abs 0.05 (H) 0.00 - 0.04 x10(3)/[facility] LABORATORY Specimen Anatomical Collection Method Collection Time Receive d Time (Source) Location / / Volume Laterality Blood specimen 08/21/2018 8:06 PM 019 8:15 (specimen) EDT PM EDT Resulting Agency Comment Spec In Lab Tracie Angela MD HEMATOLOGY ORDERABLES Performing Organization Address City/State/[place] [address] (ABNORMAL) Hemogram (08/21/2018 8:06 PM EDT) Analysis Performed At Patho logist Time Signature WBC 13.9 (H) 4.0 - 9.5 [facility] x10(3)/[facility] LABORATORY RBC 4.68 4.00 - [place] 5.21 [facility] x10(6)/[facility] LABORATORY Hemoglobin 13.4 11.7 - [facility] 15.5 gm/dL [facility] LAB[facility] Hematocrit 43.4 35.7 - [facility] 45.8 % [facility] MCV 92.7 82.6 - [facility] 94.4 [facility] LABORATORY MCH 28.6 27.1 - [place] [place] 32.0 pg [facility] LAB[facility]ORY MCHC 30.9 (L) 31.7 - [place] 35.0 gm/dL [facility] LAB[facility] Platelets 169 145 - 357 [facility] x10(3)/[facility] LABORATORY RDWSD 47.7 (H) 37.0 - [facility] YANELIS 46.0 [facility] LABORATORY RDWCV 14.0 11.5 - [place] [facility] 14.1 % [facility] [facility] LAB[facility]ATORY MPV 11.4 7.6 - 12.9 [facility]ATORY nRBC % Auto 0.0 % [facility] LABORATORY nRBC Abs Auto 0.000 0.000 - [facility] YANELIS 0.000 [facility] x10(3)/[facility] LABORATORY Specimen Anatomical Collection Method Collection Time Receive d Time (Source) Location / / Volume Laterality Blood specimen 08/21/2018 8:06 PM 019 8:15 (specimen) EDT PM EDT Resulting Agency Comment Spec In Lab Tracie Angela MD HEMATOLOGY ORDERABLES Performing Organization Address City/State/[place] [address] (ABNORMAL) Basic Metabolic Panel (non-fasting) (08/21/2018 8:06 PM EDT) P athologist Signature Glucose Lvl 167 65 - 199 [facility] mg/dL [facility] LABORATORY Comment: Diabetes: >=200 mg/dL plus symp toms BUN 9 8 - 18 mg/dL [facility] LABORATORY Creatinine 0.99 0.70 - 1.20 mg/dL [facility] LABOR[facility]ORY Sodium 143 135 - 145 mmol/L [facility]OR[facility] Potassium 3.9 3.5 - 5.0 mmol/L [facility] LABOR[facility]ORY Comment: Please note: ??Patients with WBC >100,00 0 may have falsely elevated Potassium levels. ??For accurate Potassium quantif ication in these patients send serum separator tube (gold top) for subsequent determinations. ??Contact the Clinical Chemistry Laboratory if there are any qu estions. Chloride 109 (H) 98 - 107 mmol/L [facility] CO2 21 (L) 22 - 31 mmol/L [facility] Anion Gap 13 5 - 15 mmol/L [facility] Calcium 8.3 (L) 8.5 - 10.5 mg/dL [facility] LAB[facility]ORY Estimated GFR 56 (L) >=60 mL/min/1.73 m?? [facility] Comment: The eGFR was calculated using the CKD-EP I equation. As with all creatinine based estimates of kidney function, eGFR values calculated with the CKD-EPI equation are not accurate in patients wi th acute kidney failure, extremes of body mass or the acutely ill. [email or web address] eGFR 65 >=60 mL/min/1.73 m?? [facility] Comment: The eGFR was calculated using the CKD-EP I equation. As with all creatinine based estimates of kidney function, eGFR values calculated with the CKD-EPI equation are not accurate in patients wi th acute kidney failure, extremes of body mass or the acutely ill. [email or web address] Specimen Anatomical Collection Method Collection Time Receive d Time (Source) Location / / Volume Laterality Blood specimen 08/21/2018 8:06 PM 019 8:15 (specimen) EDT PM EDT Resulting Agency Comment Spec In Lab Romi Velazquez MD CHEMISTRY ORDERABLES Performing Organization Address City/[facility]/[place] [address] Specimen to Pathology (08/21/2018 6:05 PM EDT) Specimen Anatomical Collection Method Collection Time Receive d Time (Source) Location / / Volume Laterality AP Specimen 08/21/2018 6:05 PM 201 9 6:05 EDT PM EDT Narrative [facility] ORY - 08/21/2018 6:05 PM EDT Specimen requisition ordered. ??Separate Pathology report to follow Romi Velazquez MD PATHOLOGY/CYTOLOGY ORDERABLE S Performing Organization Address City/[facility]/[place] [address] Surgical Pathology Report (08/21/2018 6:03 PM EDT) Component Value Ref Test Analysis Performed At [facility] Range Method Time Signature Surgical [id number] ? Location: 2WST; 0211; [facility] Report The signing pathologist has (i) examined the relevant preparation(s) for the [facility] specimen(s) and (ii) rendered or confirmed the diagnosis(es) . HOSPITAL LABORATORY . ?Surgic al Pathology DIAGNOSIS Left kidney (nephrectomy): ?? 1. Hydronephrosis. ?? 2. Renocortical atrophy and chronic pyelonephritis. ?? 3. No evidence of malignancy. CR-0 Electronically signed by: ??Kev Zafar MD Verified: ??08/25/2018 ?Pathologist Performed at: ??-[facility] Dept. of Pathology, [place], [place] CLINICAL INFORMATION Specimen Submitted: A - Left kidney Clinical History and Diagnosis: Left atrophic kidney/pain SPECIMEN PROCESSING A - Labeled/Fixative: Left kidney, fresh. Quantity/Size: Single, 11.5 x 7.5 x 3.5 cm (overall), 146.4 grams. Tissue Description: Intact, extensively dilated and distorted kidney which on sectioning contains clear serous fluid. Parenchyma: No normal renal parenchyma i s identified. The peripheral tissue is collapsed, fibrotic and are as are attenuated displaying a smooth lined cyst wall. Pneumatic Tester Mechanic sections in 4 cassettes as follows: ?A1: Vascular and ureteral margins ?A2-A4: Cyst wall and possible parenchyma ejr Specimen (Source) Anatomical Collection Method Collection Time Re ceived Time Location / / Volume Laterality 08/21/2018 6:03 PM EDT Romi Velazquez MD PATHOLOGY/CYTOLOGY ORDERABLE S Performing Organization Address City/State/[place] [address] (ABNORMAL) BLOOD GAS 2 ARTERIAL (08/21/2018 2:45 PM EDT) Analysis Performed At Patho logist Time Signature pH Art 7.40 7.35 - [facility] 7.45 [facility] LABOR[facility]ORY pCO2 Art 34 (L) 35 - 45 [facility] mmHg [facility] LAB[facility]ORY pO2 Art 270 (H) 85 - 104 [facility] LABORATORY HCO3 Art 20.7 20.0 - [facility] 26.0 [facility] mmol/L [facility] LABORATORY BE Art -4.0 (L) -3.0 - 3.0 [facility] mmol/L [facility] LAB[facility] Hgb Blood Gas 13.7 11.7 - [facility] 15.5 gm/dL [facility] O2HB Art 99.0 (H) 94.0 - [facility] 97.0 % [facility] LABORATORY COHB Art 0.5 % [facility] Comment: Nonsmokers: 0.5-1.5% COHB Smokers: Variable, but usually less than 10% Toxic: 20-30% COHB Lethal: Greater than 60% COHB METHB Art 0.1 <=1.5 % [facility] LABORATORY Na Whole Blood 140 135 - 145 mmol/L [facility] K Whole Blood 3.3 (L) 3.5 - 5.0 mmol/L [facility] LABORATORY Comment: Please note: Patients with WBC >100,000 may have falsely elevated Potassium levels. Contact the Clinical Chemistry L aboratory if there are any questions. ICa Whole Blood 1.14 (L) 1.15 - 1.33 mmol/L [facility] Comment: Note: ??Total bilirubin higher than 20 m g/dL may lead to falsely low ionized calcium. CL Whole Blood 108 (H) 98 - 107 mmol/L [facility] LABOR[facility] Gluc Whole Bld 133 65 - 199 mg/dL [facility] Comment: Diabetes: >=200 mg/dL plus symp toms. Lactate WB 1.3 0.5 - 2.2 mmol/L [facility] LABOR[facility] FIO2 Art 56 % [facility] LAB[facility] PF Ratio Art 482 [facility] LABOR[facility]ORY Specimen Anatomical Collection Method Collection Time Receive d Time (Source) Location / / Volume Laterality Blood specimen 08/21/2018 2:45 PM 019 2:45 (specimen) EDT PM EDT Romi Velazquez MD CHEMISTRY ORDERABLES Performing Organization Address City/State/[place] [address] documented in this encounter Visit Diagnoses Diagnosis Atrophic kidney Renal sclerosis, unspecified documented in this encounter Admitting Diagnoses Diagnosis Atrophic kidney Renal sclerosis, unspecified documented in this encounter Administered Medications Inactive Administered Medications - up to 3 most recent administrations Medication Order MAR Action Action Date Dose Rate Site acetaminophen (TYLENOL) tablet Given 08/21/2018 11:00 AM EDT 1,0 00 mg 1,000 mg 1,000 mg, Oral, ONCE, 1 dose, On Fri08/21/18 at 1100, Administer with SIP of H2O only., Day of Surgery (Day of Procedure), Routine acetaminophen (TYLENOL) tablet 1,000 mg Given 08/22/2018 11:57 AM EDT 1,000 mg 1,000 mg, Oral, EVERY 6 HOURS SCHEDULED, First dose on Fri08/21/18 at 2030, Until Discontinued, Do not exceed 4,000 mg in 24 hours, Routine Given 08/22/2018 5:56 AM EDT 1,000 mg Given 08/21/2018 11:51 PM EDT 1,000 mg ceFAZolin (ANCEF) 1g in dextrose 5% New Bag 08/22/2018 9:49 AM EDT 1 g 100 mL/hr 50mL 1 g, Intravenous, EVERY 8 HOURS, 2 doses, First dose on Fri08/22/18 at 0100, Last dose on Fri08/22/18 at 0900, Administer over 30 Minutes, Indication for (Active or Suspected): Prophylaxis New Bag 08/22/2018 1:28 AM EDT 1 g 100 mL/hr cephALEXin (KEFLEX) capsule 250 mg 250 mg, Oral, EVERY 6 HOURS SCHEDULED, F irst dose (after last modification) on Fri08/22/18 at 1800, Until Discontinued, Rout ine, Indication for (Active or Suspected): Prophylaxis docusate sodium (COLACE) capsule 100 mg Given 08/22/2018 9:44 AM EDT 100 mg 100 mg, Oral, 2 TIMES DAILY, First dose on Fri08/21/18 at 2200, Until Discontinued, Routine Given 08/21/2018 9:44 PM EDT 100 mg fentaNYL (PF) 50mcg/mL injection Given 08/21/2018 8:45 PM EDT 25 mcg 12.5-25 mcg, Intravenous, EVERY 5 MIN PRN, Starting on Fri08/21/18 at 1826, Until Fri08/21/18 at 2330, Pain, Give 12.5 mcg every 5 minutes PRN for mild to moderate pain (1-5) Give 25 mcg every 5 minutes PRN for moderate to severe pain (6-10). Hold for respiratory rate less than 10 per minute. Maximum dose 250 mcg over one hour. If ordered with hydromorphone or morphine, give hydromorphone or morphine first and use fentanyl for breakthrough pain., PACU Recovery, Routine gentamicin 80 mg in sodium chloride New Bag 08/21/2018 10:05 P M EDT 80 mg 100 mL/hr 0.9% 100mL 80 mg, Intravenous, EVERY 8 HOURS, 1 dose, First dose on Fri08/21/18 at 2030, Administer over 60 Minutes, This medication may have an associated drug lab level. Please check for lab orders. Warning Vesicant/Irritant Medication , Indication for (Active or Suspected): Prophylaxis HYDROmorphone (DILAUDID) injection 0.2-0 .4 mg Given 08/21/2018 8:50 PM EDT 0.4 mg 0.2-0.4 mg, Intravenous, EVERY 5 MIN PRN, Starting on Fri08/21/18 at 1826, Until Fri08/21/18 at 2330, Pain, Give 0.2 mg every 5 minutes PRN for mild to moderate pain (1-5) Give 0.4 mg every 5 minutes PRN for moderate to severe pain (6-10). Hold for respiratory rate less than 10 per minute. Maximum dose 4 mg over one hour. If multiple pain medications are ordered, start with hydromorphone or morphine and use fentanyl for breakthrough pain., PACU Recovery, Routine Given 08/21/2018 8:45 PM EDT 0.4 mg lactated ringers infusion New Bag 08/21/2018 9:59 PM EDT 1,000 mLs 100 mL/hr 1,000 mL, at 100 mL/hr, Intravenous, CONTINUOUS, Starting on Fri08/21/18 at 1100, Until Fri08/21/18 at 2330, Day of Surgery (Day of Procedure) New Bag 08/21/2018 11:00 AM EDT 1,000 mLs 100 mL/hr lactated ringers infusion New Bag 08/22/2018 9:43 AM EDT 100 mL/hr 100 mL/hr 100 mL/hr, Intravenous, CONTINUOUS, Starting on 08/22/18 at 0200, Until Fri08/22/18 at 1839 Rate/Dose Verify 08/22/2018 5:00 AM EDT 100 mL/hr 100 mL/hr New Bag 08/21/2018 11:30 PM EDT 100 mL/hr 100 mL/hr lidocaine (XYLOCAINE) 10 mg/mL (1 %) injection Given 0 08/21/2018 11:15 AM EDT 3 mg 3 mg 3 mg (0.3 mL), Subcutaneous, ONCE PRN, 1 dose, Starting on Fri08/21/18 at 1031, Until Fri08/21/18 at 1115, for discomfort with PIV insertion, Day of Surgery (Day of Procedure), Routine ondansetron (ZOFRAN) tablet 4 mg Given 08/22/2018 4:08 PM EDT 4 mg 4 mg, Oral, ONCE, 1 dose, On 08/22/18 at 1615, Routine oxyCODONE (ROXICODONE) immediate release tablet 10-15 mg 10-15 mg, Oral, EVERY 4 HOURS PRN, Start ing on Fri08/21/18 at 2002, Until 08/22/18 at 1839, Pain, severe pain (7-10), Initi al dose 10mg. If pain control not adequate in 60 minutes, give additional 5mg, Routine oxyCODONE (ROXICODONE) immediate release tablet Given 08/22/2018 4:08 PM EDT 5 mg 5-10 mg 5-10 mg, Oral, EVERY 4 HOURS PRN, Starting on Fri08/21/18 at 2002, Until 08/22/18 at 1839, Pain, moderate pain (4-6), Initial dose 5mg. If pain control not adequate in 60 minutes, give additional 5mg, Routine sodium chloride 0.9 % (flush) flush 5 mL Given 08/22/2018 9:50 AM EDT 5 mLs 5 mL, Intravenous, 2 TIMES DAILY, First dose on Fri08/21/18 at 2100, Until Discontinued, Recovery (Recovery-Hospital Unit), Routine Given 08/21/2018 8:57 PM EDT 5 mLs documented in this encounter Active and Recently Administered Medications Times are shown in EDT. Scheduled Medication Order 08/20/2018 08/21/2018 08/22/2018 acetaminophen (TYLENOL) tablet 1,000 mg (COMPLETED) 1100 (Given - Provider: Trent See RN) 1,000 mg, Oral, ONCE, 1 dose, Fri08/21/18 at 1100, Administer with SIP of H2O only., Day of Surgery (Day of Procedure), Routine acetaminophen (TYLENOL) tablet 1,000 mg 2029 (Not Given - Provider: Rosi Ceja RN - Reason: See comment - Comment: patient refused at this time)0825 (Given - Provider: Monserrat Greene, CLEMENT) 0556 (Given - Provider: Alicia Muller RN)1157 (Given - Provider: Rachel Dutton RN) 1,000 mg, Oral, EVERY 6 HOURS SCHEDULED, First dose on Fri08/21/18 at 2030, Until Discontinued, Do not exceed 4,000 mg in 24 hours, Routine ceFAZolin (ANCEF) 1g in dextrose 5% 50mL (COMPLETED) 0128 (New Bag - Provider: Monserrat Greene RN)0158 (Stopped - Provider: Monserrat Greene RN)0949 (New Bag - Provider: Rachel Dutton, RN)1019 (Stopped - Provider: Rachel Dutton, RN) 1 g, Intravenous, EVERY 8 HOURS, 2 doses , First dose on Fri08/22/18 at 0100, Last dose on Fri08/22/18 at 0900, Administer over 30 Minutes, Indication for (Active or Suspected): Prophylaxis cephALEXin (KEFLEX) capsule 250 mg 250 mg, Oral, EVERY 6 HOURS SCHEDULED, F irst dose on Fri08/22/18 at 1800, Until Discontinued, Routine docusate sodium (COLACE) capsule 100 mg 214 (Given - Provider: Rosi Ceja, RN) 0944 (Given - Provider: Rachel Dutton , CLEMENT) 100 mg, Oral, 2 TIMES DAILY, First dose on Fri08/21/18 at 2200, Until Discontinued, Routine gentamicin 80 mg in sodium chloride 0.9% 100mL (COMPLETED) 2204 (New Bag - Provider: Rosi Ceja, CLEMENT)2305 (Stopped - Provider: Monserrat Greene RN) 80 mg, Intravenous, EVERY 8 HOURS, 1 dos e, First dose on Fri08/21/18 at 2030, Administer over 60 Minutes, This medication may have an associated drug lab level. Please check for lab orders. Warning Ve sicant/Irritant Medication , Indicati on for (Active or Suspected): Prophylaxis ondansetron (ZOFRAN) tablet 4 mg (COMPLETED) 1608 (Given - Provider: Rachel Dutton, CLEMENT) 4 mg, Oral, ONCE, 1 dose, On Fri08/22/18 at 1615, Routine sodium chloride 0.9 % (flush) flush 5 mL 205 (Given - Provider: Rosi Ceja, CLEMENT) 0950 (Given - Provider: Rachel Dutton , RN) 5 mL, Intravenous, 2 TIMES DAILY, First dose on Fri08/21/18 at 2100, Until Discontinued, Recovery (Recovery-Hospital Unit), Routine Continuous Medication Order 08/20/2018 08/21/2018 08/22/2018 lactated ringers infusion (CANCELED) 110 0 (New Bag - Provider: Trent See RN)2159 (New Bag - Provider: Rosi Ceja RN) 1,000 mL, at 100 mL/hr, Intravenous, CON TINUOUS, Starting Fri08/21/18 at 1100, Until Fri08/21/18 at 2330, Day of Surgery (Day of Procedure) lactated ringers infusion 2330 (New Bag - Provid er: Monserrat Greene RN) 0500 (Rate/Dose Verify - Provider: Alicia Muller RN)0943 (New Bag - Provider: Rachel Dutton RN) 100 mL/hr, at 100 mL/hr, Intravenous, CO NTINUOUS, Starting 08/22/18 at 0200, Until 08/22/18 at 1839 PRN Medication Order 08/20/2018 08/21/2018 08/22/2018 fentaNYL (PF) 50mcg/mL injection (CANCELED) 2044 (Given - Provider: Rosi Ceja RN) 12.5-25 mcg, Intravenous, EVERY 5 MIN MO N, Starting Fri08/21/18 at 1826, Until Fri08/21/18 at 2330, Pain, Give 12.5 mcg every 5 minutes PRN for mild to moderate pain (1-5) Give 25 mcg every 5 minutes PRN for moderate to severe pain (6-10). Hold for respiratory rate less than 10 per minute. Maximum dose 250 mcg over one hour. If ordered with hydromorphone or morphine, give hydromorphone or morphine first and use fentanyl for breakthrough pain., PACU Recovery, Routine HYDROmorphone (DILAUDID) injection 0.2-0.4 mg (CANCELED) 2044 (Given - Provider: Rosi Ceja RN)2049 (Given - Provider: Rosi Ceja RN) 0.2-0.4 mg, Intravenous, EVERY 5 MIN PRN , Starting Fri08/21/18 at 1826, Until Fri08/21/18 at 2330, Pain, Give 0.2 mg every 5 minutes PRN for mild to moderate pain (1-5) Give 0.4 mg every 5 minutes PRN for moderate to severe pain (6-10). Hold fo r respiratory rate less than 10 per minute. Maximum dose 4 mg over one hour. If multiple pain medications are ordered, start with hydromorphone or morphine and us e fentanyl for breakthrough pain., PACU Recovery, Routine lidocaine (XYLOCAINE) 10 mg/mL (1 %) injection 3 mg (COMPLET ED) 1115 (Given - Provider: Trent See, RN) 3 mg (0.3 mL), Subcutaneous, ONCE PRN, 1 dose, Starting Fri08/21/18 at 1031, Until Discontinued, for discomfort with PIV insertion, Day of Surgery (Day of Procedure), Routine lidocaine (XYLOCAINE) 10 mg/mL (1 %) injection 3 mg 3 mg (0.3 mL), Subcutaneous, ONCE PRN, 1 dose, Starting Fri08/21/18 at 2003, Until 08/22/18 at 1839, for discomfort with PIV insertion, Recovery (Recovery- Hospital Unit), Routine oxyCODONE (ROXICODONE) immediate release tablet 10-15 mg(Linked Group 1) 1608 (See Alternative - Provider: Rachel Dutton RN) 10-15 mg, Oral, EVERY 4 HOURS PRN, Start ing Fri08/21/18 at 2002, Until 08/22/18 at 1839, Pain, severe pain (7-10), Initial dose 10mg. If pain control not adequate in 60 minutes, give additional 5mg, Routine oxyCODONE (ROXICODONE) immediate release tablet 5-10 mg(Linked G roup 1) 1608 (Given - Provider: Rachel Dutton RN) 5-10 mg, Oral, EVERY 4 HOURS PRN, Starti ng Fri08/21/18 at 2002, Until 08/22/18 at 1839, Pain, moderate pain (4-6), Initial dose 5mg. If pain control not adequate in 60 minutes, give additional 5mg, Routine polyethylene glycol (MIRALAX) packet 17 g 17 g, Oral, DAILY PRN, Starting Fri at 2003, Until 08/22/18 at 1839, Constipation, Administer if no bowel movement within 48 hours to achieve: (1) One bowel movement at least every 48 hours, AN D (2) without straining. If multiple PRN bowel medications ordered, start with polyethylene glycol, then lactulose, then oral bisacodyl, then bisacodyl suppository, then magnesium citrate, then tap wate r enema. Multiple medications may be giv en concomitantly for constipation., Routine sodium chloride 0.9 % (flush) flush 5-20 mL 5-20 mL, Intravenous, EVERY 1 MIN PRN, S tarting Fri08/21/18 at 2003, Until 08/22/18 at 183, flush, Flush pertains to all indwelling lines. Flush per protocol found in the job aid using the link provid ed on this medication record., Recovery (Recovery-Hospital Unit) , Routine Linked Groups Order Group 1: oxyCODONE (ROXICODONE) immediate release tablet 5-10 mgJump to med 5-10 mg, Oral, EVERY 4 HOURS PRN, Starti ng Fri08/21/18 at 2002, Until 08/22/18 at 183, Pain, moderate pain (4-6)
Initial dose 5mg. If pain control not adequate in 60 minutes, give additional 5mg
Routine Or oxyCODONE (ROXICODONE) immediate release tablet 10-15 mgJump to med 10-15 mg, Oral, EVERY 4 HOURS PRN, Start ing Fri08/21/18 at 2002, Until 08/22/18 at 183, Pain, severe pain (7-10)
Initial dose 10mg. If pain control not adequate in 60 minutes, give additional 5mg
Routine documented in this encounter Care Teams Marketing Technology Specialist Relationship Specialty Start Date End Date Richie Mendez DO PCP - General Family Medicine 03/27/18 [address] [place] [address] documented as of this encounter
--- OUTSIDE RECORDS SUMMARY | 2022-01-11 00:44 | XMS_ITS | Encounter Summary ---
:1940 Author Organization [facility] [address] Care Team Providers Name Role Phone Richie Mendez Primary Care Provider Encounter Details Date Type Department Care Team Description 01/29/2019 Office Visit Urology at [facility] Romi Velazquez, Lower abdominal pain [facility] [place] [address] [place], [place] [address] Social History Tobacco Use Types Packs/Day Years Used Date Smoking Tobacco: Never Smokeless Tobacco: Never Alcohol Use Standard Drinks/Week Comments Yes 3 (1 standard drink = 0.6 oz pure alcoho l) 2 wine a week. Sex Assigned at Date Recorded Not on file documented as of this encounter Last Filed Vital Signs Vital Sign Reading Time Taken Comments Blood Pressure 148/81 01/29/2019 10:22 AM EST Pt in a lot of pain Pulse 82 01/29/2019 10:22 AM EST Temperature - - Respiratory Rate - - Oxygen Saturation - - Inhaled Oxygen Concentration - - Weight - - Height - - Body Mass Index - - documented in this encounter Progress Notes Romi Velazquez MD - 01/29/2019 10:40 AM EST UROLOGY OUTPATIENT FOLLOW UP CHIEF COMPLAINT: Follow up surgery HISTORY OF PRESENT ILLNESS Paz Phillips is a 78 y.o. female with a long standing history of recurrent urolithiasis presenting with her for discussion of left hydroureteronephrosis. Her pertinent urologic history is as follows. 2002: She recalls undergoing SWL in [place] which failed to fully fragment the stone; she then underwent ureteroscopy (reportedly complex/difficult) as well as repeat SWL; she is unsure if she ever cleared all of the stone fragments. By report, a KUB was obtained in 2006 which did not show definote stone. 2009: She was seen in [place] with 3-4 months of moderate LLQ pain radiating towards her psilterallabia as well as suspected bladder spasms and was found to have obstruction of the left ureter on CTimaging. She underwent attempt at URS by Dr. Black at [facility]. She was found to [...] lap nephrectomy. 03/27/18: seen by me at [facility]. At that time she reports her LLQ [...] bothersome. Activity makes worse, nothing makes better. 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 NAD CV: Regular rate HEENT: NCAT PULM: Non labored breathing on RA ABD: Soft, non distended, well healing incisions , 2 areas of tenderness 2cm lateral and 2cm inferior and left of umbilicus, no obvious hernia : No CVA tenderness. RECTAL: deferred MSK: [...] no right hydroureteronephrosis or stones. ASSESSMENT 1. Persistent bro-incisional pain post s/p left HALap Nx. No GI symptoms or obvious hernia on exam.Discussed further work up with cross sectional imaging. Given solitary kidney discussed starting with non con CT abd/pelvis. I will call with result to discuss future plan. Discussed may need further contrast imaging pending findings and she is OK with this. In the interimwill prescribe lidocaine patches to see if this gives symptomatic relief. They will present urgentlywith worrisome symptoms. In PLAN -F/U CT scan In the interim have extensively counseled her on reasons to call or return including recurrent severe colic symptoms/febrile UTI, questions or concerns. Romi Velazquez MD documented in this encounter Plan of Treatment Not on filedocumented as of this encounter Visit Diagnoses Diagnosis Lower abdominal pain Abdominal pain, other specified site documented in this encounter Care Teams Energy Efficiency Specialist Relationship Specialty Start Date End Date Richie Mendez DO PCP - General Family Medicine 03/27/[address] [place] [address] documented as of this encounter
--- OUTSIDE RECORDS SUMMARY | 2022-01-11 00:44 | XMS_ITS | Encounter Summary ---
:1940 Author Organization [facility] [place] [address] Care Team Providers Name Role Phone Richie Mendez Primary Care Provider Encounter Details Date Type Department Care Team Description 02/04/2019 Telephone Urology at [facility] [place] Romi Velazquez MD [facility] [place] [address] [place] [id number] [phone] (Wo rk) Social History Tobacco Use Types Packs/Day Years Used Date Smoking Tobacco: Never Smokeless Tobacco: Never Alcohol Use Standard Drinks/Week Comments Yes 3 (1 standard drink = 0.6 oz pure alcoho l) 2 wine a week. Sex Assigned at Date Recorded Not on file documented as of this encounter Miscellaneous Notes Telephone Encounter - Romi Velazquez MD - 02/04/2019 9:55 AM EST Called Ms. Phillips to relay the result of her CT scan revealing a knuckle of fat poking out of the fascia near the periumbilical incision. She has no pain today. No fevers, chills, nausea, or vomiting. I have recommended since she has had symptoms intermittently I have recommended we plan to repair this in the OR. She would like to defer a few weeks as she has a family member that had a massive [place]. I have counseled her to call or present with any worrisome symptoms. We will begin to look for OR time in the interim. Romi Velazquez MD documented in this encounter Plan of Treatment Not on filedocumented as of this encounter Visit Diagnoses Not on filedocumented in this encounter Care Teams Rapid Transit Operator Relationship Specialty Start Date End Date Richie Mendez DO PCP - General Family Medicine 03/27/[address] [place] [address] documented as of this encounter
--- OUTSIDE RECORDS SUMMARY | 2022-01-11 00:44 | XMS_ITS | Encounter Summary ---
:1940 Author Organization [facility] [place] [address] Care Team Providers Name Role Phone Richie Mendez DO Primary Care Provider Encounter Details Date Type Department Care Team Description 07/11/2018 Ancillary Procedure Radiology Library at [facility] [place] [facility] [place] [address] UROLOGY [phone] [place] [id number] (Wo rk) Social History Tobacco Use Types Packs/Day Years Used Date Smoking Tobacco: Never Sex Assigned at Date Recorded Not on file documented as of this encounter Plan of Treatment Not on filedocumented as of this encounter Procedures Procedure Name Priority Date/Time Associated Diagnosis Comme nts FILM LIBRARY Routine 07/11/2018 9:58 PM Results f or this STORAGE ONLY CT EDT procedure ar e in ABDOMEN AND PELVIS the resul ts section. documented in this encounter Results Film Library- Storage Only CT Abdomen & Pelvis (07/11/2018 9:58 PM EDT) Specimen (Source) Anatomical Location Collection Method / Collectio n Time Received Time / Laterality Volume Narrative RAD - 07/11/2018 9:58 PM EDT This exam is auto-finalizing. It's purpo se is for storage only. Jaylen [place] MD G FILM LIBRARY ORDERABLES Performing Organization Address City/State/ZIP Code Phon e Number RAD [place], [place] documented in this encounter Visit Diagnoses Not on filedocumented in this encounter Care Teams Teamcenter Solution Architect Relationship Specialty Start Date End Date Richie Mendez DO PCP - General Family Medicine 03/27/18 [address] [place] [address] documented as of this encounter
--- OUTSIDE RECORDS SUMMARY | 2022-01-11 00:44 | XMS_ITS | Encounter Summary ---
:1940 Author Organization [facility] [place] [address] Care Team Providers Name Role Phone Richie Mendez DO Primary Care Provider Encounter Details Date Type Department Care Team Description 02/04/2019 Telephone Urology at [facility] [place] [place] Romi Velazquez MD [facility] [place] [address] [place] [address] [phone] (Wo rk) Social History Tobacco Use Types Packs/Day Years Used Date Smoking Tobacco: Never Smokeless Tobacco: Never Alcohol Use Standard Drinks/Week Comments Yes 3 (1 standard drink = 0.6 oz pure alcoho l) 2 wine a week. Sex Assigned at Date Recorded Not on file documented as of this encounter Miscellaneous Notes Telephone Encounter - Aleksandra Fischer - 02/04/2019 10:49 AM EST PT called back. She reports that she has decided to move forward with the surgery. Told PT that I would send a message to Dr Velazquez, she would put the surgical orders in, and then Marleny our registered nurse surgical services would call her to schedule. PT understands and agrees to plan. [phone] documented in this encounter Plan of Treatment Not on filedocumented as of this encounter Visit Diagnoses Not on filedocumented in this encounter Care Teams Forensic Psychologist Relationship Specialty Start Date End Date Richie Mendez DO PCP - General Family Medicine 03/27/18 [address] [place] [address] documented as of this encounter
--- OUTSIDE RECORDS SUMMARY | 2022-01-11 00:44 | XMS_ITS | Encounter Summary ---
:1940 Author Organization [facility] [place] [address] Care Team Providers Name Role Phone Richie Mendez Primary Care Provider Encounter Details Date Type Department Care Team Description 12/10/2018 Office Visit Urology at [facility] [place] Romi Velazquez, Follow-up exam after treatme nt; [facility] Other symptoms and signs involving the g enitourinary system Drive [facility] [id number] [place] [id number] [phone] Social History Tobacco Use Types Packs/Day Years Used Date Smoking Tobacco: Never Smokeless Tobacco: Never Alcohol Use Standard Drinks/Week Comments Yes 3 (1 standard drink = 0.6 oz pure alcoho l) 2 wine a week. Sex Assigned at Date Recorded Not on file documented as of this encounter Last Filed Vital Signs Vital Sign Reading Time Taken Comments Blood Pressure 144/83 12/10/2018 9:47 AM EDT Pulse 73 12/10/2018 9:47 AM EDT Temperature - - Respiratory Rate - - Oxygen Saturation 100% 12/10/2018 9:47 AM EDT Inhaled Oxygen Concentration - - Weight - - Height - - Body Mass Index - - documented in this encounter Progress Notes Romi Velazquez MD - 12/10/2018 10:00 AM EDT UROLOGY OUTPATIENT FOLLOW UP CHIEF COMPLAINT: Follow up surgery HISTORY OF PRESENT ILLNESS Paz Phillips is a 78 y.o. female with a long standing history of recurrent urolithiasis presenting with her for discussion of left hydroureteronephrosis. Her pertinent urologic history is as follows. 2003: She recalls undergoing SWL in [place] which failed to fully fragment the stone; she then underwent ureteroscopy (reportedly complex/difficult) as well as repeat SWL; she is unsure if she ever cleared all of the stone fragments. By report, a KUB was obtained in 2006 which did not show definote stone. 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 She underwent attempt at URS by Dr. Black at [facility]. She was found to have left [...] lap nephrectomy. 03/27/18: seen by me at [facility]. At that time she [...] surgery. No fevers, chills, nausea, or vomiting. Today her pain is controlled without medications. She denies fevers, chills, nausea, gross hematuria, or dysuria. She is now interested in nephrectomy. 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 PHYSICAL EXAM GEN: Alert and oriented to [...] leukocyte esterase, nitrites 12/10/18: + trace blood IMAGING: I personally reviewed the following imaging: [...] also has a stable asymptomatic right renal cyst. Recovered well from surgery. Trace blood on UA. PLAN -Cleared for full activity -Follow up UA / cx if negative for infection RTC PRN In the interim have extensively counseled her on reasons to call or return including recurrent severe colic symptoms/febrile UTI, questions or concerns. Romi Velazquez MD Romi Velazquez MD - 12/10/2018 10:00 AM EDT No treatment necessary. Status: Final result ?Visible to patient: No (Not Released) Next appt: None Dx: Follow-up exam after treatment; Other... Specimen Information: Clean Catch Urine ?? Component Urine Culture No growth (Less than 1,000 cfu/ml). Resulting Agency [facility] Lab Resulting Agency's Comment Spec In Lab Specimen Collected: 12/10/18 10:45 documented in this encounter Miscellaneous Notes Addendum Note - Emelina Del Rio, RN - 12/10/2018 10:00 AM EDT Addended by: EMELINA DEL RIO on: 12/10/2018 10:45 AM Modules accepted: Orders documented in this encounter Plan of Treatment Not on filedocumented as of this encounter Procedures Procedure Name Priority Date/Time Associated Diagnosis Comme nts HC URINALYSIS Routine 12/10/2018 10:45 Follow-up exam after Re sults for this ROUTINE AM EDT treatment procedure are in Other symptoms and the resul ts signs involving the section. genitourinary system HC URINE CULTURE Routine 12/10/2018 10:45 Follow-up exam after Results for this AM EDT treatment procedure are in Other symptoms and the resul ts signs involving the section. genitourinary system documented in this encounter Results Urine culture Clean Catch Urine (12/10/2018 10:45 AM EDT) [facility] Method Time Signature Urine Culture No growth MIRYAM VARELA (Less than [facility] 1,000 [facility] cfu/ml). LABORATORY Specimen (Source) Anatomical Collection Method Collection Time Re ceived Time Location / / Volume Laterality Urine specimen 12/10/2018 10:45 9 2:35 obtained by clean AM EDT PM EDT catch procedure (specimen) Resulting Agency Comment Spec In Lab Romi Velazquez MD MICROBIOLOGY - GENERAL ORDER [place] Performing Organization Address City/State/ZIP Code Phon e Number [place] [phone] (ABNORMAL) _Urinalysis with microscopic (12/10/2018 10:45 AM EDT) [facility] Method Time Signature Glucose UA Negative Negative MIRYAM NICHOLE mg/dL [facility] Protein UA Negative Negative [facility] [place] mg/dL [facility] Bilirubin UA Negative Negative MIRYAM [place] mg/dL [facility] Comment: Clinical correlation required for positi ve Urine Bilirubin results as false positive may occur with some drugs and d rug related products. If a false positive is suspected a serum total bili yadav should be considered if clinically indicated. Urobilinogen UA Normal Normal mg/dL [facility] pH UA 6.5 5.0 - 8.0 [facility] Blood UA Trace (A) Negative mg/dL [facility] Ketones UA Negative Negative mg/dL [facility] Nitrite UA Negative Negative [facility] Leukocytes UA Trace (A) Negative [facility] LABORATORY Appearance UA Clear Clear [facility] Spec [place] UA 1.008 1.002 - 1.030 [facility] Color UA Yellow Yellow [facility] RBC UA 0 0 - 4 /HPF [facility] WBC UA 1 0 - 5 /HPF [facility] Specimen Anatomical Collection Method Collection Time Receive d Time (Source) Location / / Volume Laterality Urine specimen 12/10/2018 10:45 9 1:32 (specimen) AM EDT PM EDT Resulting Agency Comment Spec In Lab Romi Velazquez MD URINE ORDERABLES Performing Organization Address City/State/[place] [address] documented in this encounter Visit Diagnoses Diagnosis Follow-up exam after treatment Unspecified follow-up examination Other symptoms and signs involving the g enitourinary system documented in this encounter Care Teams Teacher Of Family And Consumer Science Relationship Specialty Start Date End Date Richie Mendez DO PCP - General Family Medicine 03/27/[address] [place] [address] documented as of this encounter
--- OUTSIDE RECORDS SUMMARY | 2022-01-11 00:44 | XMS_ITS | Encounter Summary ---
:1940 Author Organization [facility] [place] [address] Care Team Providers Name Role Phone Richie Mendez Pippa MAYNARD Primary Care Provider Reason for Visit Auth/Cert Specialty Diagnoses / Procedures Referred By Contact Refer red To Contact Diagnoses Atrophic kidney LEFT ATROPHIC KIDNEY/ PAIN Procedures PRO LAP, RADICAL NEPHRECTOMY @[email or web address], RADICAL NEPHRECTOMY ([facility] 25.) Referral ID Status Reason Start Date Expiration Date Visits Requ ested Visits Authorized [id number] 1 1 Encounter Details Date Type Department Care Team Description 08/21/2018 Surgery Main Operating Room Demi Velazquez MD @[email or web address], [facility] ([facility] [address] 25.06) [place], [place] [address] [place] [address] [phone] Social History Tobacco Use Types Packs/Day Years Used Date Smoking Tobacco: Never Smokeless Tobacco: Never Alcohol Use Standard Drinks/Week Comments Yes 3 (1 standard drink = 0.6 oz pure alcoho l) 2 wine a week. Sex Assigned at Date Recorded Not on file documented as of this encounter Last Filed Vital Signs Vital Sign Reading Time Taken Comments Blood Pressure 147/72 08/21/2018 10:40 AM EDT Pulse 71 08/21/2018 10:40 AM EDT Temperature 36.4 ??C (97.5 ??F) 08/21/2018 10:40 AM EDT Respiratory Rate 14 08/21/2018 10:40 AM EDT Oxygen Saturation 99% 08/21/2018 10:40 AM EDT Inhaled Oxygen Concentration - - Weight 61.2 kg (135 lb) 08/21/2018 10:40 AM EDT Height 152.4 cm (5') 08/21/2018 10:40 AM EDT Body Mass Index 26.37 08/22/2018 2:35 AM EDT documented in this encounter Discharge Summaries Azael Robles MD - 08/22/2018 3:18 PM EDT Discharge Summary Patient Name: Paz Phillips Patient Age: 77 y.o. Language: Nigerien Race: White Ethnicity: Not nor Admit date: [...] Hospital Course: Patient was admitted electively to [facility] via the same day surgery program and [...] have been sent to [facility] in [facility] Vital Signs at Discharge: Weight: Wt [...] questions is before 5 PM weekdays and after 5 PM and weekends, and ask for sephora operations consultant Urologist. Special Considerations for Solitary Kidneys: Do [...] appointments. Primary Care Provider: Richie Mendez DO [phone] Follow-up Recommendations for Providers: * Call your [...] was managed by the Urology Team at [facility]. If you have any questions or concerns, please feel free to contact us. Provider Contact Information: Urology Clinic: [facility] (after business hours): Discharge References/Attachments None Associated attestation - Je Persaud III, MD - 08/23/2018 7:40 AM EDT I have seen the patient and reviewed the resident's above history and I agree with the details as written. The assessment and plan were formulated in discussion with me and I agree with them as documented. Je Persaud III, MD rattlesnake farmer and Pediatrics [facility] [employer] Senior Staff Pediatric Urologist [facility] documented in this encounter Discharge Instructions Patient [...] questions is before 5 PM weekdays and after 5 PM and weekends, and ask for sephora operations consultant Urologist. Special Considerations for Solitary Kidneys: Do [...] pt's home pharmacy. PIV removed. Patient left [facility] in a wheelchair accompanied by 2 [place] staff. Beth Fernández MD - 08/22/2018 4:39 PM EDT Spoke to patient via telephone. Peripheral nerve block resolved appropriately. No residual weakness/numbness/decreased sensation. No sign of infection at injection site. Tolerating POs appropriately. Patient very satisfied with nerve block. BETH FERNÁNDEZ MD 08/24/2018 Alicia Muller RN - 08/22/2018 3:31 AM EDT Pt admitted to [facility] at 0245. Oriented to room, call light [...] spontaneously, warm. SCDs in place. Assessment/Plan Paz Pippa Phillips is a 77 y.o. female s/p . Stable post-op. - Pain well-controlled on current regimen. - Hemodynamically stable. - UOP adequate, continue to monitor. - SCDs in place. - Continue post-op plan per primary team. Monserrat Greene RN - 08/21/2018 11:36 PM EDT 2330 - report from CLEMENT Jeffery and care [...] Call al in reach. No pt belongi ngs, family left for home earlier. 0130 - pt sleeping well. Stable. Am labs sent. 0145 - report to CLEMENT Matute and pt readied for transfer to [facility] via bed. Rosi Ceja RN - 08/21/2018 7:52 PM EDT 194- On arrival to pacu, pt is sedated. [...] for visitation. 2210- Report to Jennifer Owens INTERNAL CORROSION SPECIALIST. documented in this encounter H&P Notes Romi [...] ?? 2002: She recalls undergoing SWL in [place] which failed to fully fragment the stone; she then underwent ureteroscopy (reportedly complex/difficult) as well as repeat SWL; she is unsure if she ever cleared all of the stone fragments. By report, a KUB was obtained in 2006 which did not show definote stone. ?? 2009: She was seen in [place] with 3-4 months of moderate LLQ pain [...] nephrectomy. ? 03/27/18: seen by me at [facility]. At that time she reports her LLQ [...] URS SWL Tubal ligation ?? 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 The gonadalvein was [...] Outcome: Ongoing (Interventions Implemented as Appropriate) 08/22/18 0300 Coping/Psychosocial Plan Of Care Reviewed With patient [...] Operative Note Patient Name: Paz Phillips : [id number] MR#: [id number] Case Date: 08/21/2018 Surgeon: Surgeon(s) and Role: [...] (ABNORMAL) Differential, Automated (08/22/2018 1:24 AM EDT) [facility] Method Time Signature Neutrophils % 94.9 % [facility] Neutr Abs (ANC) 13.32 (H) 1.70 - [facility] 6.10 [facility] x10(3)/[facility] L LABORATORY Lymphocytes % 1.7 % [facility] Lymphocytes Abs 0.2 (L) 0.9 - 3.2 [facility] x10(3)/[facility] LABORATORY Monocytes % 3.1 % [facility] Monocyte Abs 0.4 0.3 - 0.9 [facility] x10(3)/[facility] LABORATORY Eosinophils % 0.0 % [facility] Eosinophils Abs 0.0 0.0 - 0.4 [facility] x10(3)/[facility] LABORATORY Basophils % 0.1 % [facility] Basophils Abs 0.0 0.0 - 0.1 [facility] x10(3)/[facility] LABORATORY Immature Gran % 0.20 % [facility] Comment: Immature granulocytes(IG's)percentage an d absolute count will include metamyelocytes, myelocytes, and promyelo cytes. Blood smears from CBCs yielding IG's will be scanned manually for concor dance. If this scan disagrees with the automated IG or if promyelocytes are not ed, a manual differential will be performed. Deann Gran Abs 0.03 0.00 - 0.04 x10(3)/[facility] LABORATORY Specimen Anatomical Collection Method Collection Time Receive d Time (Source) Location / / Volume Laterality Blood specimen 08/22/2018 1:24 AM 019 1:33 (specimen) EDT AM EDT Resulting Agency Comment Spec In Lab Tracie Angela MD HEMATOLOGY ORDERABLES Performing Organization Address City/State/[place] [address] (ABNORMAL) Hemogram (08/22/2018 1:24 AM EDT) Analysis Performed At Patho logist Time Signature WBC 14.0 (H) 4.0 - 9.5 [facility] x10(3)/[facility] LABORATORY RBC 4.55 4.00 - [facility] 5.21 [facility] x10(6)/[facility] LABORATORY Hemoglobin 13.3 11.7 - [place] 15.5 gm/dL [facility] LABORATORY Hematocrit 41.9 35.7 - [place] 45.8 % [facility] LABORATORY MCV 92.1 82.6 - [place] 94.4 [facility] LABORATORY MCH 29.2 27.1 - [place] 32.0 pg [facility] LABORATORY MCHC 31.7 31.7 - [place] 35.0 gm/dL [facility] LABORATORY Platelets 164 145 - 357 [place] x10(3)/[facility] LABORATORY RDWSD 48.4 (H) 37.0 - [place] 46.0 [facility] LABORATORY RDWCV 14.3 (H) 11.5 - [facility] [place] 14.1 % [facility] LABORATORY MPV 11.2 7.6 - 12.9 [facility] LAB[facility]ATORY nRBC % Auto 0.0 % [facility]ORATORY nRBC Abs Auto 0.000 0.000 - [place] 0.000 [facility] x10(3)/[facility] LABORATORY Specimen Anatomical Collection Method Collection Time Receive d Time (Source) Location / / Volume Laterality Blood specimen 08/22/2018 1:24 AM 019 1:33 (specimen) EDT AM EDT Resulting Agency Comment Spec In Lab Tracie Angela MD HEMATOLOGY ORDERABLES Performing Organization Address City/State/[place] [address] (ABNORMAL) Creatinine (08/22/2018 1:24 AM EDT) P athologist Signature Creatinine 0.97 0.70 - [place] 1.20 mg/dL [facility] LABOR[facility]ORY Estimated GFR 57 (L) >=60 [place] mL/min/1.7 [facility] 3 m?? HOSPITAL LABORATORY Comment: The eGFR was calculated using the CKD-EP I equation. As with all creatinine based estimates of kidney function, eGFR values calculated with the CKD-EPI equation are not accurate in patients wi th acute kidney failure, extremes of body mass or the acutely ill. [email or web address] eGFR 66 >=60 mL/min/1.73 m?? [facility] Comment: The eGFR was calculated using the CKD-EP I equation. As with all creatinine based estimates of kidney function, eGFR values calculated with the CKD-EPI equation are not accurate in patients wi th acute kidney failure, extremes of body mass or the acutely ill. [email or web address] Specimen Anatomical Collection Method Collection Time Receive d Time (Source) Location / / Volume Laterality Blood specimen 08/22/2018 1:24 AM 019 1:33 (specimen) EDT AM EDT Resulting Agency Comment Spec In Lab Romi Velazquez MD CHEMISTRY ORDERABLES Performing Organization Address City/[facility] Phon e Number [address] BUN (08/22/2018 1:24 AM EDT) P athologist Signature BUN 9 8 - 18 [facility] LABOR[facility]ORY Specimen Anatomical Collection Method Collection Time Receive d Time (Source) Location / / Volume Laterality Blood specimen 08/22/2018 1:24 AM 019 1:33 (specimen) EDT AM EDT Resulting Agency Comment Spec In Lab Romi Velazquez MD CHEMISTRY ORDERABLES Performing Organization Address City/[facility] [place] [address] (ABNORMAL) Electrolytes panel (08/22/2018 1:24 AM EDT) athologist Signature Sodium 140 135 - 145 [facility] mmol/L [facility] LABORATORY Potassium 4.4 3.5 - 5.0 [facility] mmol/L [facility] LABORATORY Comment: Please note: ??Patients with WBC >100,00 0 may have falsely elevated Potassium levels. ??For accurate Potassium quantif ication in these patients send serum separator tube (gold top) for subsequent determinations. ??Contact the Clinical Chemistry Laboratory if there are any qu estions. Chloride 106 98 - 107 mmol/L [facility] CO2 21 (L) 22 - 31 mmol/L [facility] Anion Gap 13 5 - 15 mmol/L [facility] LABOR[facility]ORY Specimen Anatomical Collection Method Collection Time Receive d Time (Source) Location / / Volume Laterality Blood specimen 08/22/2018 1:24 AM 019 1:33 (specimen) EDT AM EDT Resulting Agency Comment Spec In Lab Romi Velazquez MD CHEMISTRY ORDERABLES Performing Organization Address City/State/[place] [address] (ABNORMAL) Differential, Automated (08/21/2018 8:06 PM EDT) [facility] Method Time Signature Neutrophils % 93.8 % [facility]ORY Neutr Abs (ANC) 13.01 (H) 1.70 - [facility] 6.10 [facility] x10(3)/[facility] L LABORATORY Lymphocytes % 2.6 % [facility]ORATORY Lymphocytes Abs 0.4 (L) 0.9 - 3.2 [facility] x10(3)/[facility] LABORATORY Monocytes % 3.0 % [facility]ORATORY Monocyte Abs 0.4 0.3 - 0.9 [facility] x10(3)/[facility] LABORATORY Eosinophils % 0.0 % [facility] Eosinophils Abs 0.0 0.0 - 0.4 [facility] x10(3)/[facility] LABORATORY Basophils % 0.2 % [facility]ORY Basophils Abs 0.0 0.0 - 0.1 [facility] x10(3)/[facility] LABORATORY Immature Gran % 0.40 % [facility] Comment: Immature granulocytes(IG's)percentage an d absolute count will include metamyelocytes, myelocytes, and promyelo cytes. Blood smears from CBCs yielding IG's will be scanned manually for concor dance. If this scan disagrees with the automated IG or if promyelocytes are not ed, a manual differential will be performed. Deann Gran Abs 0.05 (H) 0.00 - 0.04 x10(3)/[facility] LABORATORY Specimen Anatomical Collection Method Collection Time Receive d Time (Source) Location / / Volume Laterality Blood specimen 08/21/2018 8:06 PM 019 8:15 (specimen) EDT PM EDT Resulting Agency Comment Spec In Lab Tracei Angela MD HEMATOLOGY ORDERABLES Performing Organization Address City/State/[place] [address] (ABNORMAL) Hemogram (08/21/2018 8:06 PM EDT) Analysis Performed At Patho logist Time Signature WBC 13.9 (H) 4.0 - 9.5 [facility] [place] x10(3)/[facility] LABORATORY RBC 4.68 4.00 - [place] 5.21 [facility] x10(6)/[facility] LABORATORY Hemoglobin 13.4 11.7 - [facility] 15.5 gm/dL [facility] LABORATORY Hematocrit 43.4 35.7 - [facility] 45.8 % [facility] LABORATORY MCV 92.7 82.6 - [facility] 94.4 [facility] LABORATORY MCH 28.6 27.1 - [place] 32.0 pg [facility] LABORATORY MCHC 30.9 (L) 31.7 - [facility] [place] 35.0 gm/dL [facility] LABORATORY Platelets 169 145 - 357 [facility] x10(3)/[facility] LABORATORY RDWSD 47.7 (H) 37.0 - [facility] [place] 46.0 [facility] LABORATORY RDWCV 14.0 11.5 - [facility] 14.1 % [facility] LABORATORY MPV 11.4 7.6 - 12.9 [facility] LABORATORY nRBC % Auto 0.0 % [facility] LABORATORY nRBC Abs Auto 0.000 0.000 - [facility] [place] 0.000 [facility] x10(3)/[facility] LABORATORY Specimen Anatomical Collection Method Collection Time Receive d Time (Source) Location / / Volume Laterality Blood specimen 08/21/2018 8:06 PM 019 8:15 (specimen) EDT PM EDT Resulting Agency Comment Spec In Lab Tracie Angela MD HEMATOLOGY ORDERABLES Performing Organization Address City/State/[place] [address] (ABNORMAL) Basic Metabolic Panel (non-fasting) (08/21/2018 8:06 PM EDT) athologist Signature Glucose Lvl 167 65 - 199 [facility] mg/dL [facility] LABORATORY Comment: Diabetes: >=200 mg/dL plus symp toms BUN 9 8 - 18 mg/dL [facility] LABORATORY Creatinine 0.99 0.70 - 1.20 mg/dL [facility] LABORATORY Sodium 143 135 - 145 mmol/L [facility] LABORATORY Potassium 3.9 3.5 - 5.0 mmol/L [facility] LABORATORY Comment: Please note: ??Patients with WBC >100,00 0 may have falsely elevated Potassium levels. ??For accurate Potassium quantif ication in these patients send serum separator tube (gold top) for subsequent determinations. ??Contact the Clinical Chemistry Laboratory if there are any qu estions. Chloride 109 (H) 98 - 107 mmol/L [facility] CO2 21 (L) 22 - 31 mmol/L [facility] Anion Gap 13 5 - 15 mmol/L [facility] LAB[facility]ORY Calcium 8.3 (L) 8.5 - 10.5 mg/dL [facility] LABORATORY Estimated GFR 56 (L) >=60 mL/min/1.73 m?? [facility] Comment: The eGFR was calculated using the CKD-EP I equation. As with all creatinine based estimates of kidney function, eGFR values calculated with the CKD-EPI equation are not accurate in patients wi th acute kidney failure, extremes of body mass or the acutely ill. [email or web address]/[facility] eGFR 65 >=60 mL/min/1.73 m?? [facility] Comment: The eGFR was calculated using the CKD-EP I equation. As with all creatinine based estimates of kidney function, eGFR values calculated with the CKD-EPI equation are not accurate in patients wi th acute kidney failure, extremes of body mass or the acutely ill. http://[employer]/[facility] Specimen Anatomical Collection Method Collection Time Receive d Time (Source) Location / / Volume Laterality Blood specimen 08/21/2018 8:06 PM 019 8:15 (specimen) EDT PM EDT Resulting Agency Comment Spec In Lab Romi Velazquez MD CHEMISTRY ORDERABLES Performing Organization Address [facility]/[place] [address] Specimen to Pathology (08/21/2018 6:05 PM EDT) Specimen Anatomical Collection Method Collection Time Receive d Time (Source) Location / / Volume Laterality AP Specimen 08/21/2018 6:05 PM 9 6:05 EDT PM EDT Narrative [facility] ORY - 08/21/2018 6:05 PM EDT Specimen requisition ordered. ??Separate Pathology report to follow Romi Velazquez MD PATHOLOGY/CYTOLOGY ORDERABLE S Performing Organization Address City/[facility]/[place] [address] Surgical Pathology Report (08/21/2018 6:03 PM EDT) Component Value Ref Test Analysis Performed At [facility] Range Method Time Signature Surgical [id number] ? Location: [facility]; [facility] [place][note 2]; [facility] Report The signing pathologist has (i) examined the relevant preparation(s) for the [facility] specimen(s) and (ii) rendered or confirmed the diagnosis(es) . HOSPITAL LABORATORY . ?Surgic al Pathology DIAGNOSIS Left kidney (nephrectomy): ?? 1. Hydronephrosis. ?? 2. Renocortical atrophy and chronic pyelonephritis. ?? 3. No evidence of malignancy. CR-0 Electronically signed by: ??Kev Zafar MD Verified: ??08/25/2018 ?Pathologist Performed at: ??-[facility] Dept. of Pathology, [place], [place] CLINICAL INFORMATION Specimen Submitted: A - [...] attenuated displaying a smooth lined cyst wall. Mammography Technician sections in 4 cassettes as follows: ?A1: Vascular and ureteral margins ?A2-A4: Cyst wall and possible parenchyma ejr Specimen (Source) Anatomical Collection Method Collection Time Re ceived Time Location / / Volume Laterality 08/21/2018 6:03 PM EDT Romi Velazquez MD PATHOLOGY/CYTOLOGY ORDERABLE S Performing Organization Address City/State/[place] [address] (ABNORMAL) BLOOD GAS 2 ARTERIAL (08/21/2018 2:45 PM EDT) Analysis Performed At Patho logist Time Signature pH Art 7.40 7.35 - [facility] 7.45 [facility] LABORATORY pCO2 Art 34 (L) 35 - 45 [facility] mmHg [facility] LABORATORY pO2 Art 270 (H) 85 - 104 [facility] LABORATORY HCO3 Art 20.7 20.0 - [facility] 26.0 [facility] mmol/L [facility] LABORATORY BE Art -4.0 (L) -3.0 - 3.0 [facility] mmol/L [facility] LABORATORY Hgb Blood Gas 13.7 11.7 - [facility] 15.5 gm/dL [facility] LABORATORY O2HB Art 99.0 (H) 94.0 - [facility] 97.0 % [facility] LABORATORY COHB Art 0.5 % [facility] LABORATORY Comment: Nonsmokers: 0.5-1.5% COHB Smokers: Variable, but usually less than 10% Toxic: 20-30% COHB Lethal: Greater than 60% COHB METHB Art 0.1 <=1.5 % [facility] LABORATORY Na Whole Blood 140 135 - 145 mmol/L [facility] LABORAT[facility] K Whole Blood 3.3 (L) 3.5 - 5.0 mmol/L [facility] LABORATORY Comment: Please note: Patients with WBC >100,000 may have falsely elevated Potassium levels. Contact the Clinical Chemistry L aboratory if there are any questions. ICa Whole Blood 1.14 (L) 1.15 - 1.33 mmol/L [facility] LABOR[facility]ORY Comment: Note: ??Total bilirubin higher than 20 m g/dL may lead to falsely low ionized calcium. CL Whole Blood 108 (H) 98 - 107 mmol/L [facility] LABORATORY Gluc Whole Bld 133 65 - 199 mg/dL [facility] LABORATORY Comment: Diabetes: >=200 mg/dL plus symp toms. Lactate WB 1.3 0.5 - 2.2 mmol/L [facility] LABORATORY FIO2 Art 56 % [facility] LABOR[facility] PF Ratio Art 482 [facility] LABORATORY Specimen Anatomical Collection Method Collection Time Receive d Time (Source) Location / / Volume Laterality Blood specimen 08/21/2018 2:45 PM 019 2:45 (specimen) EDT PM EDT Romi Velazquez MD CHEMISTRY ORDERABLES Performing Organization Address City/State/[place] [address] documented in this encounter Visit Diagnoses Not on filedocumented in this encounter Admitting Diagnoses Diagnosis Atrophic kidney Renal sclerosis, unspecified documented in this encounter Administered Medications Inactive Administered Medications - up to 3 most recent administrations Medication Order MAR Action Action Date Dose Rate Site acetaminophen (TYLENOL) tablet Given 08/22/2018 11:57 AM EDT 1,0 00 mg 1,000 mg 1,000 mg, Oral, EVERY 6 HOURS SCHEDULED, First dose on Fri08/21/18 at 2030, Until Discontinued, Do not exceed 4,000 mg in 24 hours, Routine Given 08/22/2018 5:56 AM EDT 1,000 mg Given 08/21/2018 11:51 PM EDT 1,000 mg cephALEXin (KEFLEX) capsule 250 mg 250 mg, Oral, EVERY 6 HOURS SCHEDULED, F irst dose (after last modification) on 08/22/18 at 1800, Until Discontinued, Rout ine, Indication for (Active or Suspected): Prophylaxis docusate sodium (COLACE) capsule 100 mg Given 08/22/2018 9:44 AM EDT 100 mg 100 mg, Oral, 2 TIMES DAILY, First dose on Fri08/21/18 at 2200, Until Discontinued, Routine Given 08/21/2018 9:44 PM EDT 100 mg lactated ringers infusion New Bag 08/22/2018 9:43 AM EDT 100 mL/hr 100 mL/hr 100 mL/hr, Intravenous, CONTINUOUS, Starting on 08/22/18 at 0200, Until 08/22/18 at 1839 Rate/Dose Verify 08/22/2018 5:00 AM EDT 100 mL/hr 100 mL/hr New Bag 08/21/2018 11:30 PM EDT 100 mL/hr 100 mL/hr oxyCODONE (ROXICODONE) immediate release tablet 10-15 mg 10-15 mg, Oral, EVERY 4 HOURS PRN, Start ing on Fri08/21/18 at 2003, Until 08/22/18 at 1839, Pain, severe pain (7-10), Initi al dose 10mg. If pain control not adequate in 60 minutes, give additional 5mg, Routine oxyCODONE (ROXICODONE) immediate release tablet Given 08/22/2018 4:08 PM EDT 5 mg 5-10 mg 5-10 mg, Oral, EVERY 4 HOURS PRN, Starting on Fri08/21/18 at 2003, Until 08/22/18 at 1839, Pain, moderate pain [...] comment - Comment: patient refused at this time)2351 (Given - Provider: Monserrat Greene, RN) 0556 (Given - Provider: Alicia Muller, CLEMENT)1157 (Given - Provider: Rachel Dutton, RN) 1,000 mg, Oral, EVERY 6 HOURS SCHEDULED, First dose on Fri08/21/18 at 2030, Until Discontinued, Do not exceed 4,000 mg in 24 hours, Routine ceFAZolin (ANCEF) 1g in dextrose 5% 50mL (COMPLETED) 0128 (New Bag - Provider: Monserrat Greene RN)0158 (Stopped - Provider: Monserrat Greene, RN)0949 (New Bag - Provider: Rachel Dutton, [...] Routine docusate sodium (COLACE) capsule 100 mg 2144 (Given - Provider: Rosi Ceja, RN) 0944 [...] (COMPLETED) 1608 (Given - Provider: Rachel Dutton, RN) 4 mg, Oral, ONCE, 1 dose, On 08/22/18 at 1615, Routine sodium chloride 0.9 % (flush) flush 5 mL 2056 (Given - Provider: Rosi Ceja, RN) 0950 (Given - Provider: Rachel Dutton , RN) 5 mL, Intravenous, 2 TIMES DAILY, First dose on Fri08/21/18 at 2100, Until Discontinued, Recovery (Recovery-Hospital Unit), Routine Continuous Medication Order 08/20/2018 08/21/2018 08/22/2018 lactated ringers infusion (CANCELED) 110 0 (New Bag - Provider: Trent See RN)2159 (New Bag - Provider: Rosi Ceja, CLEMENT) 1,000 mL, at 100 mL/hr, Intravenous, CON TINUOUS, Starting Fri08/21/18 at 1100, Until Fri08/21/18 at 2330, Day of Surgery (Day of Procedure) lactated ringers infusion 2330 (New Bag - Provid er: Monserrat Greene RN) 0500 (Rate/Dose Verify - Provider: Alicia Muller, CLEMENT)0943 (New Bag - Provider: Rachel Dutton, CLEMENT) 100 mL/hr, at 100 mL/hr, Intravenous, CO NTINUOUS, Starting 08/22/18 at 0200, Until 08/22/18 at 1839 PRN Medication Order 08/20/2018 08/21/2018 08/22/2018 fentaNYL (PF) 50mcg/mL injection (CANCELED) 2044 (Given - Provider: Rosi Ceja, CLEMENT) 12.5-25 mcg, Intravenous, EVERY 5 MIN ID N, Starting Fri08/21/18 at 1826, Until Fri08/21/18 [...] mg (CANCELED) 2044 (Given - Provider: Rosi Ceja, CLEMENT)2049 (Given - Provider: Rosi Ceja RN) 0.2-0.4 [...] (COMPLET ED) 1115 (Given - Provider: Trent See RN) 3 mg (0.3 mL), Subcutaneous, ONCE [...] Until 08/22/18 at 183, Pain, moderate pain (4-6), Initial dose 5mg. [...] tarting Fri08/21/18 at 2003, Until 08/22/18 at 1838, flush, Flush pertains to all indwelling lines. [...] ing Fri08/21/18 at 2002, Until 08/22/18 at 1838, Pain, severe pain (7-10)
Initial dose 10mg. If pain control not adequate in 60 minutes, give additional 5mg
Routine documented in this encounter Care Teams Silk Folder Relationship Specialty Start Date End Date Richie Mendez DO PCP - General Family Medicine 03/27/[address] [place] [address] documented as of this encounter
--- OUTSIDE RECORDS SUMMARY | 2022-01-11 00:44 | XMS_ITS | Encounter Summary ---
:1940 Author Organization [facility] [place] [address] Care Team Providers Name Role Phone Richie Mendez DO Primary Care Provider Encounter Details Date Type Department Care Team Description 01/29/2019 Telephone Urology at [facility] Romi Velazquez MD [facility] [place] [address] [place] [id number] [phone] (Wo rk) Social History Tobacco Use Types Packs/Day Years Used Date Smoking Tobacco: Never Smokeless Tobacco: Never Alcohol Use Standard Drinks/Week Comments Yes 3 (1 standard drink = 0.6 oz pure alcoho l) 2 wine a week. Sex Assigned at Date Recorded Not on file documented as of this encounter Miscellaneous Notes Telephone Encounter - Kirt Suero - 01/29/2019 11:[address] scan order to [facility] [phone] - they will protocol and call pt to schedule. documented in this encounter Plan of Treatment Not on filedocumented as of this encounter Visit Diagnoses Not on filedocumented in this encounter Care Teams Printing Supplies Sales Representative Relationship Specialty Start Date End Date Richie Mendez DO PCP - General Family Medicine 03/27/18 [address] [place] [address] documented as of this encounter
--- NOTE | 2022-01-11 09:30 | DI.MAMMO_ITS ---
Exam(s) MAMMO SCREENING EXAM: MAMMO SCREENING CLINICAL HISTORY: screening TECHNIQUE: Mammograms were interpreted according to the usual protocol including computer analysis w [employer] [place] CAD system, tomosynthesis and C-view imaging. COMPARISON: FINDINGS: The breasts are of moderate density with fairly symmetrical distribution of fibroglandular tissue. N o dominant mass or clumped microcalcification is identified in either breast. The current examinatio n is compared with previous examinations including December 2019 and there has been no gross interval change in appearance in comparison with the prior studies. IMPRESSION: No specific evidence of malignancy at this time. Routine screening examinations are suggested at yea rly intervals due to the family history of breast carcinoma. BI-RADS Category 1 - Negative Breast Density - Category B - Scattered areas of fibroglandular density
== END ==
PROVIDERS: PCP Family Medicine; Visit Provider Obstetrics & Gynecology
DX: Z12.31 Encounter for screening mammogram for malignant neoplasm of breast (principal)
CPT/HCPCS: 77063; 77067

== ENCOUNTER 2022-02-07 10:19 | Outpatient (CLI) | payer MEDICARE, SELFPAY ==
[2022-02-07 10:27] LABS: Anion Gap 5.6 mmol/L (3-11); BUN 19 mg/dL (7-18); CO2 28.4 mmol/L (21.0-32.0); CREATININE 1.1 mg/dL (0.55-1.02); Calcium 9.6 mg/dL (8.5-10.1); Chloride 101 mmol/L (98-107); Estimated GFR 51.11 (mL/min/1.73m2); Glucose 95 mg/dL (74-106); Potassium 3.9 mmol/L (3.5-5.1); Sodium 135 mmol/L (136-145)
== END 2022-02-07 10:20 | disposition home or self-care (01) ==
LOC: LBO 10:20
PROVIDERS: PCP Family Medicine; Visit Provider Family Medicine
DX: Z90.5 Acquired absence of kidney (principal)
CPT/HCPCS: 36415; 80048

== ENCOUNTER 2022-03-11 11:28 | Outpatient (CLI) | payer MEDICARE, SELFPAY ==
--- NOTE | 2022-03-11 11:00 | DI.RAD_ITS ---
Exam(s) XR SHOULDER RT COMPLETE 2+V EXAM: XR SHOULDER RT COMPLETE 2+V CLINICAL HISTORY: RIGHT SHOULDER INJURY. TECHNIQUE: 2D digital imaging was performed. Five views. COMPARISON: No exams were available for comparison FINDINGS: BONES: No acute fracture is present. No bony destructive lesion is seen. Spurring is noted at the un dersurface of the acromion. JOINTS: No dislocation present. Mild spurring at the rim of the glenoid. SOFT TISSUE: Normal. IMPRESSION: Mild degenerative changes DATA REPOSITORY: RADIATION DOSE DELIVERED:
== END 2022-03-11 11:29 | disposition home or self-care (01) ==
LOC: DIORS 11:29
PROVIDERS: PCP Family Medicine; Referring Provider Family Medicine; Visit Provider Student in an Organized Health Care Education/Training Program
DX: M75.21 Bicipital tendinitis, right shoulder; M75.81 Other shoulder lesions, right shoulder
CPT/HCPCS: 20610; 73030; J1040

== ENCOUNTER 2022-12-06 01:39 | Outpatient (CLI) | payer MEDICARE, SELFPAY ==
--- NOTE | 2022-12-06 08:30 | DI.RAD_ITS ---
Exam(s) XR CHEST 2V PA LATERAL EXAM: XR CHEST 2V PA LATERAL CLINICAL HISTORY: CARRILLO, post covid chronic dyspnea, R06.09, U09.9. TECHNIQUE: 2D digital imaging was performed. COMPARISON: No exams were available for comparison FINDINGS: 2 views: Heart size is normal. The mediastinum is not widened. Lungs are clear. No infiltrates nor pleural effusions. IMPRESSION: No acute pulmonary findings. DATA REPOSITORY: RADIATION DOSE DELIVERED:
[2022-12-06] MEDS: Levalbuterol HFA 15 GM INH 4 PUFF IH (16:01)
[2022-12-06] MEDS: Inhaler, Assist Device 1 EACH MC (16:02)
--- NOTE | 2022-12-09 07:47 | W.PFT ---
Date of service: 12/06/22 Time of Service: 14:56 Pulmonary Function Test Result Indications: Dyspnea Interpretation Spirometry: No airflow limitation. No bronchodilator response. Lung Volumes: Normal lung volumes Diffusion Capacity: Normal diffusion Airway Pressure: Normal airways resistance Impression Normal pulmonary function testing Clinical Correlation therefore is recommended.
== END 2022-12-06 01:40 | disposition home or self-care (01) ==
LOC: RT 01:39
PROVIDERS: PCP Family Medicine; Visit Provider Family Medicine
DX: R06.09 Other forms of dyspnea (principal); U09.9 Post COVID-19 condition, unspecified
CPT/HCPCS: 94060; 94726; 94729; 71046

== ENCOUNTER → 2023-01-14 01:49 | Outpatient (CLI) | payer MEDICARE, SELFPAY ==
--- NOTE | 2023-01-14 07:30 | DI.US_ITS ---
APPROVED REPORT EXAM: Comprehensive 2D, Doppler, and color-flow Echocardiogram Patient Location: Out-Patient Proofreader: Britni Fallon RDCS (AE) Indications: Dyspnea on exertion, Aortic regurgitation, Post covid Other Information Study Quality: Adequate Conclusion Normal left ventricular wall thickness and chamber size. Ejection fraction is 60%. Wall motion is n ormal. Diastolic function is normal for age Normal right ventricular size and systolic function Both atria are normal in size Aortic valve is trileaflet and mildly sclerotic with mild regurgitation Mild mitral annular calcification. Trace mitral regurgitation Wall motion Left Ventricle The left ventricle is normal size. The left ventricular systolic function is normal. The left ventric ular ejection fraction is within the normal range. There is normal left ventricular wall thickness. T here is normal LV segmental wall motion. There is no ventricular septal defect visualized. LVEF is 60 %. Right Ventricle The right ventricle is normal size. The right ventricular systolic function is normal. Atria The left atrium size is normal. The right atrium size is normal. The interatrial septum is intact wit h no evidence for an atrial septal defect. Aortic Valve The aortic valve is mildly sclerotic Aortic valve is trileaflet. There is no aortic valvular stenosis . mild aortic regurgitation. Mitral Valve Mild mitral annular calcification. No evidence of mitral valve stenosis. Trace mitral regurgitation. Tricuspid Valve The tricuspid valve is normal in structure. There is no tricuspid valve stenosis. Trace tricuspid reg urgitation. Pulmonic Valve The pulmonary valve is normal in structure. There is no pulmonic valvular stenosis. Trace pulmonic re gurgitation. Great Vessels The aortic root is normal in size. The ascending aorta is normal in size. Aortic arch is normal in ca liber. IVC is normal in size and collapses >50% with inspiration. Pericardium There is no pericardial effusion. 2D Dimensions IVSD d PLAX 1.05 cm F: 0.6-1.0 Ao Root d 2.60 cm F: 2.7 - 3.3 LVPW d PLAX 0.78 cm F: 0.6 - 1.0 Ao Asc Diam d 3.06 cm F: 2.3 - 3.1 LVID d PLAX 3.56 cm F: 3.8 - 5.2 LVDs 2.45 cm F: 2.2 - 3.5 LV EF Teichholz 59.9 % FS 31.14 % LV EDV (Teich) 53.0 mL LV ESV (Teich) 21.3 mL M-Mode TAPSE 1.77 cm (M/F) >1.7 Auto EF LV EDV A4C 56.3 mL LV EDV A2C 59.2 mL LV EDV BP 57.9 mL LV ESV A4C 24.3 mL LV ESV A2C 23.6 mL LV ESV BP 24.1 mL LVEF(%) A4C 56.9 % LVEF(%) A2C 60.1 % LVEF(%) BP 58.4 % LV SV A4C 32.0 ml LV SV A2C 35.6 ml LV SV BP 33.8 ml LV CO A4C 2.3 L/min LV CO A2C 2.7 L/min LV CO BP 2.5 L/min HR A4C 72.88 BPM HR A2C 76.76 BPM LV EDV Index (BP) LA Volume LA Length A4C 3.6 cm LA Length A2C 4.0 cm LA Area A4C s 9.80 cm2 LA Area A2C s 11.13 cm2 LA Vol A4C A-L 22.42 mL LA Vol A2C A-L 26.24 mL LA Vol Biplane A-L 25.5 mL LA Vol/BSA A4C A-L LA Vol/BSA A2C A-L LA Vol/BSA BP A-L 16.4 mL/m2 LA Vol A4C MOD 21.0 mL LA Vol A2C MOD 24.0 mL LA Vol BP MOD 23.4 mL RA Volume RA Area A4C 9.0 cm2 RA ESV A4C (A-L) 16.9mL RA Vol/BSA A4C A-L RA Length A4C 4.0 cm RA ESV A4C (MOD) 15.9mL LV Diastology MV E' medial 0.036 (>0.07 m/s) MV E Vmax 0.64 (0.4-1.3 m/s) MV E/E' MED 18.04 (<14) MV A Vmax 0.90 (0.4-1.3 m/s) MV E' lateral 0.055 (>0.1 m/s) E/A Ratio 0.7 MV E/E' LAT 11.72 (<14) MV E' Average 0.045 m/s MV E/E'(average) 14.20 Aortic Valve AoV Vmax 1.28 m/s LVOT Vmax 1.04 m/s AoV Peak Grad 31.9 mmHg LVOT Peak Grad 4.3 mmHg AoV Area (Vmax) 2.28 cm2 LVOT VTI 0.226 m AoV VTI 0.298 m LVOT Mean Grad 2.6 mmHg AoV Mean Jarek. 0.93 m/s LVOT SV 63.82 mL AoV Mean Grad 3.9 mmHg LVOT Diam s 1.85 cm AoV Area (VTI) 2.14 cm2 AV Regurg Peak Gr. 57.05 mmHg Velocity Ratio 0.81 AR Decel Holmes 2.3m/sec2 AR DT 1653 msec AR PHT 479 msec AR Vmax 3.78 m/s Mitral Valve MV DT 209 (160-240 msec) MV Vmax TIPS 1.00 m/s MV Mean Grad 1.7 (<2mmHg) MV VTI 0.244 m Pulmonary Valve PV Vmax 0.74 (0.5-1.5 m/s) RVOT Vmax 0.56 m/s PV Peak Grad 2.2 mmHg RVOT Peak Gr. 1.2 mmHg PV Mean Jarek 0.50 m/s RVOT VTI 0.148 m PV Mean Grad 1.2 mmHg RVOT Mean Gr. 0.7 mmHg Tricuspid Valve RA Pressure 3.00 mmHg TR Vmax 2.15 m/s TV S' 0.10 m/s TR Peak Grad 18.4 mmHg RVSP (TR) 21.4 mmHg
== END ==
PROVIDERS: PCP Family Medicine; Visit Provider Family Medicine
DX: R06.09 Other forms of dyspnea (principal); U09.9 Post COVID-19 condition, unspecified
CPT/HCPCS: 93306

== ENCOUNTER 2023-02-04 02:44 | Outpatient (CLI) | payer MEDICARE, SELFPAY ==
[2023-02-04 10:38] LABS: Anion Gap 9.1 mmol/L (3-11); BUN 15 mg/dL (7-18); CO2 26.9 mmol/L (21.0-32.0); CREATININE 1.2 mg/dL (0.55-1.02); Calcium 9.5 mg/dL (8.5-10.1); Chloride 101 mmol/L (98-107); Estimated GFR 45.76 (mL/min/1.73m2); Glucose 107 mg/dL (74-106); Potassium 3.7 mmol/L (3.5-5.1); Sodium 137 mmol/L (136-145)
== END 2023-02-04 02:45 | disposition home or self-care (01) ==
LOC: LBO 02:44
PROVIDERS: PCP Family Medicine; Visit Provider Family Medicine
DX: N18.9 Chronic kidney disease, unspecified (principal)
CPT/HCPCS: 36415; 80048

== ENCOUNTER → 2023-09-23 16:02 | Outpatient (CLI) | payer MEDICARE, SELFPAY ==
--- NOTE | 2023-09-23 11:40 | DI.RAD_ITS ---
Exam(s) XR CHEST 2V PA LATERAL EXAM: XR CHEST 2V PA LATERAL CLINICAL HISTORY: right breast and axilla pain 2 weeks, mastodynia, N64.4. TECHNIQUE: 2D digital imaging was performed. COMPARISON: CR XR CHEST 2V PA LATERAL from 12/06/2022 FINDINGS: 2 views: Heart size is normal. The mediastinum is not widened. Lungs are clear. No infiltrates nor pleural effusions. IMPRESSION: No acute pulmonary findings. DATA REPOSITORY: RADIATION DOSE DELIVERED:
--- OUTSIDE RECORDS SUMMARY | 2023-09-23 16:05 | XMS_ITS | Encounter Summary ---
Author Organization [facility] Address [facility] [place] [address] Care Team Providers Care Land Examiner Name Role Phone Richie Mendez Primary Care Provider [phone] Encounter Details Date Type Department Care Team (Late st Contact Info) Description 01/11/2019 [place] [id number] Romi Velazquez MD [facility] [place] [address] Social History Tobacco Use Types Packs/Day Years Used Date Smoking Tobacco: Never Smokeless Tobacco: Never Alcohol Use Standard Drinks/Week Comments Yes 3 (1 standard drink = 0.6 oz pur e alcohol) 2 wine a week. Sex and Gender Information Value Date Recorded Sex Assigned at Not on file Gender Identity Not on file Sexual Orientation Not on file documented as of this encounter Miscellaneous Notes * Telephone Encounter - Kirt Suero - 01/11/2019 1:48 PM EST PHONE: [phone] When she was seen on 12/10/18, she told Dr. Velazquez she had pain around the belly button on the left side. Now, everyday it hurts. She wants to hear from Dr. Velazquez that all is well or that she needs to see to come back and be seenor if she should see someone local. She is not sure if this is normal. She says she can wait till Friday when Dr. Velazquez returns. documented in this encounter Plan of Treatment Not on file documented as of this encounter Visit Diagnoses Not on filedocumented in this encounter Care Teams Land Examiner Relationship Specialty Start Date End Date [place] [address] [place] [address] PCP - General Family Medicine 03/27/18 documented as of this encounter
--- OUTSIDE RECORDS SUMMARY | 2023-09-23 16:05 | XMS_ITS | Encounter Summary ---
Author Organization [facility] Address [facility] [place] [address] Care Team Providers Care Transportation Dispatcher Name Role Phone Richie Mendez DO Primary Care Provider [phone] Encounter Details Date Type Department Care Team (Late st Contact Info) Description 09/10/2018 1:00 PM EDT [place] [address] Romi Velazquez MD [facility] [place] [address] Follow up Social History Tobacco Use Types Packs/Day Years [...] - documented in this encounter Progress Notes * Romi Velazquez MD - 09/10/2018 1:00 PM EDT UROLOGY OUTPATIENT FOLLOW UP CHIEF COMPLAINT: Follow up surgery HISTORY OF PRESENT ILLNESS Paz Phillips is a 77 y.o. female with a long standing history of recurrent urolithiasis presenting with her for discussion of left hydroureteronephrosis. Her pertinent urologic historyis as follows. 2002: She recalls undergoing SWL in [place] which failed to fully fragment the stone; she then underwent ureteroscopy (reportedly complex/difficult) as well as repeat SWL; she is unsure if she evercleared all of the stone fragments. By report, a KUB was obtained in 2006 which did not show definote stone. 2009: She was seen in [place] with 3-4 months of moderate LLQ pain radiating towards her psilteral labia as well as suspected bladder spasms and was found to have obstruction of the left ureter on CT imaging. She underwent attempt at URS by Dr. Black at [facility]. She was found to have left hydroureteronephrosis with thinned renal parenchyma of an atrophic left kidney. Ureteroscopy was performed but no lumen could be initially identified at/ above the stone. A wire could not be manpulated beyond the stone. A repeat urs was performed approx 1 week later; ureteral access above the stone still could not be obtained, but as planned the stone was [...] unable to be advanced beyond the defect. offered observation vs. Hand assisted lap nephrectomy. 03/27/18: seen by me at [facility]. At that time she reports her LLQ [...] children and frequently hikes with them (how shetore her gluteus). We discussed management options including obs, [...] . Had some burning across the lower abdomen,this has improved. Voiding without difficulty. 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
--- OUTSIDE RECORDS SUMMARY | 2023-09-23 16:05 | XMS_ITS | Encounter Summary ---
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 [employer] Name Role Phone Richie Mendez DO Primary Care Provider [phone] Reason for Visit * Auth/Cert Specialty Diagnoses / Procedures Referred By Paul pascal Referred To Contact Diagnoses Atrophic kidney LEFT ATROPHIC KIDNEY/ PAIN Procedures PRO LAP, RADICAL NEPHRECTOMY @LAPAROSCOPY, RADICAL NEPHRECTOMY (WRVU 25.06) Referral ID Status Reason Start Date Expiration Date Visits Re quested Visits Authorized [id number] 1 1 Encounter Details Date Type Department Care Team (Latest Contact Info) Description 08/21/2018 10:03 AM EDT - 08/22/2018 4:39 PM EDT Hospital Encounter [address] [place] [id number] Romi Velazquez MD [facility] [place] [address] Discharge Disposition: Home Social History Tobacco Use Types Packs/Day Years [...] 36.6 ??C (97.9 ??F) 08/22/2018 12:00 PM E DT Respiratory Rate 16 08/22/2018 12:00 PM EDT Oxygen Saturation 97% 08/22/2018 12:00 PM EDT Inhaled Oxygen Concentration - - Weight 61.2 kg (135 lb) 08/22/2018 2:35 AM EDT Height 152.4 cm (5') 08/22/2018 2:35 AM EDT Body Mass Index 26.37 08/22/2018 2:35 AM EDT documented in this encounter Discharge Summaries * Azael Robles MD - 08/22/2018 3:18 PM EDT Discharge Summary Patient Name: Paz Phillips Patient Age: 77 y.o. Language: Northern Irish Race: White Ethnicity: Not nor Admit date: [...] hx of IBS, GERD, and urolithiasis/recurrent infection w/left ureteral stricture/hydronephrosis in context of atrophic left [...] Hospital Course: Patient was admitted electively to [facility] via the same day surgery program and [...] check. She will be sent home with POKeflex QID for 5 days as prophylaxis. Prescriptions have been sent to [facility] in [facility] Vital Signs at Discharge: Weight: Wt Readings from Last 1 Encounters: 08/22/ 61.2 kg (135 lb) Height: Ht Readings [...] 5 PM and weekends, and ask for admissions coordinator Urologist. Special Considerations for Solitary Kidneys: Do not take megavitamins, herbal products, and NSAID pain relievers (such as ibuprofen, Motrin, Advil, naproxen, Aleve)., unless instructed otherwise by your Physician. Pharmacy : Please be sure that you take adequate fluids with all medication. It is important to discuss any medications, dietary supplements with your physician before startingthem. Please be sure to remind all prescribing [...] surgery is return of bowel function, gas andconstipation. Take stool softeners as directed until bowels return to normal. If needed, take a laxative such as Miralax, Senna, Dulcolax. Generic is fine. Antibiotics: Please take the prescribed antibiotics (Keflex) to prevent urinary tract infections asdirected. Pain Meds: For pain, please take tylenol 1000mg every 6 hours as needed. If you pain is not controlled by these medications, you may take the narcotic pain medications as prescribed (oxycodone 5mg every 4-6 hours). Be sure to take a stool softener (colace or miralax) to prevent constipation, commonwith this medication Driving: No driving while still [...] not soak incision(s) (i.e. soaking in bath, hottub, or swimming) until told you may do so by a doctor, as this may promote a wound infection. Wound Care: You may cover wounds with sterile gauze as needed to prevent incision rubbing on clothes or for any seepage. Your sutures are absorbable and do not need to be removed. Your incision is covered by a layer of surgical glue which will peel off on its own. Do not pick it off. Urology Follow up Appointments: Your surgical follow-up appointment will be scheduled with Dr. Velazquez in approximately 2 weeks. Appointment will be mailed to you. Please call (clinic number for appointments) to confirm date and time of your appointment if you do not receive it. General Instructions None Follow-Up: No future appointments. Primary Care Provider: Richie Mendez DO [phone] Follow-up Recommendations for Providers: * Call your [...] was managed by the Urology Team at [facility]. If you have any questions or concerns, please feel free to contact us. Provider Contact Information: Urology Clinic: [facility] (after business hours): Discharge References/Attachments None Associated attestation - Je Persaud III, MD - 08/23/2018 7:40 AM EDT I have seen the patient and reviewed the resident's above history and I agree with the details as written. The assessment and plan were formulated in discussion with me and I agree with them as documented. Je Persaud III, MD ase certified technician and Pediatrics [facility] [employer] Senior Staff Pediatric Urologist [facility] documented in this encounter Discharge Instructions * Patient Instructions* Azael Robles MD - 08/21/2018 2:38 PM EDT [...] 5 PM and weekends, and ask for admissions coordinator Urologist. Special Considerations for Solitary Kidneys: Do not take megavitamins, herbal products, and NSAID pain relievers (such as ibuprofen, Motrin, Advil, naproxen, Aleve)., unless instructed otherwise by your Physician. Pharmacy : Please be sure that you take adequate fluids with all medication. It is important to discuss any medications, dietary supplements with your physician before startingthem. Please be sure to remind all prescribing [...] surgery is return of bowel function, gas andconstipation. Take stool softeners as directed until bowels return to normal. If needed, take a laxative such as Miralax, Senna, Dulcolax. Generic is fine. Antibiotics: Please take the prescribed antibiotics (Keflex) to prevent urinary tract infections asdirected. Pain Meds: For pain, please take tylenol 1000mg every 6 hours as needed. If you pain is not controlled by these medications, you may take the narcotic pain medications as prescribed (oxycodone 5mg every 4-6 hours). Be sure to take a stool softener (colace or miralax) to prevent constipation, commonwith this medication Driving: No driving while still [...] not soak incision(s) (i.e. soaking in bath, hottub, or swimming) until told you may do so by a doctor, as this may promote a wound infection. Wound Care: You may cover wounds with sterile gauze as needed to prevent incision rubbing on clothes or for any seepage. Your sutures are absorbable and do not need to be removed. Your incision is covered by a layer of surgical glue which will peel off on its own. Do not pick it off. Urology Follow up Appointments: Your surgical follow-up appointment will be scheduled with Dr. Velazquez in approximately 2 weeks. Appointment will be mailed to you. Please call (clinic number for appointments) to confirm date and time of your appointment if you do not receive it. documented in this encounter Medications at Time of Discharge Medication Sig Dispensed Refills Start Date End Date acetaminophen (TYLENOL) 500 mg Tablet Take 1,000 mg by mouth every 6 hours as needed for Pain. cephALEXin (KEFLEX) 250 mg Capsule Take 1 capsule by mouth every 6 hours for 5 days. 20 capsule 08/22/2018 08/27/2018 oxyCODONE (ROXICODONE) 5 mg Tablet Take 1 tablet by mouth every 4 hours as needed for Pain. 15 tablet 08/22/2018 12/10/2018 documented as of this encounter Progress Notes * Rachel Dutton RN - 08/22/2018 4:39 PM EDT Reviewed AVS; pt returned verbalization of discharge instructions. New Rx sent electronically to pt's home pharmacy. PIV removed. Patient left [facility] in a wheelchair accompanied by 2 [place] staff. * Beth Fernández MD - 08/22/2018 4:39 PM EDT Spoke to patient via telephone. Peripheral nerve block resolved appropriately. No residual weakness/numbness/decreased sensation. No sign of infection at injection site. Tolerating POs appropriately.Patient very satisfied with nerve block. BETH FERNÁNDEZ MD 08/24/2018 * Alicia Muller RN - 08/22/2018 3:31 AM EDT Pt admitted to 211B at 0245. Oriented to room, call light [...] (135 lb) SpO2 96% BMI 26.37 kg/m?? * Anushka Azevedo MD - 08/22/2018 3:22 AM EDT UROLOGY POST-OP NOTE Paz Pippa Phillips is a 77 y.o. [...] Moving spontaneously, warm. SCDs in place. Assessment/Plan Pazluther Phillips is a 77 y.o. female s/p . Stable post-op. - Pain well-controlled on current regimen. - Hemodynamically stable. - UOP adequate, continue to monitor. - SCDs in place. - Continue post-op plan per primary team. * Monserrat Greene RN - 08/21/2018 11:36 PM EDT 2330 - report from CLEMENT Jeffery and care resumed. Monitor alarms set per floor protocols. Pt will floor board overnight in pacu bay 22. Pt identified with id band and per pt verbalized. Pt assessed. Alertand oriented x 4. Perrl, morejon. Clear voice. [...] - MD aware Per reporting RN. Pt deniesnausea. jorge a sips water. Yael Azevedo MD for ivf maintenance order. Scott intact and secured to bedside bag - good amounts clear yellow urine. Pt in bed - tipped to left side. Call al in reach. Nopt belongings, family left for home earlier. 0130 - pt sleeping well. Stable. Am labs sent. 0145 - report to CLEMENT Matute and pt readied for transfer to [facility] via bed. * Rosi Ceja RN - 08/21/2018 7:52 PM [...] lower abdominal pain of 6/10. See MAR formeds given. 2056- Marked ready for visitation. 2099- Pt has met pacu phase II criteria. Will board in the PACU. Family ( & son) at for visitation. 2210- Report to Jennifer Owens [employer]. documented in this encounter H&P Notes * Romi Velazquez MD - 08/21/2018 12:16 PM EDT Images from the original note were not included. Interval H&P HPI: Paz Phillips is a 77 y.o. female w/ hx of IBS, GERD, and urolithiasis/recurrent infection w/left ureteral stricture/hydronephrosis in context of atrophic left [...] hydroureteronephrosis. Her pertinent urologic historyis as follows. ?? 2002: She recalls undergoing SWL in [place] which failed to fully fragment the stone; she then underwent ureteroscopy (reportedly complex/difficult) as well as repeat SWL; she is unsure if she evercleared all of the stone fragments. By report, a KUB was obtained in 2006 which did not show definote stone. ?? 2009: She was seen in [place] with 3-4 months of moderate LLQ pain radiating towards her psilteral labia as well as suspected bladder spasms and was found to have obstruction of the left ureter on CT imaging. She underwent attempt at URS by Dr. Black at [facility]. She was found to [...] nephrectomy. ? 03/27/18: seen by me at [facility]. At that time she reports her LLQ [...] URS SWL Tubal ligation ?? 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 Ponce and Dr. Moralez's experiences, and nephrectomy-open vs. Lap (hand assist, straight lap, vs. Robotic assist lap). We discussed the limitation of each, as well as possible scenarios. With regard to nephrectomy we discussed the nature of the procedure and recovery with lapprocedures typically having shorter recovery. I have relayed that in my hands all laparoscopic options would have similar recovery times. We discussed risks including bleeding requiring transfusion, i nfection, damage to surrounding structures including bowel, pancreas, spleen, persistent or recurrent pain, repeat procedures, and the cardiopulmonary risks of a [...] ? documented in this encounter Miscellaneous Notes * Plan of Care - Rachel Dutton RN [...] [current deficits]: Patient has 2 or more activediagnoses, recent surgery, has an actively infusing IV [...] if applicable: N/A CPG GOAL OUTCOME EVALUATION: * Op Note - Romi Velazquez MD - 08/22/2018 9:38 AM EDT Operative Note Patient Name: Paz Phillips : [id number] MR#: [id number] Case Date: 08/21/2018 Surgeon: Surgeon(s) and Role: [...] hx of IBS, GERD, and urolithiasis/recurrent infection w/left ureteral stricture/hydronephrosis in context of atrophic left kidney; this has been causing her intermittent left sided flank pain. She presents today for left laparoscopic nephrectomy. Procedure: The patient was identified in the pre-operative holding area. Consent was verified. The correct side of the procedure was marked. The patient was taken to the operating room and placed supine on the operating table. General anesthesia was induced, prophylactic IV antibiotics were infused consistingof Kefzol and Gentamicin, veno dynes were placed, and subcutaneous heparin was administered for DVTprophylaxis. A 14 F urethral catheter was inserted [...] the OR team confirming the patient's identity, plannedprocedure, and laterality. ?? A 7cm periumbilical midline incision was made using a #15blade This was carried down to the level of the rectus fascia using Bovie electrocautery. The linea [...] through the hand port trocar. Two additional portswere placed, an 11mm port at the mid-clavicular line approximately 2cm caudal to the costal margin and a second approximately 6cm below and lateral to the hand assist port. Using a combination of blunt and sharp dissection, the thin adhesions between the abdominal sidewall and the abdominal contents were taken down. Thicker adhesions were taken down with the Harmonic scalpel. Using the Harmonic scalpel for the remainder of the procedure, the LEFT colon was mobilized from the LEFT abdominal wall following the line of Toldt towards the pelvis. The colon was then gradually reflected medially and protected during the rest of the procedure. The LEFT ureter was identified and noted to be quite dilated and tortuous. This was dissected from the peritoneum revealing the gonadal vein. Given the size of the kidney and ureter, a fourth 5mm investigative assistant port was place 1cm lateral and superior to the left lower quadrant port to allow for a Amado to assist in retraction. Thegonadal vein was then dissected to the level of [...] 35mm vascular staple load. The renal vein was similarly taken with a 35mm vascular stapler proximal [...] visualization was limited. The distal ureter was completelyobliterated with densely impacted calcified fragments. These were unable to be manipulated or retrieved with a basket, nor allow antegrade passage of [...] was placed under the spleen near the hilumand posterior wall. The colon was replaced in its anatomic position. There were no obvious bowel ormesenteric defects. A Jonathon Tompson was used to close all 12mm ports with 2-0 vicryl under direct v ision. All laparoscopic ports were removed under direct visualization. The midline hand port incision fascia was closed w/ interrupted figure of 8 interrupted 1-0 prolene. The subcutaneous tissue wasthen re-approximated with 2- 0 monocryl. Finally, 4-0 mnocryl running subcuticular running stitches were used to close the skin for the midline incision and all port sites. Dermabond glue was applied to all incisions. The patient tolerated the procedure well and was awakened from anesthesia with no adverse events. Asponge and instrument count was performed and the counts were correct. The patient was awakened, extubated, and taken to the recovery area in stable condition. Dr. Velazquez, the attending surgeon, was present for the entire procedure. Attestation: Case Date: 08/21/2018 - 08/22/2018 I was present and I participated during the entire procedure (does not need to include opening and closing). Romi Velazquez MD 08/22/2018 * Plan of Care - Alicia Muller RN - 08/22/2018 3:39 AM EDT OUTCOME EVALUATION NOTE: OUTCOME SUMMARY: No acute events this shift. Admitted to unit at 0245. A&Ox4. Rates pain between 0-2/10, treatedw/ scheduled tylenol. Adequate UOP via scott. PLAN MOVING FORWARD: Potential DC today or tomorrow. LR@100ml/hr. Mobilize. Continue to monitor pain, labs, and 1&O.Notify MDs as necessary for pertinent pt condition [...] for sensory deficits provided, if applicable: Yes ptwears glasses CPG GOAL OUTCOME EVALUATION: Problem: Patient [...] Control Outcome: Ongoing (Interventions Implemented as Appropriate) 08/22/188 08/22/18 0300 Safety Interventions Isolation Precautions standard precautions maintained -- Infection Prevention rest/sleep promoted;environmental surveillance performed;single patient room provided -- Coping Strategies Supportive Measures -- decision-making supported;goal setting facilitated;relaxation techniques promoted;self-care encouraged * Brief Op Note - Tracie Angela MD - 08/21/2018 7:07 PM EDT Brief Operative Note Patient Name: Paz Phillips : [id number] MR#: [id number] Case Date: 08/21/2018 Surgeon: Surgeon(s) and Role: [...] on file documented as of this encounter Procedures Procedure Name Priority Date/Time Associated Diagnosis Comments HEMOGRAM Routine 08/22/2018 1:24 AM EDT DIFFERENTIAL, AUTOMATED Routine 08/22/2018 1:24 AM EDT CREATININE Routine 08/22/2018 1:24 AM EDT CBC (WITH DIFF) Routine 08/22/2018 1:24 AM EDT BUN Routine 08/22/2018 1:24 AM EDT ELECTROLYTES PANEL Routine 08/22/2018 1: 24 AM EDT HEMOGRAM Routine 08/21/2018 8:06 PM EDT DIFFERENTIAL, AUTOMATED Routine 08/21/2018 8:06 PM EDT CBC (WITH DIFF) Routine 08/21/2018 8:06 PM EDT BASIC METABOLIC PANEL Routine 08/21/2018 8:06 PM EDT SPECIMEN TO PATHOLOGY Routine 08/21/2018 6:05 PM EDT SURGICAL PATHOLOGY REPORT Routine 08/21/2018 6:03 PM EDT BLOOD GAS ARTERIAL POC Routine 08/21/2018 2:45 PM EDT @LAPAROSCOPY, RADICAL NEPHRECTOMY (WRVU 25.06) Yes 08/21/2018 1:07 PM EDT LEFT ATROPHIC KIDNEY/ PAIN documented in this encounter Results * (ABNORMAL) Differential, Automated (08/22/2018 1:24 AM EDT) Neutrophil % 94.9 % [facility] Neutrophil Absolute 13.32(H) 1.70 - 6.10 x10(3)/mc L [facility] Lymph % 1.7 % [facility] Lymphocytes Abs 0.2(L) 0.9 - 3.2 x10(3)/ L [facility] Monocyte % 3.1 % [facility] Monocyte Abs 0.4 0.3 - 0.9 x10(3)/ L [facility] Eos % 0.0 % [facility] Eosinophils Abs 0.0 0.0 - 0.4 x10(3)/[facility] Basophil % 0.1 % [facility] Baso Absolute 0.0 0.0 - 0.1 x10(3)/ L [facility] Immature Gran % 0.20 % [facility] Comment: Immature granulocytes(IG's)percentage and absolute count will include metamyelocytes, myelocytes, and promyelocytes. Blood smears from CBCs yielding IG's will be scanned manually for concordance. If this scan disagrees with the automated IG or if promyelocytes are noted, a manual differential will be performed. Immature Gran Absolute 0.03 0.00 - 0.04 x10(3)/ L [facility] Blood specimen (specimen) 08/22/2018 1:24 AM EDT 08/22/2018 1:33 AM EDT Narrative Resulting Agency Comment Spec In Lab Tracie Angela MD HEMATOLOGY ORDERABLE S [facility] [place] [address] * (ABNORMAL) Hemogram (08/22/2018 1:24 AM EDT) Pathologist [facility] White Blood Cell 14.0(H) 4.0 - 9.5 x10(3)/mc L [facility] Red Blood Cell 4.55 4.00 - 5.21 x10(6)/mc L [facility] Hemoglobin 13.3 11.7 - 15.5 gm/dL [facility] Hematocrit 41.9 35.7 - 45.8 % [facility] Mean Cell Volume 92.1 82.6 - 94.4 fL [facility] Mean Cell Hemoglobin 29.2 27.1 - 32.0 pg [facility] Mean Cell Hemoglobin Concentration 31.7 31.7 - 35.0 gm/dL [facility] Platelet 164 145 - 357 x10(3)/ L [facility] RDW Standard Deviation 48.4(H) 37.0 - 46.0 fL [facility] RDW coefficient of variation 14.3(H) 11.5 - 14.1 % [facility] Mean Platelet Volume 11.2 7.6 - 12.9 fL [facility] NRBC% auto 0.0 % [facility] NRBC Absolute 0.000 0.000 - 0.000 x10(3)/[facility] Blood specimen (specimen) 08/22/2018 1:24 AM EDT 08/22/2018 1:33 AM EDT Narrative Resulting Agency Comment Spec In Lab Tracie Angela MD HEMATOLOGY ORDERABLE S [facility] [place] [address] * (ABNORMAL) Creatinine (08/22/2018 1:24 AM EDT) Creatinine 0.97 0.70 - 1.20 mg/dL [facility] Est Glomerular Filtration Rate 57(L) >=60 mL/min/1.7 3 m?? [facility] Comment: The eGFR was calculated using the CKD-EPI equation. As with all creatinine based estimates of kidney function, eGFR values calculated with the CKD-EPI equation are not accurate in patients with acute kidney failure, extremes of body mass or the acutely ill. [email or web address] eGFR 66 >=60 mL/min/1.7 3 m?? [facility] Comment: The eGFR was calculated using the CKD-EPI equation. As with all creatinine based estimates of kidney function, eGFR values calculated with the CKD-EPI equation are not accurate in patients with acute kidney failure, extremes of body mass or the acutely ill. [email or web address] Blood specimen (specimen) 08/22/2018 1:24 AM EDT 08/22/2018 1:33 AM EDT Narrative Resulting Agency Comment Spec In Lab Romi Velazquez MD CHEMISTRY ORDERABLES Performing Organization Address [facility] Co de Phone Number [facility] [place] [address] * BUN (08/22/2018 1:24 AM EDT) Blood Urea Nitrogen 9 8 - 18 mg/dL [facility] Blood specimen (specimen) 08/22/2018 1:24 AM EDT 08/22/2018 1:33 AM EDT Narrative Resulting Agency Comment Spec In Lab Romi Velazquez MD CHEMISTRY ORDERABLES Performing Organization Address [facility] de Phone Number [facility] [place] [address] * (ABNORMAL) Electrolytes panel (08/22/2018 1:24 AM EDT) Sodium 140 135 - 145 mmol/L [facility] Potassium 4.4 3.5 - 5.0 mmol/L [facility] Comment: Please note: ??Patients with WBC >100,000 may have falsely elevated Potassium levels. ??For accurate Potassium quantification in these patients send serum separator tube (gold top) for subsequent determinations. ??Contact the Clinical Chemistry Laboratory if there are any questions. Chloride 106 98 - 107 mmol/L [facility] Carbon Dioxide 21(L) 22 - 31 mmol/L [facility] Anion Gap 13 5 - 15 mmol/L [facility] Blood specimen (specimen) 08/22/2018 1:24 AM EDT 08/22/2018 1:33 AM EDT Narrative Resulting Agency Comment Spec In Lab Romi Velazquez MD CHEMISTRY ORDERABLES [facility] [place] [address] * (ABNORMAL) Differential, Automated (08/21/2018 8:06 PM EDT) Neutrophil % 93.8 % [facility] Neutrophil Absolute 13.01(H) 1.70 - 6.10 x10(3)/mc L [facility] Lymph % 2.6 % [facility] Lymphocytes Abs 0.4(L) 0.9 - 3.2 x10(3)/mc L [facility] Monocyte % 3.0 % [facility] Monocyte Abs 0.4 0.3 - 0.9 x10(3)/mc L [facility] Eos % 0.0 % [facility] Eosinophils Abs 0.0 0.0 - 0.4 x10(3)/mc L [facility] Basophil % 0.2 % [facility] Baso Absolute 0.0 0.0 - 0.1 x10(3)/mc L [facility] Immature Gran % 0.40 % [facility] Comment: Immature granulocytes(IG's)percentage and absolute count will include metamyelocytes, myelocytes, and promyelocytes. Blood smears from CBCs yielding IG's will be scanned manually for concordance. If this scan disagrees with the automated IG or if promyelocytes are noted, a manual differential will be performed. Immature Gran Absolute 0.05(H) 0.00 - 0.04 x10(3)/mc L [facility] Blood specimen (specimen) 08/21/2018 8:06 PM EDT 08/21/2018 8:15 PM EDT Narrative Resulting Agency Comment Spec In Lab Tracie Angela MD HEMATOLOGY ORDERABLE S [facility] [place] [address] * (ABNORMAL) Hemogram (08/21/2018 8:06 PM EDT) White Blood Cell 13.9(H) 4.0 - 9.5 x10(3)/[facility] Red Blood Cell 4.68 4.00 - 5.21 x10(6)/[facility] Hemoglobin 13.4 11.7 - 15.5 gm/dL [facility] Hematocrit 43.4 35.7 - 45.8 % [facility] Mean Cell Volume 92.7 82.6 - 94.4 fL [facility] Mean Cell Hemoglobin 28.6 27.1 - 32.0 pg [facility] Mean Cell Hemoglobin Concentration 30.9(L) 31.7 - 35.0 gm/dL [facility] Platelet 169 145 - 357 x10(3)/[facility] RDW Standard Deviation 47.7(H) 37.0 - 46.0 [facility] RDW coefficient of variation 14.0 11.5 - 14.1 % [facility] Mean Platelet Volume 11.4 7.6 - 12.9 fL [facility] NRBC% auto 0.0 % [facility] NRBC Absolute 0.000 0.000 - 0.000 x10(3)/ L [facility] Blood specimen (specimen) 08/21/2018 8:06 PM EDT 08/21/2018 8:15 PM EDT Narrative Resulting Agency Comment Spec In Lab Tracie Angela MD HEMATOLOGY ORDERABLE S [facility] [place] [address] * (ABNORMAL) Basic Metabolic Panel (non-fasting) (08/21/2018 8:06 PM EDT) Glucose 167 65 - 199 mg/dL [facility] Comment:Diabetes: >=200 mg/d L plus symptoms Blood Urea Nitrogen 9 8 - 18 mg/dL [facility] Creatinine 0.99 0.70 - 1.20 mg/dL [facility] Sodium 143 135 - 145 mmol/L [facility] Potassium 3.9 3.5 - 5.0 mmol/L [facility] Comment: Please note: ??Patients with WBC >100,000 may have falsely elevated Potassium levels. ??For accurate Potassium quantification in these patients send serum separator tube (gold top) for subsequent determinations. ??Contact the Clinical Chemistry Laboratory if there are any questions. Chloride 109(H) 98 - 107 mmol/L [facility] Carbon Dioxide 21(L) 22 - 31 mmol/L [facility] Anion Gap 13 5 - 15 mmol/L [facility] Calcium 8.3(L) 8.5 - 10.5 mg/dL [facility] Est Glomerular Filtration Rate 56(L) >=60 mL/min/1. 73 m?? [facility] Comment: The eGFR was calculated using the CKD-EPI equation. As with all creatinine based estimates of kidney function, eGFR values calculated with the CKD-EPI equation are not accurate in patients with acute kidney failure, extremes of body mass or the acutely ill. [email or web address] eGFR 65 >=60 mL/min/1. 73 m?? [facility] Comment: The eGFR was calculated using the CKD-EPI equation. As with all creatinine based estimates of kidney function, eGFR values calculated with the CKD-EPI equation are not accurate in patients with acute kidney failure, extremes of body mass or the acutely ill. [email or web address] Blood specimen (specimen) 08/21/2018 8:06 PM EDT 08/21/2018 8:15 PM EDT Narrative Resulting Agency Comment Spec In Lab Romi Velazquez MD CHEMISTRY ORDERABLES Performing Organization Address [facility] Co de Phone Number [facility] [place] [address] * Specimen to Pathology (08/21/2018 6:05 PM EDT) AP Specimen 08/21/2018 6:05 PM EDT 08/21/2018 6:05 PM EDT Narrative [facility] - 08/21/2018 6:05 PM EDT Specimen requisition ordered. ??Separate Pathology report to follow Romi Velazquez MD PATHOLOGY/CYTOLOGY O RDERABLES Performing Organization Address [facility] Co de Phone Number [facility] [place] [address] * Surgical Pathology Report (08/21/2018 6:03 PM EDT) Final Diagnosis [id number] ? Location: [facility]; 0211; B The signing pathologist has (i) examined the relevant preparation(s) for the specimen(s) and (ii) rendered or confirmed the diagnosis(es). . ?Surgical Pathology DIAGNOSIS Left kidney (nephrectomy): ?? 1. Hydronephrosis. ?? 2. Renocortical atrophy and chronic pyelonephritis. ?? 3. No evidence of malignancy. CR-0 Electronically signed by: ??Andrade JC, Kev Ferguson Verified: ??08/25/2018 ?Pathologist Performed at: ??-[facility] Dept. of Pathology, [place], [place] CLINICAL INFORMATION Specimen Submitted: A - Left kidney Clinical History and Diagnosis: Left atrophic kidney/pain SPECIMEN PROCESSING A - Labeled/Fixative : Left kidney, fresh. Quantity/Size: Single, 11.5 x 7.5 x 3.5 cm (overall), 146.4 grams. Tissue Description: Intact, extensively dilated and distorted kidney which on sectioning contains clear serous fluid. Parenchyma: No normal renal parenchyma is identified. The peripheral tissue is collapsed, fibrotic and areas are attenuated displaying a smooth lined cyst wall. 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 as follows: ?A1: Vascular and ureteral margins ?A2-A4: Cyst wall and possible parenchyma ejr 08/25/2018 2:53 PM EDT [facility] SPECIMEN FROM KIDNEY / Unknown 08/21/2018 6:03 PM EDT 08/21/2018 6:03 PM EDT Romi Velazquez MD PATHOLOGY/CYTOLOGY O MANDA [facility] [place] [address] * (ABNORMAL) BLOOD GAS 2 ARTERIAL (08/21/2018 2:45 PM EDT) pH, Arterial 7.40 7.35 - 7.45 [facility] PCO2, Arterial 34(L) 35 - 45 mmHg [facility] PO2, Arterial 270(H) 85 - 104 mmHg [facility] Bicarbonate, Arterial 20.7 20.0 - 26.0 mmol/L [facility] Base Excess, Arterial -4.0(L) -3.0 - 3.0 mmol/L [facility] Hgb Blood Gas 13.7 11.7 - 15.5 gm/dL [facility] Oxyhemoglobin, Arterial 99.0(H) 94.0 - 97.0 % [facility] Carboxyhemoglob in, Arterial 0.5 % [facility] Comment: Nonsmokers: 0.5-1.5% COHB Smokers: Variable, but usually less than 10% Toxic: 20-30% COHB Lethal: Greater than 60% COHB Methemoglobin, Arterial 0.1 <=1.5 % [facility] Na Whole Blood 140 135 - 145 mmol/L [facility] K Whole Blood 3.3(L) 3.5 - 5.0 mmol/L [facility] Comment: Please note: Patients with WBC >100,000 may have falsely elevated Potassium levels. Contact the Clinical Chemistry Laboratory if there are any questions. ICa Whole Blood 1.14(L) 1.15 - 1.33 mmol/L [facility] Comment: Note: ??Total bilirubin higher than 20 mg/dL may lead to falsely low ionized calcium. CL Whole Blood 108(H) 98 - 107 mmol/L [facility] Gluc Whole Bld 133 65 - 199 mg/dL [facility] Comment:Diabetes: >=200 mg/d L plus symptoms. Lactate WB 1.3 0.5 - 2.2 mmol/L [facility] FIO2 Art 56 % [facility] PF Ratio Art 482 [facility] Blood specimen (specimen) 08/21/2018 2:45 PM EDT 08/21/2018 2:45 PM EDT Romi Velazquez MD POINT OF CARE TEST O RDERABLES Performing Organization Address City/State/[facility] Co de Phone Number [facility] [place] [address] documented in this encounter Visit Diagnoses Diagnosis Atrophic kidney Renal sclerosis, unspecified documented in this encounter Admitting Diagnoses Diagnosis Atrophic kidney Renal sclerosis, unspecified documented in this encounter Administered Medications Inactive Administered Medications - up to 3 most recent administrations Medication Order MAR Action Action Date Dose Rate Site acetaminophen (TYLENOL) tablet 1,000 mg 1,000 mg, Oral, ONCE, 1 dose, On Fri08/21/18 at 1100, Administer with SIP of H2O only., Day of Surgery (Day of Procedure), Routine Given 08/21/2018 11:00 AM EDT 1,000 mg acetaminophen (TYLENOL) tablet 1,000 mg 1,000 mg, Oral, EVERY 6 HOURS SCHEDULED, First dose on Fri08/21/18 at 2030, Until Discontinued, Do not exceed 4,000 mg in 24 hours, Routine Given 08/22/2018 11:57 AM EDT 1,000 mg Given 08/22/2018 5:56 AM EDT 1,000 mg Given 08/21/2018 11:51 PM EDT 1,000 mg ceFAZolin (ANCEF) 1g in dextrose 5% 50mL 1 g, Intravenous, EVERY 8 HOURS, 2 doses, First dose on Fri08/22/18 at 0100, Last dose on Fri08/22/18 at 0900, Administer over 30 Minutes, Indication for (Active or Suspected): Prophylaxis New Bag 08/22/2018 9:49 AM EDT 1 g 100 mL/hr New Bag 08/22/2018 1:28 AM EDT 1 g 100 mL/hr cephALEXin (KEFLEX) capsule 250 mg 250 mg, Oral, EVERY 6 HOURS SCHEDULED, First dose (after last modification) on Fri08/22/18 at 1800, Until Discontinued, Routine, Indication for (Active or Suspected): Prophylaxis docusate sodium (COLACE) capsule 100 mg 100 mg, Oral, 2 TIMES DAILY, First dose on Fri08/21/18 at 2200, Until Discontinued, Routine Given 08/22/2018 9:44 AM EDT 100 mg Given 08/21/2018 9:44 PM EDT 100 mg fentaNYL (PF) 50mcg/mL injection 12.5-25 mcg, Intravenous, EVERY 5 MIN PRN, [...] Recovery, Routine Given 08/21/2018 8:45 PM EDT 25 mcg gentamicin 80 mg in sodium chloride 0.9% 100mL 80 mg, Intravenous, EVERY 8 HOURS, 1 dose, First dose on Fri08/21/18 at 2030, Administer over 60 Minutes, This medication may have an associated drug lab level. Please check for lab orders. Warning Vesicant/Irritant Medication , Indication for (Active or Suspected): Prophylaxis New Bag 08/21/2018 10:05 PM EDT 80 mg 100 mL/hr HYDROmorphone (DILAUDID) injection 0.2-0.4 mg 0.2-0.4 mg, Intravenous, EVERY 5 MIN [...] breakthrough pain., PACU Recovery, Routine Given 08/21/2018 8:50 PM EDT 0.4 mg Given 08/21/2018 8:45 PM EDT 0.4 mg lactated ringers infusion 1,000 mL, at 100 mL/hr, Intravenous, CONTINUOUS, Starting on Fri08/21/18 at 1100, Until Fri08/21/18 at 2330, Day of Surgery (Day of Procedure) New Bag 08/21/2018 9:59 PM EDT 1,000 mLs 100 mL/hr New Bag 08/21/2018 11:00 AM EDT 1,000 mLs 100 mL/hr lactated ringers infusion 100 mL/hr, Intravenous, CONTINUOUS, Starting on 08/22/18 at 0200, Until 08/22/18 at 1839 New Bag 08/22/2018 9:43 AM EDT 100 mL/hr 100 mL/hr Rate/Dose Verify 08/22/2018 5:00 AM EDT 100 mL/hr 100 mL/ hr New Bag 08/21/2018 11:30 PM EDT 100 mL/hr 100 mL/hr lidocaine (XYLOCAINE) 10 mg/mL (1 %) injection 3 mg 3 mg (0.3 mL), Subcutaneous, ONCE PRN, 1 dose, Starting on Fri08/21/18 at 1031, Until Fri08/21/18 at 1115, for discomfort with PIV insertion, Day of Surgery (Day of Procedure), Routine Given 08/21/2018 11:15 AM EDT 3 mg ondansetron (ZOFRAN) tablet 4 mg 4 mg, Oral, ONCE, 1 dose, On 08/22/18 at 1615, Routine Given 08/22/2018 4:08 PM EDT 4 mg oxyCODONE (ROXICODONE) immediate release tablet 10-15 mg 10-15 mg, Oral, EVERY 4 HOURS PRN, Starting on Fri08/21/18 at 2002, Until 08/22/18 at 1839, Pain, severe pain (7-10), Initial dose 10mg. If pain control not adequate in 60 minutes, give additional 5mg, Routine oxyCODONE (ROXICODONE) immediate release tablet 5-10 mg 5-10 mg, Oral, EVERY 4 HOURS PRN, Starting on Fri08/21/18 at 2002, Until 08/22/18 at 1839, Pain, moderate pain (4-6), Initial dose 5mg. If pain control not adequate in 60 minutes, give additional 5mg, Routine Given 08/22/2018 4:08 PM EDT 5 mg sodium chloride 0.9 % (flush) flush 5 mL 5 mL, Intravenous, 2 TIMES DAILY, First dose on Fri08/21/18 at 2100, Until Discontinued, Recovery (Recovery-Hospital Unit), Routine Given 08/22/2018 9:50 AM EDT 5 mLs Given 08/21/2018 8:57 PM EDT 5 mLs documented in this encounter Active and Recently Administered Medications Times are shown in EDT. Scheduled Medication Order 08/20/2018 08/21/2018 08/22/2018 acetaminophen (TYLENOL) tablet 1,000 mg (COMPLETED) 1,000 mg, Oral, ONCE, 1 dose, On Fri08/21/18 at 1100, Administer with SIP of H2O only., Day of Surgery (Day of Procedure), Routine 1100 (Given - Provider: Trent See RN) acetaminophen (TYLENOL) tablet 1,000 mg 1,000 mg, Oral, EVERY 6 HOURS SCHEDULED, First dose on Fri08/21/18 at 2030, Until Discontinued, Do not exceed 4,000 mg in 24 hours, Routine 2030 (Not Given - Provider: Rosi Ceja RN - Reason: See comment - Comment: patient refused at this time)1877 (Given - Provider: Monserrat Greene RN) 0556 (Given - Provider: Alicia Muller RN)1157 (Given - Provider: Rachel Dutton, RN) ceFAZolin (ANCEF) 1g in dextrose 5% 50mL (COMPLETED) 1 g, Intravenous, EVERY 8 HOURS, 2 doses, First dose on Fri08/22/18 at 0100, Last dose on Fri08/22/18 at 0900, Administer over 30 Minutes, Indication for (Active or Suspected): Prophylaxis 0128 (New Bag - Provider: Monserrat Greene RN)0158 (Stopped - Provider: Monserrat Greene RN)0949 (New Bag - Provider: Rachel Dutton, RN)1019 (Stopped - Provider: Rachel Dutton, RN) cephALEXin (KEFLEX) capsule 250 mg 250 mg, Oral, EVERY 6 HOURS SCHEDULED, First dose (after last modification) on Fri08/22/18 at 1800, Until Discontinued, Routine, Indication for (Active or Suspected): Prophylaxis docusate sodium (COLACE) capsule 100 mg 100 mg, Oral, 2 TIMES DAILY, First dose on Fri08/21/18 at 2200, Until Discontinued, Routine 214 (Given - Provider: Rosi Ceja RN) 0944 (Given - Provider: Rachel Dutton, CLEMENT) gentamicin 80 mg in sodium chloride 0.9% 100mL (COMPLETED) 80 mg, Intravenous, EVERY 8 HOURS, 1 dose, First dose on Fri08/21/18 at 2030, Administer over 60 Minutes, This medication may have an associated drug lab level. Please check for lab orders. Warning Vesicant/Irritant Medication , Indication for (Active or Suspected): Prophylaxis 220 (New Bag - Provider: Rosi Ceja RN)2305 (Stopped - Provider: Monserrat Greene RN) ondansetron (ZOFRAN) tablet 4 mg (COMPLETED) 4 mg, Oral, ONCE, 1 dose, On Fri08/22/18 at 1615, Routine 1608 (Given - Provid er: Rachel Dutton RN) sodium chloride 0.9 % (flush) flush 5 mL 5 mL, Intravenous, 2 TIMES DAILY, First dose on Fri08/21/18 at 2100, Until Discontinued, Recovery (Recovery-Hospital Unit), Routine 2056 (Given - Provider: Rosi Ceja RN) 0950 (Given - Provider: Rachel Dutton, RN) Continuous Medication Order 08/20/2018 08/21/2018 08/22/2018 lactated ringers infusion (CANCELED) 1,000 mL, at 100 mL/hr, Intravenous, CONTINUOUS, Starting on Fri08/21/18 at 1100, Until Fri08/21/18 at 2330, Day of Surgery (Day of Procedure) 1100 (New Bag - Provider: Trent See, RN)2159 (New Bag - Provider: Rosi Ceja, CLEMENT) lactated ringers infusion 100 mL/hr, Intravenous, CONTINUOUS, Starting on 08/22/18 at 0200, Until 08/22/18 at 1839 2330 (New Bag - Provider: Monserrat Greene RN) 0500 (Rate/Dose Verify - Provider: Alicia Muller, CLEMENT)0943 (New Bag - Provider: Rachel Dutton, RN) PRN Medication Order 08/20/2018 08/21/2018 08/22/2018 fentaNYL (PF) 50mcg/mL injection (CANCELED) 12.5-25 mcg, Intravenous, EVERY 5 MIN PRN, [...] fentanyl for breakthrough pain., PACU Recovery, Routine 2044 (Given - Provider: Rosi Ceja, CLEMENT) HYDROmorphone (DILAUDID) injection 0.2-0.4 mg (CANCELED) 0.2-0.4 mg, Intravenous, EVERY 5 MIN PRN, [...] fentanyl for breakthrough pain., PACU Recovery, Routine 2044 (Given - Provider: Rosi Ceja RN)2049 (Given - Provider: Rosi Ceja RN) lidocaine (XYLOCAINE) 10 mg/mL (1 %) injection 3 mg (COMPLETED) 3 mg (0.3 mL), Subcutaneous, ONCE PRN, 1 dose, Starting on Fri08/21/18 at 1031, Until Fri08/21/18 at 1115, for discomfort with PIV insertion, Day of Surgery (Day of Procedure), Routine 1114 (Given - Provider: Trent See RN) lidocaine (XYLOCAINE) 10 mg/mL (1 %) injection 3 mg 3 mg (0.3 mL), Subcutaneous, ONCE PRN, 1 dose, Starting on Fri08/21/18 at 2003, Until 08/22/18 at 1839, for discomfort with PIV insertion, Recovery (Recovery-Hospital Unit), Routine oxyCODONE (ROXICODONE) immediate release tablet 10-15 mg(Linked Group 1) 10-15 mg, Oral, EVERY 4 HOURS PRN, Starting on Fri08/21/18 at 2002, Until 08/22/18 at 1839, Pain, severe pain (7-10), Initial dose 10mg. If pain control not adequate in 60 minutes, give additional 5mg, Routine 1608 (See Alternativ e - Provider: Rachel Dutton RN) oxyCODONE (ROXICODONE) immediate release tablet 5-10 mg(Linked Group 1) 5-10 mg, Oral, EVERY 4 HOURS PRN, Starting on Fri08/21/18 at 2002, Until 08/22/18 at 1839, Pain, moderate pain (4-6), Initial dose 5mg. If pain control not adequate in 60 minutes, give additional 5mg, Routine 1608 (Given - Provid er: Rachel Dutton RN) polyethylene glycol (MIRALAX) packet 17 g 17 g, Oral, DAILY PRN, Starting on Fri08/21/18 at 2003, Until 08/22/18 at 1839, Constipation, Administer if no bowel movement within 48 hours to achieve: (1) One bowel movement at least every 48 hours, AND (2) without straining. If multiple PRN bowel medications ordered, start with polyethylene glycol, then lactulose, then oral bisacodyl, then bisacodyl suppository, then magnesium citrate, then tap water enema. Multiple medications may be given concomitantly for constipation., Routine sodium chloride 0.9 % (flush) flush 5-20 mL 5-20 mL, Intravenous, EVERY 1 MIN PRN, Starting on Fri08/21/18 at 2003, Until 08/22/18 at 183, flush, Flush pertains to all indwelling lines. Flush per protocol found in the job aid using the link provided on this medication record., Recovery (Recovery-Hospital Unit), Routine Linked Groups Order Group 1: oxyCODONE (ROXICODONE) immediate release tablet 5-10 mgJump to med 5-10 mg, Oral, EVERY 4 HOURS PRN, Starting on Fri08/21/18 at 2002, Until 08/22/18 at 1839, Pain, moderate pain (4-6), Initial dose 5mg. If pain control not adequate in 60 minutes, give additional 5mg, Routine Or oxyCODONE (ROXICODONE) immediate release tablet 10-15 mgJump to med 10-15 mg, Oral, EVERY 4 HOURS PRN, Starting on Fri08/21/18 at 2002, Until 08/22/18 at 1839, Pain, severe pain (7-10), Initial dose 10mg. If pain control not adequate in 60 minutes, give additional 5mg, Routine documented in this encounter [employer] Relationship Specialty Start Date End Date Richie Mendez DO [address] [place] [address] PCP - General Family Medicine 03/27/18 documented as of this encounter
--- OUTSIDE RECORDS SUMMARY | 2023-09-23 16:05 | XMS_ITS | Encounter Summary ---
Author Organization [facility] [place] [address] Care Team Providers Care Consumer Experience Consultant Name Role Phone Richie Mendez DO Primary Care Provider [phone] Reason for Visit * Auth/Cert Specialty Diagnoses / Procedures Referred By Paul pascal Referred To Contact Diagnoses Atrophic kidney LEFT ATROPHIC KIDNEY/ PAIN Procedures PRO LAP, RADICAL NEPHRECTOMY @LAPAROSCOPY, RADICAL NEPHRECTOMY (WRVU 25.06) Referral ID Status Reason Start Date Expiration Date Visits Re quested Visits Authorized [id number] 1 1 Encounter Details Date Type Department Care Team (Late st Contact Info) Description 08/21/2018 1:10 PM EDT Anesthesia Event [place] [address] Mike Bangura MD [facility] [place] [address] Abraham Cooper MD [facility] [place] [address] Anesthesia Record Procedure Summary Procedure Name Responsible Anesthesiologist Anesthesia Start Time Anesthesia Stop Time @LAPAROSCOPY, RADICAL NEPHRECTOMY (WRVU 25.06) (Left: Flank) Mike Bangura MD 08/21/18 1310 08/21/188 Events Date Time Event Comment 08/21/2018 1112 1310 AN Verify 1310 Start 1310 An Start Data 1320 An Induction 1323 An Intubation 1355 Anesthesia Ready 1441 Procedure Start 1458 Quick Note TOF / 1603 Handoff Intra-procedure anesthesia care was transferred after review of the patient's history, current anesthetic/surgical status and plan, according to the [facility] Provider Handoff Checklist. 1654 Break/Relief In Manoj castro Jr, CRNA 1934 Extubation/LMA Out 1934 an stop data 1957 Recovery or ICU Handoff Katy ent care was transferred to the destination unit staff after review of the patient's medical history, current anesthetic/surgical status and plan, according to the Provider Handoff Checklist. 1957 Stop Meds Name Total Midazolam 2 mg fentaNYL 200 mcg Propofol 150 mg Rocuronium 80 mg PHENYLephrine 200 mcg ePHEDrine 40 mg Ondansetron 4 mg ceFAZolin 4 g Heparin 5000 units SQ 5,000 Units BUpivacaine 0.5% 30 mL Propofol INF 692.17 mg HYDROmorphone 1.4 mg Esmolol 15 mg Lactated Ringers 1,700 mL Sodium Chloride 0.9% 1,100 mL * Agents Name O2 Air N2O Sevoflurane (et) * Blood No blood administrations on file. Lines, Drains, and Airways Type Details Placement Removal Urethral Catheter 08/21/18; 1314; Urol ogic surgery; Physician order; indwelling double lumen catheter; latex, silicone coated; 14; inserted at this facility; 1; 10; 10; none; drainage bag to dependent drainage; inserted by Caro Herrera RN; 08/22/18; 1143 08/21/18 1314 by Kaitlyn Austin RN 08/22/18 1143 by Rebecca Mays LNA ETT Mask Ventilation: Ea sy (1); ETT Type: Cuffed, Oral; ETT Size: 7 mm; Mac Blade: 3; Attempts: 2; Laryngoscopy Grade: 2; ETT Placement Verified By: Auscultation, Capnometry, Visual; Removal Date: 08/21/18; Removal Time: 193408/21/18 1328 by Abraham Cooper MD 08/21/18 193 by Bernardo Araujo CRNA (RETIRED) Peripheral IV Line - Single Lumen 08/21/18; 1403; metacarpal vein (top of hand), left; 08/22/18; 1544 08/21/18 1403 by Abraham Cooper MD 08/22/18 1544 by Rebecca Mays LNA Incision 08/21/18; 1443; abdo men; laparoscopic puncture, vertical; multiple trocar sites to abdomen along with hand port to Left Lower Abdomen ; 10/15/21 (LDA cleanup utility RA#[id number]); 1715 (LDA cleanup utility RA#[id number]) 08/21/18 1443 by Kaitlyn Austin RN 10/15/21 1715 by Anika Kiser documented in this encounter Social History Tobacco [...] documented as of this encounter OR Notes * Anesthesia Postprocedure Evaluation - Mike Bangura MD - 08/21/2018 8:44 PM EDT Department of Anesthesiology Post-procedure Note Patient: Paz Phillips Procedure Summary Date: 08/21/18 Room / Location: [facility] OR [facility] MAIN OR Anesthesia Start: 1309 Anesthesia Stop: 1957 Procedure: @LAPAROSCOPY, RADICAL NEPHRECTOMY (WRVU 25.06) (Left Flank) Diagnosis: (LEFT ATROPHIC KIDNEY/ PAIN) Surgeon: Romi Velazquez MD Responsible Provider: Mike Bangura MD Anesthesia Type: general ASA Status: 3 All Anesthesia Providers: Anesthesiologist: Mike Bangura MD; Norm Frances MD CANDLE WRAPPER: Bernardo Araujo CRNA Route Cdl Driver: Abraham Cooper MD Vitals Value Taken Time BP 126/67 08/21/2018 8:30 PM Temp Pulse 103 08/21/2018 8:43 PM Resp 12 08/21/2018 8:43 PM SpO2 97 % 08/21/2018 8:43 PM Pain Level Vitals shown include unvalidated device data. Patient [facility] Level of Consciousness: Awake and Alert Pain Management: Satisfactory Analgesia PONV: None Cardiovascular Status: At Baseline Respiratory Status: At Baseline Postoperative Fluid Status: Intravascular EUvolemia Possible Anesthetic Complications: NONE apparent at time of evaluation Final Primary Anesthesia Type: General (The anesthetic type performed was the same as planned.) Comments: * Anesthesia Procedure Notes - Beth Michael MD [...] and mask, cap, sterile gloves, hand hygeine [id number] 21 10 cm Ultrasound Guided: YES and [...] imaging. Single-Shot: Single-shot BUpivacaine 0.5%, 30 mL Resident/CANDLE WRAPPER:: Beth Michael MD Fellow:: Yousif Jose MD Attending Physician:: Carola Lam MD * Anesthesia Preprocedure Evaluation - Norm Frances MD [...] waking up from knee surgery, done in [facility] No past surgical history on file. [...] Likely second IV in case of need fortransfusion (T&S on file - good until 08/24/18). Regional block for post-op pain control. Anesthesia concerns include risk of blood loss (maximum allowable [...] apnea if present. The potential for addiction wasdiscussed and the need to stop use as soon as possible. It was recommended that she promptly destroy unused medication or take them back to drop box locations. She is aware that our care model is based on a team and I will be working with either a CANDLE WRAPPER or resident physician. A resident physician means a physician who is in training to be an anesthesiologist. The patient acknowledged these risks and would like to proceed with the anesthesia plan. Informed Consent: Anesthetic plan and risks discussed with patient. Plan discussed with resident. PAT Clinic Note documented in this encounter Miscellaneous Notes * Addendum Note - Bernardo Araujo CRNA - 08/24/2018 4:18 PM EDT Addendum created 08/24/18 1618 by Bernardo Araujo CRNA Intraprocedure Meds edited * Addendum Note - Beth Michael MD - 08/24/2018 9:53 AM EDT Addendum created 08/24/18 0953 by Beth Michael MD Sign clinical note documented in this encounter Plan of Treatment Not on file documented as of this encounter Procedures Procedure Name Priority Date/Time Associated Diagnosis Comments ANESTHESIA BLOCK Routine 08/21/2018 2:53 PM EDT documented in this encounter Results * Anesthesia Block (08/21/2018 2:53 PM EDT) Narrative [...] and benefits of the procedure were reviewed. ?? Indication: ??Post-op Pain Control Post-op pain management at the request of surgeon. ?? Block Type: ??TAP Laterality: ??Left Position: ??Right lateral decubitus Prep: ??Chlorhexidine, patient draped and mask, cap, sterile gloves, hand hygeine [id number] 21 10 cm Ultrasound Guided: ??YES and in-plane. ??Ultrasound Image(s) were saved. Ultrasound guidance was used to identify the targeted neuronal structure. Ultrasound was also used to identify needle position and to identify tissue (bone, muscle, and blood vessels) to prevent inadvertent intraneural or intravascular needle placement and injection. The spread of local anesthetic was confirmed with live ultrasound imaging. ?? Single-Shot: ??Single-shot BUpivacaine 0.5%, 30 mL Resident/CANDLE WRAPPER:: ??Beth Michael MD Fellow:: ??Yousif Jose MD Attending Physician:: ??Carola Lam MD Carola Lam MD STEAM CLEAN MACHINE OPERATOR [facility] documented in this encounter Visit Diagnoses Not on filedocumented in this encounter Administered Medications Inactive Administered Medications - up to 3 most recent administrations Medication Order MAR Action Action Date Dose Rate Site BUpivacaine (PF) (MARCAINE) 0.5 % (5 mg/mL) injection Starting on Fri08/21/18 at 1433, Until Fri08/21/18 at 1433, Anesthesia Intra-op, Routine Given 08/21/2018 2:33 PM EDT 30 mLs ceFAZolin (ANCEF) 1g in dextrose 5% 50mL PRN, Starting on Fri08/21/18 at 1355, Until Fri08/21/18 at 2019, Administer over 30 Minutes, Anesthesia Intra-op Given 08/21/2018 4:55 PM EDT 2 g Given 08/21/2018 1:55 PM EDT 2 g ePHEDrine 5 mg/mL multi-dose injection PRN, Starting on Fri08/21/18 at 1330, Until Fri08/21/18 at 2019, Anesthesia Intra-op, Routine Given 08/21/2018 1:40 PM EDT 10 mg Given 08/21/2018 1:35 PM EDT 20 mg Given 08/21/2018 1:30 PM EDT 10 mg esmolol (BREVIBLOC) injection PRN, Starting on Fri08/21/18 at 1534, Until Fri08/21/18 at 2019, Anesthesia Intra-op, Routine Given 08/21/2018 3:34 PM EDT 5 mg Given 08/21/2018 1:45 PM EDT 10 mg fentaNYL 50 mcg/mL multi-dose injection PRN, Starting on Fri08/21/18 at 1320, Until Fri08/21/18 at 2019, Anesthesia Intra-op, Routine Given 08/21/2018 3:09 PM EDT 50 mcg Given 08/21/2018 2:48 PM EDT 50 mcg Given 08/21/2018 1:20 PM EDT 100 mcg heparin (porcine) multi-dose injection PRN, Starting on Fri08/21/18 at 1329, Until Fri08/21/18 at 2019, Anesthesia Intra-op, Routine Given 08/21/2018 1:29 PM EDT 5,000 Units HYDROmorphone (DILAUDID) injection PRN, Starting on Fri08/21/18 at 1526, Until Fri08/21/18 at 2019, Anesthesia Intra-op, Routine Given 08/21/2018 6:48 PM EDT 0.4 mg Given 08/21/2018 6:23 PM EDT 0.4 mg Given 08/21/2018 6:01 PM EDT 0.4 mg lactated ringers infusion CONTINUOUS PRN, Starting on Fri08/21/18 at 1310, Until Fri08/21/18 at 2019, Anesthesia Intra-op New Bag 08/21/2018 3:17 PM ED T New Bag 08/21/2018 1:10 PM EDT midazolam (PF) (VERSED) multi-dose injection PRN, Starting on Fri08/21/18 at 1310, Until Fri08/21/18 at 2019, Anesthesia Intra-op, Routine Given 08/21/2018 1:10 PM EDT 2 mg ondansetron (ZOFRAN) injection PRN, Starting on Fri08/21/18 at 1811, Until Fri08/21/18 at 2019, Anesthesia Intra-op, Routine Given 08/21/2018 6:11 PM EDT 4 mg PHENYLephrine in NS (PF) (RAJ-SYNEPHRINE) 0.8 mg/10 mL (80 mcg/mL) multi-dose injection Syrg PRN, Starting on Fri08/21/18 at 1330, Until Fri08/21/18 at 2019, Anesthesia Intra-op, Routine Given 08/21/2018 6:39 PM EDT 80 mcg Given 08/21/2018 1:35 PM EDT 80 mcg Given 08/21/2018 1:30 PM EDT 40 mcg propofol (DIPRIVAN) 10 mg/mL bolus injection (Anesthesia) PRN, Starting on Fri08/21/18 at 1355, Until Fri08/21/18 at 2019, Anesthesia Intra-op Given 08/21/2018 1:20 PM EDT 150 mg propofol (DIPRIVAN) infusion CONTINUOUS PRN, Starting on Fri08/21/18 at 1330, Until Fri08/21/18 at 2019, Anesthesia Intra-op, Routine Rate/Dose Change 08/21/2018 6:47 PM EDT 50 mcg/kg/min 18.4 mL/hr New Bag 08/21/2018 1:30 PM EDT 30 mcg/kg/min 11 mL/hr rocuronium (ZEMURON) multi-dose injection PRN, Starting on Fri08/21/18 at 1320, Until Fri08/21/18 at 2019, Anesthesia Intra-op, Routine Given 08/21/2018 4:18 PM EDT 20 mg Given 08/21/2018 2:56 PM EDT 10 mg Given 08/21/2018 1:20 PM EDT 50 mg sodium chloride 0.9% infusion CONTINUOUS PRN, Starting on Fri08/21/18 at 1315, Until Fri08/21/18 at 2019, Anesthesia Intra-op New Bag 08/21/2018 1:15 PM ED T documented in this encounter Care Teams Consumer Experience Consultant Relationship Specialty Start Date End Date Richie Mendez DO [address] [place] [address] PCP - General Family Medicine 03/27/18 documented as of this encounter
--- OUTSIDE RECORDS SUMMARY | 2023-09-23 16:05 | XMS_ITS | Encounter Summary ---
[facility] Organization [facility] Address [facility] [place] [address] Care Team Providers Care Structural Steel Trades Worker Name Role Phone Richie Mendez DO Primary Care Provider [phone] Encounter Details Date Type Department Care Team (Late st Contact Info) Description 07/11/2018 [place] [id number] Jaylen Randolph MD [facility] [place] [address] Social History Tobacco Use Types Packs/Day Years Used Date Smoking Tobacco: Never Sex and Gender Information Value Date Recorded Sex Assigned at Not on file Gender Identity Not on file Sexual Orientation Not on file documented as of this encounter Miscellaneous Notes * Telephone Encounter - Jaylen Randolph MD - 07/11/2018 11:21 PM EDT I received a call from the [facility] ED regarding Ms. 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 Moralez / Marcus (on observation as shewas previously asymptomatic at least in 03/2018 at her last visit with Dr. Velazquez. She is there withleft renal colic. Renal function at baseline. No s/s of infection. I reviewed the two CT scans (02/2018 and today) as well as Dr. Velazquez notes. Essentially unchanged severe left hydro, atrophic kidney, multiple left parapelvic cysts without hydro. I recommended pain control, If they can not get her comfortable or if she has any fevers or other signs of infection then to let me know and we can get h er a PCN. I reiterated that in my review of her records, she would benefit from a nephrectomy. documented in this encounter Plan of Treatment Not on file documented as of this encounter Visit Diagnoses Not on filedocumented in this encounter Care Teams Structural Steel Trades Worker Relationship Specialty Start Date End Date Richie Mendez DO [address] [place] [address] PCP - General Family Medicine 03/27/18 documented as of this encounter
--- OUTSIDE RECORDS SUMMARY | 2023-09-23 16:05 | XMS_ITS | Encounter Summary ---
Author Organization [facility] Address [facility] [place] [address] Care Team Providers Care Legal Assistant Name Role Phone Richie Mendez DO Primary Care Provider [phone] Reason for Visit * Auth/Cert Specialty Diagnoses / Procedures Referred By Paul pascal Referred To Contact Diagnoses Atrophic kidney LEFT ATROPHIC KIDNEY/ PAIN Procedures PRO LAP, RADICAL NEPHRECTOMY @LAPAROSCOPY, RADICAL NEPHRECTOMY (WRVU 25.06) Referral ID Status Reason Start Date Expiration Date Visits Re quested Visits Authorized [id number] 1 1 Encounter Details Date Type Department Care Team (Late st Contact Info) Description 08/21/2018 11:56 AM EDT - 08/21/2018 5:24 PM EDT Surgery [place] [phone] Romi Velazquez MD [facility] [place] [address] @LAPAROSCOPY, RADICAL NEPHRECTOMY (WRVU 25.06) Social History Tobacco Use Types Packs/Day Years [...] 36.4 ??C (97.5 ??F) 08/21/2018 10:40 AM E DT Respiratory Rate 14 08/21/2018 10:40 AM EDT [...] Paz Phillips Patient Age: 77 y.o. Language: Belizean Race: White Ethnicity: Not nor Admit date: [...] Hospital Course: Patient was admitted electively to [facility] via the same day surgery program and [...] as prophylaxis. Prescriptions have been sent to [facility] in [facility] Vital Signs at Discharge: Weight: Wt Readings from Last 1 Encounters: 08/22/ 61.2 kg (135 lb) Height: Ht Readings from Last 1 Encounters: 08/22/ 152.4 cm (5') BMI: Body mass index [...] 5 PM and weekends, and ask for brand communications manager Urologist. Special Considerations for Solitary Kidneys: Do [...] appointments. Primary Care Provider: Richie Mendez DO [phone] Follow-up Recommendations for Providers: * Call your [...] was managed by the Urology Team at [facility]. If you have any questions or concerns, please feel free to contact us. Provider Contact Information: Urology Clinic: [facility] (after business hours): Discharge References/Attachments None Associated attestation - Je Persaud III, MD - 08/23/2018 7:40 AM EDT I have seen the patient and reviewed the resident's above history and I agree with the details as written. The assessment and plan were formulated in discussion with me and I agree with them as documented. Je Persaud III, MD director of services and Pediatrics [facility] [employer] Senior Staff Pediatric Urologist [facility] documented in this encounter Discharge Instructions * [...] questions is before 5 PM weekdays and [phone] after 5 PM and weekends, and ask for brand communications manager Urologist. Special Considerations for Solitary Kidneys: Do [...] pt's home pharmacy. PIV removed. Patient left [facility] in a wheelchair accompanied by 2 [place] staff. * Beth Fernández MD - 08/22/2018 [...] [place] and pt readied for transfer to [facility] via bed. * Rosi Ceja RN - [...] for visitation. 2210- Report to Jennifer Owens CALENDER ROLL OPERATOR. documented in this encounter H&P Notes * [...] ?? 2002: She recalls undergoing SWL in [place] which failed to fully fragment the stone; she then underwent ureteroscopy (reportedly complex/difficult) as well as repeat SWL; she is unsure if she evercleared all of the stone fragments. By report, a KUB was obtained in 2006 which did not show definote stone. ?? 2009: She was seen in [place] with 3-4 months of moderate LLQ pain radiating towards her psilteral labia as well as suspected bladder spasms and was found to have obstruction of the left ureter on CT imaging. She underwent attempt at URS by Dr. Black at [facility]. She was found to have left [...] nephrectomy. ? 03/27/18: seen by me at [facility]. At that time she reports her LLQ [...] URS SWL Tubal ligation ?? 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 No history tobacco Denies regular alcohol [...] Operative Note Patient Name: Paz Phillips : [id number] MR#: [id number] Case Date: 08/21/2018 Surgeon: Surgeon(s) and Role: [...] the kidney and ureter, a fourth 5mm electrical assistant port was place 1cm lateral and [...] Control Outcome: Ongoing (Interventions Implemented as Appropriate) 08/22/1824708/22/18 0300 Safety Interventions Isolation Precautions standard precautions maintained -- Infection Prevention rest/sleep promoted;environmental surveillance performed;single patient room provided -- Coping Strategies Supportive Measures -- decision-making supported;goal setting facilitated;relaxation techniques promoted;self-care encouraged * Brief Op Note - Tracie Angela MD - 08/21/2018 7:07 PM EDT Brief Operative Note Patient Name: Paz Phillips : [id number] MR#: [id number] Case Date: 08/21/2018 Surgeon: Surgeon(s) and Role: [...] 1:24 AM EDT) Neutrophil % 94.9 % [facility] Neutrophil Absolute 13.32(H) 1.70 - 6.10 x10(3)/mc L [facility] Lymph % 1.7 % [facility] Lymphocytes Abs 0.2(L) 0.9 - 3.2 x10(3)/mc L [facility] Monocyte % 3.1 % [facility] Monocyte Abs 0.4 0.3 - 0.9 x10(3)/ L [facility] Eos % 0.0 % [facility] Eosinophils Abs 0.0 0.0 - 0.4 x10(3)/[facility] Basophil % 0.1 % [facility] Baso Absolute 0.0 0.0 - 0.1 x10(3)/ L [facility] Immature Gran % 0.20 % [facility] Comment: Immature granulocytes(IG's)percentage and absolute count will include metamyelocytes, myelocytes, and promyelocytes. Blood smears from CBCs yielding IG's will be scanned manually for concordance. If this scan disagrees with the automated IG or if promyelocytes are noted, a manual differential will be performed. Immature Gran Absolute 0.03 0.00 - 0.04 x10(3)/mc L [facility] Blood specimen (specimen) 08/22/2018 1:24 AM EDT 08/22/2018 1:33 AM EDT Narrative Resulting Agency Comment Spec In Lab Tracie Angela MD HEMATOLOGY ORDERABLE S [facility] [place] [address] * (ABNORMAL) Hemogram (08/22/2018 1:24 AM EDT) White Blood Cell 14.0(H) 4.0 - 9.5 x10(3)/[facility] Red Blood Cell 4.55 4.00 - 5.21 x10(6)/mc L [facility] Hemoglobin 13.3 11.7 - 15.5 gm/dL [facility] Hematocrit 41.9 35.7 - 45.8 % [facility] Mean Cell Volume 92.1 82.6 - 94.4 fL [facility] Mean Cell Hemoglobin 29.2 27.1 - 32.0 pg [facility] Mean Cell Hemoglobin Concentration 31.7 31.7 - 35.0 gm/dL [facility] Platelet 164 145 - 357 x10(3)/[facility] RDW Standard Deviation 48.4(H) 37.0 - 46.0 [facility] RDW coefficient of variation 14.3(H) 11.5 - 14.1 % [facility] Mean Platelet Volume 11.2 7.6 - 12.9 [facility] NRBC% auto 0.0 % [facility] NRBC Absolute 0.000 0.000 - 0.000 x10(3)/[facility] Blood specimen (specimen) 08/22/2018 1:24 AM EDT 08/22/2018 1:33 AM EDT Narrative Resulting Agency Comment Spec In Lab Tracie Angela MD HEMATOLOGY ORDERABLE S [facility] [place] [address] * (ABNORMAL) Creatinine (08/22/2018 1:24 AM EDT) Pathologist [facility] Creatinine 0.97 0.70 - 1.20 mg/dL [facility] Est Glomerular Filtration Rate 57(L) >=60 mL/min/1.7 3 m?? [facility] Comment: The eGFR was calculated using the CKD-EPI equation. As with all creatinine based estimates of kidney function, eGFR values calculated with the CKD-EPI equation are not accurate in patients with acute kidney failure, extremes of body mass or the acutely ill. http://[employer]/[facility] eGFR 66 >=60 mL/min/1.7 3 m?? [facility] Comment: The eGFR was calculated using the CKD-EPI equation. As with all creatinine based estimates of kidney function, eGFR values calculated with the CKD-EPI equation are not accurate in patients with acute kidney failure, extremes of body mass or the acutely ill. http://[employer]/[facility] Blood specimen (specimen) 08/22/2018 1:24 AM EDT 08/22/2018 1:33 AM EDT Narrative Resulting Agency Comment Spec In Lab Romi Velazquez MD CHEMISTRY ORDERABLES Performing Organization Address [facility] Co de Phone Number [facility] [place] [address] * BUN (08/22/2018 1:24 AM EDT) Blood Urea Nitrogen 9 8 - 18 mg/dL [facility] Blood specimen (specimen) 08/22/2018 1:24 AM EDT 08/22/2018 1:33 AM EDT Narrative Resulting Agency Comment Spec In Lab Romi Velazquez MD CHEMISTRY ORDERABLES Performing Organization Address [facility] Co de Phone Number [facility] [place] [address] * (ABNORMAL) Electrolytes panel (08/22/2018 1:24 AM EDT) Sodium 140 135 - 145 mmol/L [facility] Potassium 4.4 3.5 - 5.0 mmol/L [facility] Comment: Please note: ??Patients with WBC >100,000 may have falsely elevated Potassium levels. ??For accurate Potassium quantification in these patients send serum separator tube (gold top) for subsequent determinations. ??Contact the Clinical Chemistry Laboratory if there are any questions. Chloride 106 98 - 107 mmol/L [facility] Carbon Dioxide 21(L) 22 - 31 mmol/L [facility] Anion Gap 13 5 - 15 mmol/L [facility] Blood specimen (specimen) 08/22/2018 1:24 AM EDT 08/22/2018 1:33 AM EDT Narrative Resulting Agency Comment Spec In Lab Romi Velazquez MD CHEMISTRY ORDERABLES [facility] [place] [address] * (ABNORMAL) Differential, Automated (08/21/2018 8:06 PM EDT) Neutrophil % 93.8 % [facility] Neutrophil Absolute 13.01(H) 1.70 - 6.10 x10(3)/mc L [facility] Lymph % 2.6 % [facility] Lymphocytes Abs 0.4(L) 0.9 - 3.2 x10(3)/mc L [facility] Monocyte % 3.0 % [facility] Monocyte Abs 0.4 0.3 - 0.9 x10(3)/mc L [facility] Eos % 0.0 % [facility] Eosinophils Abs 0.0 0.0 - 0.4 x10(3)/mc L [facility] Basophil % 0.2 % [facility] Baso Absolute 0.0 0.0 - 0.1 x10(3)/mc L [facility] Immature Gran % 0.40 % [facility] Comment: Immature granulocytes(IG's)percentage and absolute count will include metamyelocytes, myelocytes, and promyelocytes. Blood smears from CBCs yielding IG's will be scanned manually for concordance. If this scan disagrees with the automated IG or if promyelocytes are noted, a manual differential will be performed. Immature Gran Absolute 0.05(H) 0.00 - 0.04 x10(3)/ L [facility] Blood specimen (specimen) 08/21/2018 8:06 PM EDT 08/21/2018 8:15 PM EDT Narrative Resulting Agency Comment Spec In Lab Tracie Angela MD HEMATOLOGY ORDERABLE S [facility] [place] [address] * (ABNORMAL) Hemogram (08/21/2018 8:06 PM EDT) White Blood Cell 13.9(H) 4.0 - 9.5 x10(3)/[facility] Red Blood Cell 4.68 4.00 - 5.21 x10(6)/[facility] Hemoglobin 13.4 11.7 - 15.5 gm/dL [facility] Hematocrit 43.4 35.7 - 45.8 % [facility] Mean Cell Volume 92.7 82.6 - 94.4 fL [facility] Mean Cell Hemoglobin 28.6 27.1 - 32.0 pg [facility] Mean Cell Hemoglobin Concentration 30.9(L) 31.7 - 35.0 gm/dL [facility] Platelet 169 145 - 357 x10(3)/[facility] RDW Standard Deviation 47.7(H) 37.0 - 46.0 [facility] RDW coefficient of variation 14.0 11.5 - 14.1 % [facility] Mean Platelet Volume 11.4 7.6 - 12.9 [facility] NRBC% auto 0.0 % [facility] NRBC Absolute 0.000 0.000 - 0.000 x10(3)/[facility] Blood specimen (specimen) 08/21/2018 8:06 PM EDT 08/21/2018 8:15 PM EDT Narrative Resulting Agency Comment Spec In Lab Tracie Angela MD HEMATOLOGY ORDERABLE S [facility] [place] [address] * (ABNORMAL) Basic Metabolic Panel (non-fasting) (08/21/2018 8:06 PM EDT) Glucose 167 65 - 199 mg/dL [facility] Comment:Diabetes: >=200 mg/d L plus symptoms Blood Urea Nitrogen 9 8 - 18 mg/dL [facility] Creatinine 0.99 0.70 - 1.20 mg/dL [facility] Sodium 143 135 - 145 mmol/L [facility] Potassium 3.9 3.5 - 5.0 mmol/L [facility] Comment: Please note: ??Patients with WBC >100,000 may have falsely elevated Potassium levels. ??For accurate Potassium quantification in these patients send serum separator tube (gold top) for subsequent determinations. ??Contact the Clinical Chemistry Laboratory if there are any questions. Chloride 109(H) 98 - 107 mmol/L [facility] Carbon Dioxide 21(L) 22 - 31 mmol/L [facility] Anion Gap 13 5 - 15 mmol/L [facility] Calcium 8.3(L) 8.5 - 10.5 mg/dL [facility] Est Glomerular Filtration Rate 56(L) >=60 mL/min/1. 73 m?? [facility] Comment: The eGFR was calculated using the CKD-EPI equation. As with all creatinine based estimates of kidney function, eGFR values calculated with the CKD-EPI equation are not accurate in patients with acute kidney failure, extremes of body mass or the acutely ill. http://[employer]/[facility] eGFR 65 >=60 mL/min/1. 73 m?? [facility] Comment: The eGFR was calculated using the CKD-EPI equation. As with all creatinine based estimates of kidney function, eGFR values calculated with the CKD-EPI equation are not accurate in patients with acute kidney failure, extremes of body mass or the acutely ill. http://[employer]/[facility] Blood specimen (specimen) 08/21/2018 8:06 PM EDT 08/21/2018 8:15 PM EDT Narrative Resulting Agency Comment Spec In Lab Romi Velazquez MD CHEMISTRY ORDERABLES Performing Organization Address [facility] de Phone Number [facility] [place] [address] * Specimen to Pathology (08/21/2018 6:05 PM EDT) AP Specimen 08/21/2018 6:05 PM EDT 08/21/2018 6:05 PM EDT Narrative [facility] - 08/21/2018 6:05 PM EDT Specimen requisition ordered. ??Separate Pathology report to follow Romi Velazquez MD PATHOLOGY/CYTOLOGY O RDERABLES Performing Organization Address [facility] de Phone Number [facility] [place] [address] * Surgical Pathology Report (08/21/2018 6:03 PM EDT) Final Diagnosis [id number] ? Location: [facility]; [facility]; The signing pathologist has (i) examined the relevant preparation(s) for the specimen(s) and (ii) rendered or confirmed the diagnosis(es). . ?Surgical Pathology DIAGNOSIS Left kidney (nephrectomy): ?? 1. Hydronephrosis. ?? 2. Renocortical atrophy and chronic pyelonephritis. ?? 3. No evidence of malignancy. CR-0 Electronically signed by: ??Andrade JC, Kev Ferguson Verified: ??08/25/2018 ?Pathologist Performed at: ??-[facility] Dept. of Pathology, [place], [place] CLINICAL INFORMATION Specimen Submitted: A - [...] attenuated displaying a smooth lined cyst wall. Match Up Person sections in 4 cassettes as follows: ?A1: Vascular and ureteral margins ?A2-A4: Cyst wall and possible parenchyma ejr 08/25/2018 2:53 PM EDT [facility] SPECIMEN FROM KIDNEY / Unknown 08/21/2018 6:03 PM EDT 08/21/2018 6:03 PM EDT Romi Velazquez MD PATHOLOGY/CYTOLOGY O MANDA [facility] [place] [address] * (ABNORMAL) BLOOD GAS 2 ARTERIAL (08/21/2018 2:45 PM EDT) pH, Arterial 7.40 7.35 - 7.45 [facility] PCO2, Arterial 34(L) 35 - 45 mmHg [facility] PO2, Arterial 270(H) 85 - 104 mmHg [facility] Bicarbonate, Arterial 20.7 20.0 - 26.0 mmol/L [facility] Base Excess, Arterial -4.0(L) -3.0 - 3.0 mmol/L [facility] Hgb Blood Gas 13.7 11.7 - 15.5 gm/dL [facility] Oxyhemoglobin, Arterial 99.0(H) 94.0 - 97.0 % [facility] Carboxyhemoglob in, Arterial 0.5 % [facility] Comment: Nonsmokers: 0.5-1.5% COHB Smokers: Variable, but usually less than 10% Toxic: 20-30% COHB Lethal: Greater than 60% COHB Methemoglobin, Arterial 0.1 <=1.5 % [facility] Na Whole Blood 140 135 - 145 mmol/L [facility] K Whole Blood 3.3(L) 3.5 - 5.0 mmol/L [facility] Comment: Please note: Patients with WBC >100,000 may have falsely elevated Potassium levels. Contact the Clinical Chemistry Laboratory if there are any questions. ICa Whole Blood 1.14(L) 1.15 - 1.33 mmol/L [facility] Comment: Note: ??Total bilirubin higher than 20 mg/dL may lead to falsely low ionized calcium. CL Whole Blood 108(H) 98 - 107 mmol/L [facility] Gluc Whole Bld 133 65 - 199 mg/dL [facility] Comment:Diabetes: >=200 mg/d L plus symptoms. Lactate WB 1.3 0.5 - 2.2 mmol/L [facility] FIO2 Art 56 % [facility] PF Ratio Art 482 [facility] Blood specimen (specimen) 08/21/2018 2:45 PM EDT 08/21/2018 2:45 PM EDT Romi Velazquez MD POINT OF CARE TEST O RDERABLES [facility] [place] [address] documented in this encounter Visit Diagnoses Not [...] PM EDT 100 mg lactated ringers infusion 100 mL/hr, Intravenous, CONTINUOUS, Starting on Fri08/22/18 at 0200, Until Fri08/22/18 at 183 New Bag 08/22/2018 9:43 AM EDT 100 [...] on Fri08/21/18 at 2002, Until 08/22/18 at 183, [...] Procedure), Routine 1100 (Given - Provider: Trent See, RN) acetaminophen (TYLENOL) tablet 1,000 mg 1,000 mg, Oral, EVERY 6 HOURS SCHEDULED, First dose on Fri08/21/18 at 2030, Until Discontinued, Do not exceed 4,000 mg in 24 hours, Routine 2030 (Not Given - Provider: Rosi Ceja RN - Reason: See comment - Comment: patient refused at this time)2351 (Given - Provider: Monserrat Greene RN) 0556 (Given - Provider: Alicia Muller RN)1157 (Given - Provider: Rachel Dutton, RN) ceFAZolin (ANCEF) 1g in dextrose 5% 50mL (COMPLETED) 1 g, Intravenous, EVERY 8 HOURS, 2 doses, First dose on 08/22/18 at 0100, Last dose on Fri08/22/18 at [...] on Fri08/21/18 at 2200, Until Discontinued, Routine 2144 (Given - Provider: Rosi Ceja, CLEMENT) 0944 (Given - Provider: Rachel Dutton, RN) gentamicin 80 mg in sodium chloride 0.9% 100mL (COMPLETED) 80 mg, Intravenous, EVERY 8 HOURS, 1 dose, First dose on Fri08/21/18 at 2030, Administer over 60 Minutes, This medication may have an associated drug lab level. Please check for lab orders. Warning Vesicant/Irritant Medication , Indication for (Active or Suspected): Prophylaxis 2204 (New Bag - Provider: Rosi Ceja, CLEMENT)230 (Stopped - Provider: Monserrat Greene, RN) ondansetron (ZOFRAN) tablet 4 mg (COMPLETED) 4 mg, Oral, ONCE, 1 dose, On 08/22/18 at 1615, Routine 1608 (Given - Provid [...] Procedure) 1100 (New Bag - Provider: Trent See RN)2159 (New Bag - Provider: Rosi Ceja, CLEMENT) lactated ringers infusion 100 mL/hr, Intravenous, CONTINUOUS, Starting on 08/22/18 at 0200, Until 08/22/18 at 1839 2330 (New Bag - Provider: Monserrat Greene, RN) 0500 (Rate/Dose Verify - Provider: Alicia Muller RN)0943 (New Bag - Provider: Rachel Dutton, RN) [...] Routine 2044 (Given - Provider: Rosi Ceja RN) HYDROmorphone (DILAUDID) injection 0.2-0.4 mg (CANCELED) 0.2-0.4 [...] Day of Surgery (Day of Procedure), Routine 111 (Given - Provider: Trent See RN) lidocaine (XYLOCAINE) 10 mg/mL (1 %) injection 3 mg 3 mg (0.3 mL), Subcutaneous, ONCE PRN, 1 dose, Starting on Fri08/21/18 at 2004, Until 08/22/18 at 1839, for discomfort with [...] Fri08/21/18 at 2003, Until 08/22/18 at 183, Constipation, Administer if no bowel movement within [...] Routine documented in this encounter Care Teams Legal Assistant Relationship Specialty Start Date End Date Richie [place]endez [place] [address] [place] [address] PCP - General Family Medicine 03/27/18 documented as of this encounter
--- OUTSIDE RECORDS SUMMARY | 2023-09-23 16:05 | XMS_ITS | Encounter Summary ---
Author Organization [facility] Address [facility] [place] [address] Care Team Providers Care Hammer Shop Supervisor Name Role Phone Richie Mendez DO Primary Care Provider [phone] Encounter Details Date Type Department Care Team (Late st Contact Info) Description 01/29/2019 10:40 AM EST [place] [address] Romi Velazquez MD [facility] [place] [address] Lower abdominal pain Social History Tobacco Use Types Packs/Day Years [...] Progress Notes * Romi Velazquez MD - 01/29/2019 10:40 AM EST UROLOGY OUTPATIENT FOLLOW UP CHIEF COMPLAINT: Follow up surgery HISTORY OF PRESENT ILLNESS Paz Phillips is a 78 y.o. female with a long standing history of recurrent urolithiasis presenting with her for discussion of left hydroureteronephrosis. Her pertinent urologic historyis as follows. 2002: She recalls undergoing SWL in [place] which failed to fully fragment the stone; she then underwent ureteroscopy (reportedly complex/difficult) as well as repeat SWL; she is unsure if she evercleared all of the stone fragments. By report, a KUB was obtained in 2006 which did not show definote stone. 2009: She was seen in [place] with 3-4 months of moderate LLQ pain radiating towards her psilteral labia as well as suspected bladder spasms and was found to have obstruction of the left ureter on CT imaging. She underwent attempt at URS by Dr. Black at [facility]. She was found to have left hydroureteronephrosis [...] lap nephrectomy. 03/27/18: [facility] [...] right lower quadrant pain, sharp, comes on whendoing dishes, and turning in bed. Different than preop pain. No nausea or vomiting. Moving bowels. Quite bothersome. Activity makes worse, nothing makes better. 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 Discussed further work up with cross sectional imaging. Given solitary kidney discussed starting with non con CT abd/pelvis. I will call with result to discuss future plan. Discussed may need further contrast imaging pending findings and she is OK with this. In the interim will prescribe lidocaine patches to see if this gives symptomatic relief. They will present urgently with worrisome symptoms. In PLAN -F/U CT scan [...] site documented in this encounter Care Teams Hammer Shop Supervisor Relationship Specialty Start Date End Date Richie Mendez DO [address] [place] [address] PCP - General Family Medicine 03/27/18 documented as of this encounter
--- OUTSIDE RECORDS SUMMARY | 2023-09-23 16:05 | XMS_ITS | Encounter Summary ---
Author Organization [facility] Address [facility] [place] [address] Care Team Providers Care Behavioral Health Director Name Role Phone Richie Mendez DO Primary Care Provider [phone] Encounter Details Date Type Department Care Team (Latest Contact Info) Description 12/10/2018 10:00 AM EDT Office Visit Urology at [facility] [place] [address] Romi Velazquez MD [facility] [place] [address] Follow-up exam after treatment; Other symptoms and signs involving the genitourinary system Social History Tobacco Use Types Packs/Day Years [...] Progress Notes * Romi Velazquez MD - 12/10/2018 10:00 AM EDT UROLOGY OUTPATIENT FOLLOW UP CHIEF COMPLAINT: Follow up surgery HISTORY OF PRESENT ILLNESS Paz Phillips is a 78 y.o. female with a long standing history of recurrent urolithiasis presenting with her for discussion of left hydroureteronephrosis. Her pertinent urologic historyis as follows. 2002: She recalls undergoing SWL in [place] which failed to fully fragment the stone; she then underwent ureteroscopy (reportedly complex/difficult) as well as repeat SWL; she is unsure if she evercleared all of the stone fragments. By report, a KUB was obtained in 2006 which did not show definote stone. 2009: She was seen in [place] with 3-4 months of moderate LLQ pain radiating towards her psilteral labia as well as suspected bladder spasms and was found to have obstruction of the left ureter on CT imaging. She underwent attempt at URS by Dr. Black at [facility]. She was found to have [...] lap nephrectomy. 03/27/18: seen by me at [facility] [place]. 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 Romi Velazquez MD * Romi Velazquez MD - 12/10/2018 10:00 AM EDT No treatment necessary. Status: Final result ?Visible to patient: No (Not Released) Next appt: None Dx: Follow-up exam after treatment; Other... Specimen Information: Clean Catch Urine ?? Component Urine Culture No growth (Less than 1,000 cfu/ml). Resulting Agency [facility] Lab Resulting Agency's Comment Spec In Lab Specimen Collected: 12/10/18 10:45 documented in this encounter Miscellaneous Notes * Addendum Note - Emelina Del Rio RN - 12/10/2018 10:00 AM EDTAddended by: EMELINA DEL RIO on: 12/10/2018 10:45 AM Modules accepted: Orders documented in this encounter Plan of Treatment Not on file documented as of this encounter Procedures Procedure Name Priority Date/Time Associated Diagnosis Comments HC URINALYSIS ROUTINE Routine 12/10/2018 10:45 AM EDT Follow-up exam after treatment Other symptoms and signs involving the genitourinary system HC URINE CULTURE Routine 12/10/2018 10:4 5 AM EDT Follow-up exam after treatment Other symptoms and signs involving the genitourinary system documented in this encounter Results * Urine culture Clean Catch Urine (12/10/2018 10:45 AM EDT) Urine Culture No growth (Less than 1,000 cfu/ml). [facility] Urine specimen obtained by clean catch procedure (specimen) 12/10/2018 10:45 AM EDT 12/10/2018 2:35 PM EDT Narrative Resulting Agency Comment Spec In Lab Romi Velazquez MD MICROBIOLOGY - GENER AL ORDERABLES [facility] [place] [address] * (ABNORMAL) _Urinalysis with microscopic (12/10/2018 10:45 AM EDT) Glucose, Urine Dipstick Negative Negative mg/dL [facility] Protein, Urine Dipstick Negative Negative mg/dL [facility] Bilirubin, Urine Dipstick Negative Negative mg/dL [facility] Comment: Clinical correlation required for positive Urine Bilirubin results as false positive may occur with some drugs and drug related products. If a false positive is suspected a serum total bilirubin should be considered if clinically indicated. Urobilinogen, Urine Dipstick Normal Normal mg/dL [facility] pH, Urn (dipstick) 6.5 5.0 - 8.0 [facility] Blood, Urine Dipstick Trace(A) Negative mg/dL [facility] Ketone, Urine Dipstick Negative Negative mg/dL [facility] Nitrite, Urine Dipstick Negative Negative [facility] Leukocytes, Urine Dipstick Trace(A) Negative [facility] Appearance, Urine Dipstick Clear Clear [facility] Specific [place] Urine Automated 1.008 1.002 - 1.030 [facility] Color, Urine Dipstick Yellow Yellow [facility] RBC, Urine 0 0 - 4 /HPF [facility] WBC, Urine 1 0 - 5 /HPF [facility] Urine specimen (specimen) 12/10/2018 10:45 AM EDT 12/10/2018 1:32 PM EDT Narrative Resulting Agency Comment Spec In Lab Romi Velazquez MD URINE ORDERABLES [facility] [place] [address] documented in this encounter Visit Diagnoses Diagnosis Follow-up exam after treatment Unspecified follow-up examination Other symptoms and signs involving the genitourinary system documented in this encounter Care Teams Behavioral Health Director Relationship Specialty Start Date End Date Richie Mendez DO [address] [place] [address] PCP - General Family Medicine 03/27/18 documented as of this encounter
--- OUTSIDE RECORDS SUMMARY | 2023-09-23 16:05 | XMS_ITS | Encounter Summary ---
Author Organization [facility] Address [facility] [place] [address] Care Team Providers Care Loan Consultant Name Role Phone Richie Mendez DO Primary Care Provider [phone] Encounter Details Date Type Department Care Team (Late st Contact Info) Description 03/04/2019 10:40 AM EST Office [place] [address] oRmi Velazquez MD [facility] [place] [address] Surgical followup Social History Tobacco Use Types Packs/Day Years [...] 36.9 ??C (98.5 ??F) 03/04/2019 10:[address] Respiratory Rate 20 03/04/2019 10:54 AM EST Oxygen Saturation - - Inhaled Oxygen Concentration - - Weight 61.2 kg (135 lb) 03/04/2019 10:54 AM EST Height 152.4 cm (5') 03/04/2019 10:54 AM EST Body Mass Index 26.37 03/04/2019 10:54 AM EST documented in this encounter Progress Notes * Romi Velazquez MD - 03/04/2019 10:40 AM EST UROLOGY OUTPATIENT FOLLOW UP CHIEF COMPLAINT: Follow up surgery HISTORY OF PRESENT ILLNESS Paz Phillips is a 78 y.o. female with a long standing history of recurrent urolithiasis presenting with her for discussion of left hydroureteronephrosis. Her pertinent urologic historyis as follows. 2002: She recalls undergoing SWL in [place] which failed to fully fragment the stone; she then underwent ureteroscopy (reportedly complex/difficult) as well as repeat SWL; she is unsure if she evercleared all of the stone fragments. By report, a KUB was obtained in 2006 which did not show definote stone. 2009: She was seen in [place] with 3-4 months of moderate LLQ pain radiating towards her psilteral labia as well as suspected bladder spasms and was found to have obstruction of the left ureter on CT imaging. She underwent attempt at URS by Dr. Black at [facility]. She was found to have left [...] lap nephrectomy. 03/27/18: seen by [place] [facility] 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 Nopalpable masses or obvious hernias : No CVA [...] the 5mm distal stone as compared to 2010CT 02/01/19: CT s/p left nephrectomy - fat containing hernia similar in appearance to 02/26/18- no bowel dilation. ASSESSMENT 1. Recent history or persistent bro-incisional pain post s/p left HALap Nx. This has now completely resolved and she is having no worrisome GI symptoms. Reviewed all available prior CT and appears that she has a stable fat containing hernia which is now completely asymptomatic. Discussed observation vs. Proceeding with her scheduled operative exploration. At this point she favors observation Karlene think that is reasonable. We reviewed worrisome symptoms to return for including pain, nausea, vomiting, etc. All questions answered. PLAN -F/U PRN Romi Velazquez MD documented in this encounter Plan of Treatment Not on file documented as of this encounter Visit Diagnoses Diagnosis Surgical followup Follow-up examination, following unspecified surgery documented in this encounter Care Teams Loan Consultant Relationship Specialty Start Date End Date Richie Mendez DO [address] [place] [address] PCP - General Family Medicine 03/27/18 documented as of this encounter
--- OUTSIDE RECORDS SUMMARY | 2023-09-23 16:05 | XMS_ITS | Encounter Summary ---
Author Organization [facility] Address [facility] [place] [address] Care Team Providers Care Rehab Liaison Name Role Phone Richie Mendez DO Primary Care Provider [phone] Encounter Details Date Type Department Care Team (Late st Contact Info) Description 07/14/2018 [place] [id number] Romi Velazquez MD [facility] [place] [address] Social History Tobacco Use Types Packs/Day Years Used Date Smoking Tobacco: Never Sex and Gender Information Value Date Recorded Sex Assigned at Not on file Gender Identity Not on file Sexual Orientation Not on file documented as of this encounter Miscellaneous Notes * Telephone Encounter - Beth Rodriguez - 07/14/2018 8:10 AM EDT Patient calling to be seen in the clinic today. She is not feeling better and was seen at [facility] (seetelephone note by Dr. Randolph). I paged a resident as is not in clinic today. She can be reached at [phone]. documented in this encounter Plan of Treatment Not on file documented as of this encounter Visit Diagnoses Not on filedocumented in this encounter Care Teams Rehab Liaison Relationship Specialty Start Date End Date Richie Mendez DO [address] [place], [place] [address] PCP - General Family Medicine 03/27/18 documented as of this encounter
--- OUTSIDE RECORDS SUMMARY | 2023-09-23 16:05 | XMS_ITS | Encounter Summary ---
Author Organization [facility] [place] [address] Care Team Providers Care Rn Homecare Name Role Phone Richie Mendez DO Primary Care Provider [phone] Encounter Details Date Type Department Care Team (Latest Contact Info) Description 01/14/2020 2:16 PM EST - 01/14/2020 11:59 PM EST Hospital [place] [address] Discharge Disposition: Home Social History Tobacco Use [...] Start Date End Date lidocaine-menthol 4-1 % Adhesive Patch, Medicated Apply 1 patch topically over 24 hrs. 7 patch 01/29/2019 acetaminophen (TYLENOL) 500 mg Tablet Take 1,000 mg by mouth every 6 hours as needed for Pain. documented as of this encounter Plan of Treatment Not on file documented as of this encounter Procedures Procedure Name Priority Date/Time Associated Diagnosis Comments COVID-19 PCR Routine 01/14/2020 9:13 AM EST documented in this encounter Results * COVID-19 PCR (01/14/2020 9:13 AM EST) SARS-CoV-2 RNA Not Detected Not Detected [facility] Comment: This result should be interpreted in combination with the clinical observations, patient history and epidemiological information in making a final diagnosis. For testing of asymptomatic individuals, assay performance characteristics and clinical utility have not been evaluated. Testing for SARS-CoV-2 (Severe acute respiratory syndrome coronavirus 2, formerly known as 2019 novel coronavirus or 2019-nCoV) to aid in the diagnosis of COVID-19 is performed using the Back RealTime SARS-CoV-2 Assay as authorized by the FDA Emergency Use Authorization (EUA). This EUA assay is intended for In-vitro Diagnostic (IVD) use with respiratory specimens such as nasopharyngeal swabs collected from individuals during the acute phase of infection. This assay is performed based on the instructions for use provided by [employer] and additional guidance provided by CDC and FDA. Testing is performed in the [facility] within the Department of Pathology and Laboratory Medicine at [facility], certified under the Clinical Laboratory Improvement Amendments of 1988 (CLIA), 42 U.S.C. 263a, to perform high complexity tests. Assay performance has been verified according to clinical laboratory regulatory requirements for use with specimens collected from individuals suspected of COVID-19. Test results are provided above. A result of ? Not Detected? indicates that the viral RNA target is not present above the limit of detection, but does not preclude SARS-CoV-2 infection. False negative results may occur if a specimen is improperly collected, transported or handled; if amplification inhibitors are present; or if inadequate numbers of viral particles are present in the specimen. When a diagnostic test is negative, the possibility of a false negative result should be considered in the context of a patient? s recent exposures and the presence of clinical signs and symptoms consistent with COVID-19. A result of ? Detected? indicates that RNA from SARS-CoV-2 was detected and the patient is infected. As required or requested by public health authorities, positive specimens may be sent for additional testing. Positive and negative predictive values for this test are highly dependent on disease prevalence. A result of ? Invalid? indicates that neither the viral RNA targets nor the internal control target was detected. An invalid result suggests the presence of inhibitors. Recollection and re-testing is recommended in the case of an invalid result. CDC COVID-19 criteria for testing on human specimens and clinical management guidance information are available at the CDC Coronavirus Disease 2019 (COVID-19) webpage under ? Information for Healthcare Professionals? (https://www.cdc.gov/coronavirus/2019-ncov/hcp/index.html) Additional information about this and other EUA tests can be found in provider and patient fact sheets at the following FDA website: https://www.fda.gov/medical-devices/bwxoohkyemp-ufdcrzx-2094-pafmu-15-qlmkyvvhd- use-a twoltcnshbrmx-ljrdvtp-aztsnbi/yhrvx-qcaksdbkkba-cukx SARS-CoV-2 RNA Source Nasal [facility] Specimen from nose (specimen) Other / Unknown 01/14/2020 9:13 AM EST 01/14/2020 11:19 PM EST Narrative Resulting Agency Comment Spec In Lab Oanh Mishra MD MOLECULAR ORDERABLES Performing Organization Address City/State/[facility] Co de Phone Number [facility] [place] [address] documented in this encounter Visit Diagnoses Not on filedocumented in this encounter Care Teams Rn Homecare Relationship Specialty Start Date End Date Richie Mendez DO [address] [place] [address] PCP - General Family Medicine 03/27/18 documented as of this encounter
--- OUTSIDE RECORDS SUMMARY | 2023-09-23 16:05 | XMS_ITS | Clinical Summary ---
Author Organization [facility] Address [facility] [place] [address] Care Team Providers Care Operator Prefinish Name Role Phone Richie Mendez DO Primary Care Provider [phone] Allergies Active Allergy Reactions Criticality Noted Date Comments Codeine Phosphate High CIS - very sleepy Nsaids (Non-Steroidal Anti-Inflammatory Drug) Other (See Comments) 08/13/2018 Told she shouldn't take d/t kidney stones and left kidney being plugged Medications Medication Sig Dispensed Refills Start Date End Date Status acetaminophen (TYLENOL) 500 mg Tablet Take 1,000 mg by mouth every 6 hours as needed for Pain. Active lidocaine-menthol 4-1 % Adhesive Patch, Medicated Apply 1 patch topically over 24 hrs. 7 patch 01/29/2019 Active Additional Information Patient not taking.Reported on 03/04/2019 Active Problems Problem Noted Date Diagnosed Date Atrophic kidney 07/22/2018 Hydronephrosis, left 03/28/2018 [...] on file Sexual Orientation Not on file Last Filed Vital Signs [...] Health Maintenance Due Date Last Done Comments Hepatitis C Screening 1960 Tdap adult 1961 Tetanus vaccine 1961 Zoster vaccine (1 of 2) 1992 Advance Directive 1997 Bone Density Scan 11/06/2007 Pneumoccocal Vaccine: 65+ (1 of 1 - PCV) 11/06/2007 Covid-19 Vaccine (1 - 2022- season) 2022 Influenza (Flu) vaccine (1 o f 1 - Influenza standard series) 10/19/2023 Advance Directives * Full Code (Latest Code Status on File) Date Activated Date Inactivated Comments 08/21/2018 7:59 PM 08/22/2018 6:44 PM Question Answer Comments Does patient have capacity to make decision: Yes * Full Code Date Activated Date Inactivated Comments 08/21/2018 11:21 AM 08/21/2018 7:59 PM Question Answer Comments Does patient have capacity to make decision: Yes Care Teams Operator Prefinish Relationship Specialty Start Date End Date Richie Mendez DO [address] [place] [address] PCP - General Family Medicine 03/27/18
--- OUTSIDE RECORDS SUMMARY | 2023-09-23 16:05 | XMS_ITS | Encounter Summary ---
Author Organization [facility] Address [facility] [place] [place] [address] Care Team Providers Care Cotton Tier Name Role Phone Richie Mendez DO Primary Care Provider [phone] Encounter Details Date Type Department Care Team (Late st Contact Info) Description 01/29/2019 [place] [phone] Romi Velazquez MD [facility] [place] [address] Social History Tobacco Use Types Packs/Day Years [...] * Telephone Encounter - Kirt Suero - 01/29/2019 11:[address] scan order to [facility] [phone] - they will protocol and call pt to schedule. documented in this encounter Plan of Treatment Not on file documented as of this encounter Visit Diagnoses Not on filedocumented in this encounter Care Teams Cotton Tier Relationship Specialty Start Date End Date Richie Mendez DO [address] [place] [address] PCP - General Family Medicine 03/27/18 documented as of this encounter
--- OUTSIDE RECORDS SUMMARY | 2023-09-23 16:05 | XMS_ITS | Encounter Summary ---
Author Organization [facility] Address [facility] [place] [address] Care Team Providers Care Boiler Cleaner Name Role Phone Richie Mendez DO Primary Care Provider [phone] Encounter Details Date Type Department Care Team (Late st Contact Info) Description 07/16/2018 11:40 AM EDT [place] [address] Romi Velazquez MD [facility] [place] [address] Atrophic kidney; Abnormal finding in urine Social History Tobacco Use Types Packs/Day Years Used Date Smoking Tobacco: Never Smokeless Tobacco: Never Sex and Gender Information Value Date Recorded Sex Assigned at Not on file Gender Identity Not on file Sexual Orientation Not on file documented as of this encounter Last Filed Vital Signs Vital Sign Reading Time Taken Comments Blood Pressure 151/79 07/16/2018 11:34 AM EDT Pulse 78 07/16/2018 11:34 AM EDT Temperature 36.7 ??C (98.1 ??F) 07/16/2018 11:34 AM E DT Respiratory Rate 18 07/16/2018 11:34 AM EDT Oxygen Saturation 99% 07/16/2018 11:34 AM EDT Inhaled Oxygen Concentration - - Weight 61.7 kg (136 lb) 07/16/2018 11:34 AM EDT Height 152.4 cm (5') 07/16/2018 11:34 AM EDT Body Mass Index 26.56 07/16/2018 11:34 AM EDT documented in this encounter Progress Notes * Romi Velazquez MD - 07/16/2018 11:40 AM EDT UROLOGY OUTPATIENT FOLLOW UP CHIEF COMPLAINT: Left lower quadrant / flank pain HISTORY OF PRESENT ILLNESS Paz Phillips is a 77 y.o. female with a long standing history of recurrent urolithiasis presenting with her for discussion of left hydroureteronephrosis. Her pertinent urologic historyis as follows. 2002: She recalls undergoing SWL in [place] which failed to fully fragment the stone; she then underwent ureteroscopy (reportedly complex/difficult) as well as repeat SWL; she is unsure if she evercleared all of the stone fragments. By report, a KUB was obtained in 2006 which did not show definote stone. 2009: She was seen in [place] with 3-4 months of moderate LLQ pain radiating towards her psilteral labia as well as suspected bladder spasms and was found to have obstruction of the left ureter on CT imaging. She underwent attempt at URS by Dr. Black at [facility]. She was found to have left [...] lap nephrectomy. 03/27/18: seen by me at [facility]. 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 No history tobacco Denies regular alcohol [...] on file documented as of this encounter Results * (ABNORMAL) Urine culture Clean Catch Urine (08/13/2018 10:40 AM EDT) Urine Culture 1,000-9,000 cfu/ml Gram Positive organisms , probable contaminant(A ) [facility] Urine specimen obtained by clean catch procedure (specimen) 08/13/2018 10:40 AM EDT 08/13/2018 11:10 AM EDT Narrative Resulting Agency Comment Spec In Lab Romi Velazquez MD MICROBIOLOGY - GENER AL ORDERABLES [facility] [place] [address] * (ABNORMAL) Basic Metabolic Panel (non-fasting) (08/13/2018 10:37 AM EDT) Glucose 98 65 - 199 mg/dL [facility] Comment:Diabetes: >=200 mg/d L plus symptoms Blood Urea Nitrogen 14 8 - 18 mg/dL [facility] Creatinine 1.06 0.70 - 1.20 mg/dL [facility] Sodium 143 135 - 145 mmol/L [facility] Potassium 5.1(H) 3.5 - 5.0 mmol/L [facility] Comment: Please note: ??Patients with WBC >100,000 may have falsely elevated Potassium levels. ??For accurate Potassium quantification in these patients send serum separator tube (gold top) for subsequent determinations. ??Contact the Clinical Chemistry Laboratory if there are any questions. Chloride 105 98 - 107 mmol/L [facility] Carbon Dioxide 28 22 - 31 mmol/L [facility] Anion Gap 10 5 - 15 mmol/L [facility] Calcium 10.2 8.5 - 10.5 mg/dL [facility] Est Glomerular Filtration Rate 51(L) >=60 mL/min/1. 73 m?? [facility] Comment: The eGFR was calculated using the CKD-EPI equation. As with all creatinine based estimates of kidney function, eGFR values calculated with the CKD-EPI equation are not accurate in patients with acute kidney failure, extremes of body mass or the acutely ill. [email or web address] eGFR 59(L) >=60 mL/min/1. 73 m?? [facility] Comment: The eGFR was calculated using the CKD-EPI equation. As with all creatinine based estimates of kidney function, eGFR values calculated with the CKD-EPI equation are not accurate in patients with acute kidney failure, extremes of body mass or the acutely ill. [email or web address] Blood specimen (specimen) 08/13/2018 10:37 AM EDT 08/13/2018 10:47 AM EDT Narrative Resulting Agency Comment Spec In Lab Romi Velazquez MD CHEMISTRY ORDERABLES [facility] [place] [address] documented in this encounter Visit Diagnoses Diagnosis Atrophic kidney Renal sclerosis, unspecified Abnormal finding in urine Other nonspecific finding on examination of urine documented in this encounter Care Teams Boiler Cleaner Relationship Specialty Start Date End Date Richie Mendez DO [address] [place] [address] PCP - General Family Medicine 03/27/18 documented as of this encounter
--- OUTSIDE RECORDS SUMMARY | 2023-09-23 16:05 | XMS_ITS | Encounter Summary ---
Author Organization [facility] Address [facility] [facility] [place] [address] Care Team Providers Care Senior Web Applications Developer Name Role Phone Richie Mendez DO Primary Care Provider [phone] Encounter Details Date Type Department Care Team (Late st Contact Info) Description 01/19/2019 Telephone [place] [phone] Romi Velazquez MD [facility] [address] Social History Tobacco Use Types Packs/Day Years [...] encounter Miscellaneous Notes * Telephone Encounter - Romi Velazquez MD - 01/19/2019 10:36 AM EST Called Mrs. Rosales to check in, spoke with her as she was out helping at the [employer]. She is still having intermittent abdominal discomfort- no GI symptoms. She has been very busy withdBMEDx activities with the holidays. Her pain is relatively well controlled. Suspect nerve related but have asked her to present in the next 2-3weeks for evaluation and possible discussion of abdominal imaging pending exam. I have relayed that she should present urgently with worsening / severe uncontrolled pain, vomiting, or other GI concerns. All questions answered. Romi Velazquez MD documented in this encounter Plan of Treatment Not on file documented as of this encounter Visit Diagnoses Not on filedocumented in this encounter Care Teams Senior Web Applications Developer Relationship Specialty Start Date End Date Richie Mendez DO [address] [place] [address] PCP - General Family Medicine 03/27/18 documented as of this encounter
--- OUTSIDE RECORDS SUMMARY | 2023-09-23 16:05 | XMS_ITS | Encounter Summary ---
Author Organization [facility] Address [facility] [place] [address] Care Team Providers Care Circus Artist Name Role Phone Richie Mendez DO Primary Care Provider [phone] Encounter Details Date Type Department Care Team (Late st Contact Info) Description 07/14/2018 [place] [phone] Virgie Wheat MD [facility] [place] [address] Social History Tobacco Use Types Packs/Day Years Used Date Smoking Tobacco: Never Sex and Gender Information Value Date Recorded Sex Assigned at Not on file Gender Identity Not on file Sexual Orientation Not on file documented as of this encounter Miscellaneous Notes * Telephone Encounter - Virgie Wheat MD - 07/14/2018 8:27 AM EDT I called Mrs Phillips back. She continues to have left sided flank pain. Is taking tylenol 1000 mg every 6 hours and oxycodone that she was given at OSH ED sparingly. The pain is minimal right now, but was severe over night. I explained that she may need to ultimately have the kidney removed (per Dr Randolph's note), but that we would need to place a PCN in the interim as a temporizing measure if the pain is too severe or if she develops a fever. Right now I will request an appt with Dr Marcus Randolph (soonest available). I told her that she should come to the ED in the interim if the above symptoms, and we would have IR place the neph tube. She understands and agrees to the plan. documented in this encounter Plan of Treatment Not on file documented as of this encounter Visit Diagnoses Not on filedocumented in this encounter Care Teams Circus Artist Relationship Specialty Start Date End Date Richie Mendez DO [address] [facility] [place] [address] PCP - General Family Medicine 03/27/18 documented as of this encounter
--- OUTSIDE RECORDS SUMMARY | 2023-09-23 16:05 | XMS_ITS | Encounter Summary ---
Author Organization [facility] Address [facility] [place] [address] Care Team Providers Care Rubber Chemist Name Role Phone Richie Mendez DO Primary Care Provider [phone] Encounter Details Date Type Department Care Team (Late st Contact Info) Description 02/01/2019 [place] [phone] Romi Velazquez MD [facility] [place] [address] Social History Tobacco Use Types Packs/Day Years [...] encounter Miscellaneous Notes * Telephone Encounter - Aleksandra Briceño - 02/01/2019 4:00 PM EST Pt called to let Dr. Velazquez know that she had the CT in [facility] today. documented in this encounter Plan of Treatment Not on file documented as of this encounter Visit Diagnoses Not on filedocumented in this encounter Care Teams Rubber Chemist Relationship Specialty Start Date End Date Richie Mendze DO [address] [place] [address] PCP - General Family Medicine 03/27/18 documented as of this encounter
--- OUTSIDE RECORDS SUMMARY | 2023-09-23 16:05 | XMS_ITS | Encounter Summary ---
Author Organization [facility] Address [facility] [place] [address] Care Team Providers Care Casting And Locker Room Servicer Name Role Phone Richie Mendez DO Primary Care Provider [phone] Encounter Details Date Type Department Care Team (Late st Contact Info) Description 02/04/2019 Tele[place] [phone] Romi Velazquez MD [facility] [place] [address] Social History Tobacco Use Types Packs/Day Years [...] a knuckle of fat poking out of thefascia near the periumbilical incision. She has no pain today. No fevers, chills, nausea, or vomiting. I have recommended since she has had symptoms intermittently I have recommended we plan to repair this in the OR. She would like to defer a few weeks as she has a family member that had a massive IN. I have counseled her to call or present with any worrisome symptoms. We will begin to look for OR time in the interim. Romi Velazquez MD documented in this encounter Plan of Treatment Not on file documented as of this encounter Visit Diagnoses Not on filedocumented in this encounter Care Teams Casting And Locker Room Servicer Relationship Specialty Start Date End Date Richie Mendez DO [address] [place] [address] PCP - General Family Medicine 03/27/18 documented as of this encounter
--- OUTSIDE RECORDS SUMMARY | 2023-09-23 16:05 | XMS_ITS | Encounter Summary ---
Author Organization [facility] Address [facility] [place] [address] Care Team Providers Care Direct Support Staff Name Role Phone Richie Mendez DO Primary Care Provider [phone] Encounter Details Date Type Department Care Team (Late st Contact Info) Description 02/04/2019 [place] [phone] Romi Velazquez MD [facility] [place] [address] Social History Tobacco Use Types Packs/Day Years [...] Miscellaneous Notes * Telephone Encounter - Aleksandra Fischer - 02/04/2019 10:49 AM EST PT called back. She reports that she has decided to move forward with the surgery. Told PT that I would send a message to Dr Velazquez, she would put the surgical orders in, and then Marleny our manager surgical would call her to schedule. PT understands and agrees to plan. [phone] documented in this encounter Plan of Treatment Not on file documented as of this encounter Visit Diagnoses Not on filedocumented in this encounter Care Teams Direct Support Staff Relationship Specialty Start Date End Date Richie Mendez DO [address] [place] [address] PCP - General Family Medicine 03/27/18 documented as of this encounter
--- OUTSIDE RECORDS SUMMARY | 2023-09-23 16:05 | XMS_ITS | Encounter Summary ---
Author Organization [facility] Address [facility] [address] Care Team Providers Care Title Officer Name Role Phone Yuryjose juanRichie DO Primary Care Provider [phone] Encounter Details Date Type Department Care Team (Late st Contact Info) Description 08/28/2018 Telephone [place] [phone] Romi Velazquez MD [facility] [place] [address] Social History Tobacco Use Types Packs/Day Years [...] * Telephone Encounter - Beth Rodriguez - 08/28/2018 12:[address] Velazquez, this pt called asking me to send her op note through the mail. I just wanted to check with you first because it looks like she hasn't had her post op visit yet. I don't know if you'd like me to wait until she sees you or can I send it to her now? Let me know. Thanks! documented in this encounter Plan of Treatment Not on file documented as of this encounter Visit Diagnoses Not on filedocumented in this encounter Care Teams Title Officer Relationship Specialty Start Date End Date Richie Mendez DO [address] [place] [address] PCP - General Family Medicine 03/27/18 documented as of this encounter
--- OUTSIDE RECORDS SUMMARY | 2023-09-23 16:05 | XMS_ITS | Encounter Summary ---
Author Organization [facility] Address [facility] [place] [address] Care Team Providers Care Roofing Layer Name Role Phone Richie Mendez DO Primary Care Provider [phone] Encounter Details Date Type Department Care Team (Latest Contact Info) Description 08/13/2018 10:00 AM EDT Clinical Support Same Day at [facility] [place] [address] Atrophic kidney; Abnormal finding in urine Social History Tobacco Use Types Packs/Day Years Used Date Smoking Tobacco: Never Smokeless Tobacco: Never Alcohol Use Standard Drinks/Week Comments Yes 0 (1 standard drink = 0.6 oz pur e alcohol) Sex and Gender Information Value Date Recorded [...] documented in this encounter Progress Notes * Alee Cifuentes RN - 08/13/2018 10:00 AM [...] Procedure Name Priority Date/Time Associated Diagnosis Comments URINE CULTURE Routine 08/13/2018 10:40 AM EDT Abnormal finding in urine Atrophic kidney ABORH RECHECK STATUS Routine 08/13/2018 10:37 AM EDT HEMOGRAM Routine 08/13/2018 10:37 AM EDT Atrophic kidney DIFFERENTIAL, AUTOMATED Routine 08/13/2018 10:37 AM EDT Atrophic kidney ABO/RH TYPING Routine 08/13/2018 10:37 AM EDT Atrophic kidney CBC (WITH DIFF) Routine 08/13/2018 10:37 AM EDT Atrophic kidney ANTIBODY SCREEN Routine 08/13/2018 10:37 AM EDT Atrophic kidney TYPE AND SCREEN ([facility]ANY[facility]) Routine 08/13/2018 10:37 AM EDT Atrophic kidney BASIC METABOLIC PANEL STAT 08/13/2018 10:37 AM EDT Atrophic kidney documented in this encounter Results * (ABNORMAL) Urine culture Clean Catch Urine (08/13/2018 10:40 AM EDT) Urine Culture 1,000-9,000 cfu/ml Gram Positive organisms , probable contaminant(A ) [facility] Urine specimen obtained by clean catch procedure (specimen) 08/13/2018 10:40 AM EDT 08/13/2018 11:10 AM EDT Narrative Resulting Agency Comment Spec In Lab Romi Velazquez MD MICROBIOLOGY - GENER AL ORDERABLES [facility] [place] [address] * ABORH Recheck Status (08/13/2018 10:37 AM EDT) ABORH Recheck Order Order Placed [facility] ABORH Type Recheck Complete [facility] Blood specimen (specimen) 08/13/2018 10:37 AM EDT 08/13/2018 10:49 AM EDT Narrative Resulting Agency Comment Spec In Lab Romi Velazquez MD BLOOD BANK LAB ORDER KAITLIN [facility] [place] [address] * Antibody screen (08/13/2018 10:37 AM EDT) Pathologist [facility] Ab Screen Interp Negative [facility] Expires at [id number] on: 08/24/2018 [facility] Blood specimen (specimen) 08/13/2018 10:37 AM EDT 08/13/2018 10:49 AM EDT Narrative Resulting Agency Comment Spec In Lab Romi Velazquez MD BLOOD BANK LAB ORDER KAITLIN Performing Organization Address City/[facility]/ZIP Co de Phone Number [facility] [place] [address] * ABO/Rh Typing (08/13/2018 10:37 AM EDT) ABORH Type A Pos [facility] Blood specimen (specimen) 08/13/2018 10:37 AM EDT 08/13/2018 10:49 AM EDT Narrative Resulting Agency Comment Spec In Lab Romi Velazquez MD BLOOD BANK LAB ORDER KAITLIN [facility] [place] [address] * Differential, Automated (08/13/2018 10:37 AM EDT) Neutrophil % 64.4 % [facility] Neutrophil Absolute 3.67 1.70 - 6.10 x10(3)/[facility] Lymph % 25.8 % [facility] Lymphocytes Abs 1.5 0.9 - 3.2 x10(3)/[facility] Monocyte % 6.8 % [facility] Monocyte Abs 0.4 0.3 - 0.9 x10(3)/[facility] Eos % 2.1 % [facility] Eosinophils Abs 0.1 0.0 - 0.4 x10(3)/[facility] Basophil % 0.5 % [facility] Baso Absolute 0.0 0.0 - 0.1 x10(3)/[facility] Immature Gran % 0.40 % [facility] Comment: Immature granulocytes(IG's)percentage and absolute count will include metamyelocytes, myelocytes, and promyelocytes. Blood smears from CBCs yielding IG's will be scanned manually for concordance. If this scan disagrees with the automated IG or if promyelocytes are noted, a manual differential will be performed. Immature Gran Absolute 0.02 0.00 - 0.04 x10(3)/[facility] Blood specimen (specimen) 08/13/2018 10:37 AM EDT 08/13/2018 10:47 AM EDT Narrative Resulting Agency Comment Spec In Lab Romi Velazquez MD HEMATOLOGY ORDERABLE S [facility] [place] [address] * (ABNORMAL) Hemogram (08/13/2018 10:37 AM EDT) White Blood Cell 5.7 4.0 - 9.5 x10(3)/[facility] Red Blood Cell 4.96 4.00 - 5.21 x10(6)/[facility] Hemoglobin 14.3 11.7 - 15.5 gm/dL [facility] Hematocrit 46.1(H) 35.7 - 45.8 % [facility] Mean Cell Volume 92.9 82.6 - 94.4 fL [facility] Mean Cell Hemoglobin 28.8 27.1 - 32.0 pg [facility] Mean Cell Hemoglobin Concentration 31.0(L) 31.7 - 35.0 gm/dL [facility] Platelet 208 145 - 357 x10(3)/mc L [facility] RDW Standard Deviation 48.9(H) 37.0 - 46.0 fL [facility] RDW coefficient of variation 14.2(H) 11.5 - 14.1 % [facility] Mean Platelet Volume 11.2 7.6 - 12.9 fL [facility] NRBC% auto 0.0 % [facility] NRBC Absolute 0.000 0.000 - 0.000 x10(3)/mc L [facility] Blood specimen (specimen) 08/13/2018 10:37 AM EDT 08/13/2018 10:47 AM EDT Narrative Resulting Agency Comment Spec In Lab Romi Velazquez MD HEMATOLOGY ORDERABLE S [facility] [place] [address] * (ABNORMAL) Basic Metabolic Panel (non-fasting) (08/13/2018 10:37 AM EDT) Glucose 98 65 - 199 mg/dL [facility] Comment:Diabetes: >=200 mg/d L plus symptoms Blood Urea Nitrogen 14 8 - 18 mg/dL [facility] Creatinine 1.06 0.70 - 1.20 mg/dL [facility] Sodium 143 135 - 145 mmol/L [facility] Potassium 5.1(H) 3.5 - 5.0 mmol/L [facility] Comment: Please note: ??Patients with WBC >100,000 may have falsely elevated Potassium levels. ??For accurate Potassium quantification in these patients send serum separator tube (gold top) for subsequent determinations. ??Contact the Clinical Chemistry Laboratory if there are any questions. Chloride 105 98 - 107 mmol/L [facility] Carbon Dioxide 28 22 - 31 mmol/L [facility] Anion Gap 10 5 - 15 mmol/L [facility] Calcium 10.2 8.5 - 10.5 mg/dL [facility] Est Glomerular Filtration Rate 51(L) >=60 mL/min/1. 73 m?? [facility] Comment: The eGFR was calculated using the CKD-EPI equation. As with all creatinine based estimates of kidney function, eGFR values calculated with the CKD-EPI equation are not accurate in patients with acute kidney failure, extremes of body mass or the acutely ill. http://[employer]/DHnkf eGFR 59(L) >=60 mL/min/1. 73 m?? [facility] Comment: The eGFR was calculated using the CKD-EPI equation. As with all creatinine based estimates of kidney function, eGFR values calculated with the CKD-EPI equation are not accurate in patients with acute kidney failure, extremes of body mass or the acutely ill. http://[employer]/DHShopEatnkf Blood specimen (specimen) 08/13/2018 10:37 AM EDT 08/13/2018 10:47 AM EDT Narrative Resulting Agency Comment Spec In Lab Romi Velazquez MD CHEMISTRY ORDERABLES [facility] [place] [address] documented in this encounter Visit Diagnoses Diagnosis Atrophic kidney Renal sclerosis, unspecified Abnormal finding in urine Other nonspecific finding on examination of urine documented in this encounter Care Teams Roofing Layer Relationship Specialty Start Date End Date Richie Mendez DO [address] [place] [address] PCP - General Family Medicine 03/27/18 documented as of this encounter
--- OUTSIDE RECORDS SUMMARY | 2023-09-23 16:05 | XMS_ITS | Encounter Summary ---
Author Organization [facility] Address [facility] [place] [address] Care Team Providers Care Stock Driver Name Role Phone Richie Mendez DO Primary Care Provider [phone] Encounter Details Date Type Department Care Team (Late st Contact Info) Description 02/01/2019 Ancillary Procedure [place] [address] Romi Velazquez MD [facility] [place] [address] Social History Tobacco Use Types Packs/Day Years [...] Procedure Name Priority Date/Time Associated Diagnosis Comments FILM LIBRARY STORAGE ONLY CT ABDOMEN AND PELVIS Routine 02/01/2019 12:00 AM EST documented in this encounter Results * Film Library- Storage Only CT Abdomen & Pelvis (02/01/2019 12:00 AM EST) Narrative [facility] - 02/04/2019 5:30 AM EST This exam is auto-finalizing. It's purpose is for storage only. Romi Velazquez MD IMG FILM LIBRARY ORD ERABLES [place], [place] documented in this encounter Visit Diagnoses Not on filedocumented in this encounter Care Teams Stock Driver Relationship Specialty Start Date End Date Richie Mendez DO [address] [place] [address] PCP - General Family Medicine 03/27/18 documented as of this encounter
--- OUTSIDE RECORDS SUMMARY | 2023-09-23 16:06 | XMS_ITS | Encounter Summary ---
Author Organization [facility] Address [facility] [place] [address] Care Team Providers Care A And P Mechanic Name Role Phone Richie Mendez Primary Care Provider [phone] Reason for Visit * Consultation (Urgent) - Closed Specialty Diagnoses / Procedures Referred By Paul pascal Referred To Contact Urology Diagnoses SYMPTOMATIC, HYDRONEPHROTIC L KIDNEY, RENAL FUNCTION LESS THAN 10% Bryn Moralez MD [address] [place] [address] [facility] [place] [place] [address] Referral ID Status Reason Start Date Expiration Date V isits Requested Visits Authorized [id number] Closed Consult, Test & Treat Connection Center 03/04/2018 03/04/2019 1 1 Encounter Details Date Type Department Care Team (Late st Contact Info) Description 03/27/2018 2:20 PM EST [place] [id number] Romi Velazquez MD [facility] [place] [address] Hydronephrosis, left; Atrophic kidney, acquired; Renal cyst, right Social History Tobacco Use Types Packs/Day Years [...] 36.4 ??C (97.6 ??F) 03/27/2018 2:04 PM ES T Respiratory Rate - - Oxygen Saturation - - Inhaled Oxygen Concentration - - Weight - - Height - - Body Mass Index - - documented in this encounter Progress Notes * Romi Velazquez MD - 03/27/2018 2:20 PM [...] follows. 2002: She recalls undergoing SWL in [place] which failed to fully fragment the stone; she then underwent ureteroscopy (reportedly complex/difficult) as well as repeat SWL; she is unsure if she evercleared all of the stone fragments. By report, a KUB was obtained in 2006 which did not show definote stone. 2009: She was seen in [place] with 3-4 months of moderate LLQ pain radiating towards her psilteral labia as well as suspected bladder spasms and was found to have obstruction of the left ureter on CT imaging. She underwent attempt at URS by Dr. Black at [facility]. She was found to have left hydroureteronephrosis [...] ED, 10/27, LLQ pain. This was associated with nausea and chills, but she [...] ending ureter with a tapered ending approximately 5cmfrom the ureterovesical junction and a glidewire was unable to be advanced beyond the defect. Dr. Moralez offered observation vs. Hand assisted lap nephrectomy. She presents to discuss potential additional management options. Today she reports her LLQ pain is nearly gone. Occasionally this will be a 1- 3/10, resolves with tylenol. She is currently rehabing from a left gluteal tear that she elected to manage conservatively,this is more painful for her at current. 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 Phillips regarding the suspected ureteral stricture/distal stone in the setting of an atrophic left kidney. We discussed management options including watchful waiting (which would be reasonable in the absence of recurrent suspected colic episodes or febrileUTIs), repeat attempted endourologic procedures - though I have relayed the likely futility given both Dr. Ponce and Dr. Moralez's experiences, and nephrectomy-open vs. Lap (hand assist, straight lap,vs. Robotic assist lap). We discussed the limitation of each, as well as possible scenarios. With regard to nephrectomy we discussed the nature of the procedure and recovery with lap procedures typically having shorter recovery. I have relayed that in my hands all laparoscopic options would have similar recovery times. We discussed risks including bleeding requiring transfusion, infection, damageto surrounding structures including bowel, pancreas, spleen, repeat procedures, and the cardiopulmonary risks of a general anesthetic. With an understanding she would like to think about her options.I have relayed that she would no doubt receive excellent care from Dr. Moralez, but that we would be happy to take care of her at [facility] should she elect. I have given her my contact information and have asked her to call should she decide to proceed with a surgical intervention. I have extensively counseled her [...] Renal cyst, right Unspecified congenital cystic kidney disease documented in this encounter Care Teams A And P Mechanic Relationship Specialty Start Date End Date Richie Mendez DO [address] [place] [address] PCP - General Family Medicine 03/27/18 documented as of this encounter
--- OUTSIDE RECORDS SUMMARY | 2023-09-23 16:06 | XMS_ITS | Encounter Summary ---
Author Organization [facility] [place] [address] Care Team Providers Care Wireless Development Manager Name Role Phone Richie Trpiathi MD Primary Care Provider [phone] Reason for Visit * Reason Comments Skin Check Encounter Details Date Type Department Care Team (Late st Contact Info) Description 10/31/2015 3:15 PM EDT Office Visit Dermatology at [address] [phone] Kunal Ontiveros MD [address] [facility] [place] [address] Brachioradial pruritus Social History Tobacco Use Types Packs/Day Years Used Date Smoking Tobacco: Never Sex and Gender Information Value Date Recorded Sex Assigned at Not on file Gender Identity Not on file Sexual Orientation Not on file documented as of this encounter Progress Notes * Kunal Ontiveros MD - 10/31/2015 3:15 PM [...] pruritus documented in this encounter Care Teams Wireless Development Manager Relationship Specialty Start Date End Date Richie Tripathi MD [address] [place] [address] PCP - General 01/09/10 03/03/18 documented as of this encounter
--- OUTSIDE RECORDS SUMMARY | 2023-09-23 16:06 | XMS_ITS | Encounter Summary ---
Author Organization [facility] Address [facility] [place] [address] Care Team Providers Care Abattoir Supervisor Name Role Phone Richie Tripathi MD Primary Care Provider [phone] Encounter Details Date Type Department Care Team (Late st Contact Info) Description 02/26/2018 Ancillary Procedure [place] [address] Trent Gavin MD [facility] [place] [address] Social History Tobacco Use Types Packs/Day Years [...] STORAGE ONLY CT ABDOMEN AND PELVIS Routine 02/26/2018 12:00 AM EST documented in this encounter Results * Film Library- Storage Only CT Abdomen & Pelvis (02/26/2018 12:00 AM EST) Narrative RAD - 03/04/2018 10:33 AM EST This exam is for storage only and is auto-finalizing. Trent Gavin MD IMG FILM LIBRARY ORD ERABLES [place], [place] documented in this encounter Visit Diagnoses Not on filedocumented in this encounter Care Teams Abattoir Supervisor Relationship Specialty Start Date End Date Richie Tripathi MD [address] [place] [address] PCP - General 01/09/10 03/03/18 documented as of this encounter
--- OUTSIDE RECORDS SUMMARY | 2023-09-23 16:06 | XMS_ITS | Encounter Summary ---
Author Organization [facility] Address [facility] [place] [address] Care Team Providers Care Planer Setter Name Role Phone Richie Mendez DO Primary Care Provider [phone] Encounter Details Date Type Department Care Team (Late st Contact Info) Description 07/11/2018 10:00 PM EDT Ancillary Procedure [place] [address] Jaylen Randolph MD [facility] [place] [address] Social History Tobacco Use Types Packs/Day Years [...] STORAGE ONLY CT ABDOMEN AND PELVIS Routine 07/11/2018 9:58 PM EDT documented in this encounter Results * Film Library- Storage Only CT Abdomen & Pelvis (07/11/2018 9:58 PM EDT) Narrative [facility] - 07/11/2018 9:58 PM EDT This exam is auto-finalizing. It's purpose is for storage only. Jaylen Randolph MD IMG FILM LIBRARY O RDERABLES [place], [place] documented in this encounter Visit Diagnoses Not on filedocumented in this encounter Care Teams Planer Setter Relationship Specialty Start Date End Date Richie Mendez DO [address] [place] [address] PCP - General Family Medicine 03/27/18 documented as of this encounter
== END ==
PROVIDERS: PCP Family Medicine; Visit Provider Nurse Practitioner
DX: N64.4 Mastodynia (principal); M79.621 Pain in right upper arm; Z80.3 Family history of malignant neoplasm of breast
CPT/HCPCS: 71046

== ENCOUNTER 2023-09-23 16:03 | Outpatient (REF) | payer MEDICARE, SELFPAY ==
[2023-09-23 16:46] LABS: Abs Immature Grans 0.02 10^3/uL (0.0-0.06); Absolute Basophil Count 0.02 10^3/uL (0.0-0.2); Absolute Eosinophil Count 0.14 10^3/uL (0.0-0.7); Absolute Lymphocyte Count 1.11 10^3/uL (1.2-3.4); Absolute Neutrophil Count 3.24 10^3/uL (1.2-6.7); Basophils % 0.4 %; Eosinophils % 2.9 %; HCT 42.9 % (36.0-46.0); HGB 14.1 g/dL (11.2-15.7); Immature Grans % 0.4 %; MCH 29.7 pg (27.0-33.0); MCHC 32.9 % (32.0-36.0); MCV 91 fL (80-95); MPV 11.8 fL (8.0-11.0); Monocytes % 6.2 %; Neutrophils % 67.1 %; Platelet Count 213 10^3/uL (130-400); RBC 4.74 10^6/uL (3.93-5.22); RDW 14.2 % (11.7-14.6); RDW-SD 47.7 fL; WBC 4.83 10^3/uL (4.4-10.8)
[2023-09-23 16:48] LABS: ESR 29 mm/hr (0-30)
[2023-09-23 17:21] LABS: Anion Gap 10.2 mmol/L (3-11); BUN 14 mg/dL (7-18); C-Reactive Protein < 0.50 mg/dL (<or=0.5); CO2 26.8 mmol/L (21.0-32.0); Calcium 9.5 mg/dL (8.5-10.1); Chloride 105 mmol/L (98-107); Estimated GFR 56.95 (mL/min/1.73m2); Glucose 93 mg/dL (74-106); Potassium 4.7 mmol/L (3.5-5.1); Sodium 142 mmol/L (136-145)
== END 2023-09-23 16:04 | disposition home or self-care (01) ==
LOC: LBN 16:03
PROVIDERS: PCP Family Medicine; Visit Provider Nurse Practitioner
DX: M79.10 Myalgia, unspecified site (principal); M79.621 Pain in right upper arm; N64.4 Mastodynia; Z80.3 Family history of malignant neoplasm of breast
CPT/HCPCS: 80048; 85652; 85025; 86140

== ENCOUNTER → 2023-09-25 11:34 | Outpatient (CLI) | payer MEDICARE, SELFPAY ==
--- NOTE | 2023-09-25 09:09 | DI.US_ITS ---
Exam(s) US BREAST RT COMPLETE MG MAMMO DIAGNOSTIC BI EXAM: MG MAMMO DIAGNOSTIC BI AND COMPLETE RIGHT BREAST ULTRASOUND CLINICAL HISTORY: right breast and axilla pain,family h/o breast ca,n64.4,. TECHNIQUE: BILATERAL CC AND MLO mammographic images were obtained with 3D tomosynthesis technique an d utilizing computer aided detection (CAD). Additional exaggerated CC view of the right breast. COMPLETE RIGHT BREAST ULTRASOUND performed including all 4 quadrants as well as the axillary regions. COMPARISON: Prior mammograms were reviewed FINDINGS: DIAGNOSTIC BILATERAL MAMMOGRAM: There has been no significant change in the appearance and distribution of the fibroglandular tissue. No new masses nor malignant-appearing microcalcification groups. No new architectural distortion or skin thickening-retraction. COMPLETE RIGHT BREAST ULTRASOUND: No evidence of solid or significant cystic lesions in all 4 quadrants. Scanning of the right axilla is negative for adenopathy. IMPRESSION: 1. No radiographic evidence of malignancy. 2. Negative complete right breast ultrasound The patient was informed of the findings and follow-up recommendations by myself prior to leaving the department today. BI-RADS Category 1 - Negative Breast Density - Category B - Scattered areas of fibroglandular density Breast density Category C or D implies that the patient has dense breast tissue. Dense breast tissue can make it harder to find cancer on a mammogram. Dense breast tissue is also associated with an incr eased risk of breast cancer. This information about the result of the mammogram report was provided to the patient to raise their awareness. Use this report when you speak with the patient about their risks for breast cancer, which includes their family history. At that time, you may recommend additional screening tests (Ultrasoun d or MRI) as these tests may add significant information. A negative radiographic report should not delay biopsy if a dominant or clinically suspicious mass is present. Up to ten percent of cancers are not identified on mammography. A negative report may reinforce clinical impression. Adenosis and dense breasts may obscure an underlying neoplasm. False positive reports average 6 to 10%. Patient will receive a letter notifying them of these results.
== END ==
PROVIDERS: PCP Family Medicine; Visit Provider Nurse Practitioner
DX: M79.621 Pain in right upper arm; Z80.3 Family history of malignant neoplasm of breast; N64.4 Mastodynia
CPT/HCPCS: 76642; 77062; 77066; G0279

== ENCOUNTER 2024-02-16 03:07 | Outpatient (CLI) | payer MEDICARE, SELFPAY ==
[2024-02-16 12:05] LABS: Anion Gap 10.8 mmol/L (3-11); BUN 16 mg/dL (7-18); CO2 27.2 mmol/L (21.0-32.0); CREATININE 1.1 mg/dL (0.55-1.02); Calcium 9.4 mg/dL (8.5-10.1); Chloride 103 mmol/L (98-107); Estimated GFR 50.48 (mL/min/1.73m2); Glucose 95 mg/dL (74-106); Potassium 4.2 mmol/L (3.5-5.1); Sodium 141 mmol/L (136-145)
== END 2024-02-16 03:08 | disposition home or self-care (01) ==
LOC: LBO 03:07
PROVIDERS: PCP Family Medicine; Referring Provider Family Medicine; Visit Provider Family Medicine
DX: N18.9 Chronic kidney disease, unspecified (principal)
CPT/HCPCS: 36415; 80048

== ENCOUNTER 2024-12-09 14:57 | Outpatient (CLI) | payer MEDICARE, SELFPAY ==
--- NOTE | 2024-12-09 11:15 | DI.RAD_ITS ---
Exam(s) XR KNEE RT 4V AP,LAT,HESHAM,PAT EXAM: XR KNEE RT 4V AP,LAT,HESHAM,PAT CLINICAL HISTORY: right knee pain. TECHNIQUE: 2D digital imaging was performed. Three views. COMPARISON: CR XR KNEE RT 3V AP,LAT,HESHAM from 08/14/2020 FINDINGS: BONES: No acute fracture is present. No bony destructive lesion is seen. JOINTS: There is severe narrowing of the lateral femoral tibial joint space, with a [id number] appearance. There is prominent spurring at the latter femoral condyle and tibial plateau. No joint effusion is seen. The medial femoral tibial joint space shows compensatory widening. There is valgus a ngulation at the knee. SOFT TISSUE: There is stable appearance of the elongated calcific density projecting anterior to the lateral femoral condyle which again may be a low loose body. There are moderate degenerative changes of the medial patellofemoral joint. 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 Stable appearance of joint space loose body. DATA REPOSITORY: RADIATION DOSE DELIVERED:
== END 2024-12-09 14:58 | disposition home or self-care (01) ==
LOC: DIORS 14:57
PROVIDERS: PCP Family Medicine; Referring Provider Family Medicine; Visit Provider Student in an Organized Health Care Education/Training Program
DX: M17.11 Unilateral primary osteoarthritis, right knee (principal)
CPT/HCPCS: 99213; 20610; J1010; 73564